=== PATIENT | female | born 1995 | race Caucasian/White ===

== ENCOUNTER → 2017-02-06 | Outpatient (CLI) | payer OTHER, SELFPAY | PROVIDERS: Visit Provider Obstetrics & Gynecology | DX: Z36.89 Encounter for other specified antenatal screening (principal); Z34.80 Encounter for supervision of other normal pregnancy, unspecified trimester | CPT/HCPCS: 36415; 80055; 80305; 84443; 86703; G0432 ==

== ENCOUNTER → 2017-04-27 15:38 | Outpatient (CLI) | payer OTHER, SELFPAY ==
[2017-05-12 16:29] LABS: Results Report (.)
[2017-06-02 16:08] LABS: Gestat. Age Based On EDD
[2017-06-02 16:09] LABS: Insulin Dep Diabetes No
[2017-06-02 16:10] LABS: DIA MoM 1.85; DSR (Second Trimester) 1 IN 780; OSBR Risk 1 IN 10000; uE3 MoM 0.51
== END ==
PROVIDERS: PCP Emergency Medicine; Visit Provider Obstetrics & Gynecology
DX: Z36.0 Encounter for antenatal screening for chromosomal anomalies (principal)
CPT/HCPCS: 36415; 82106

== ENCOUNTER → 2017-06-09 10:32 | Outpatient (CLI) | payer OTHER, SELFPAY ==
--- NOTE | 2017-06-09 10:36 | XR_ITS ---
XR chest 2V HISTORY: ITS.REASON: severe cough in ORDERING PHYSICIAN: Nicholas Michelle MD PATIENT AGE: 22 years COMPARISON: FINDINGS: The cardiomediastinal silhouette and pulmonary vascularity are within normal limits. There is some patchy density in the right middle lobe consistent with a patchy area of pneumonia. Remaining lungs are clear. There is some minimal blunting of the right CP angle. This however was present on the previous exam. IMPRESSION: Patchy pneumonia in the right middle lobe
== END ==
PROVIDERS: PCP Emergency Medicine; Visit Provider Obstetrics & Gynecology
DX: Z34.90 Encounter for supervision of normal pregnancy, unspecified, unspecified trimester (principal); J40 Bronchitis, not specified as acute or chronic
CPT/HCPCS: 71046

== ENCOUNTER → 2017-06-22 15:52 | Outpatient (CLI) | payer OTHER, SELFPAY ==
[2017-06-22 19:05] LABS: Glucose 1 Hour 139 mg/dL (74-106)
== END ==
PROVIDERS: Visit Provider Obstetrics & Gynecology
DX: Z34.90 Encounter for supervision of normal pregnancy, unspecified, unspecified trimester (principal)
CPT/HCPCS: 36415; 82951

== ENCOUNTER 2017-08-20 22:59 | Outpatient (CLI) | payer OTHER, SELFPAY ==
[2017-08-20 23:10] VITALS: BMI 23.8
[2017-08-20 23:30] LABS: Appearance,Urine CLEAR (Clear); Bilirubin,Urine Negative (Negative); Blood, Urine Negative (Negative); Color,Urine YELLOW (Yellow); Glucose,Urine (UA) Negative (Negative); Ketones,Urine Negative (Negative); Leukocyte Esterase,Urine Negative (Negative); Microscopic, Urine URINE MICROSCOPIC (MICROSCOPIC); Nitrate,Urine Negative (Negative); Protein,Urine Negative (Negative); Specific Gravity, Urine <= 1.005 (1.005-1.030); Urobilinogen,Urine 0.2 EU/dl (0.2)
[2017-08-20 23:35] VITALS: BP 131/88; PULSE 112; RESP 16; TEMP 37.1; O2SAT 98; BMI 23.8
[2017-08-20 23:35] LABS: Bacteria,Urine 1+ /lpf
[2017-08-21 00:07] LABS: Fetal Fibronectin (Rapid) Negative (Negative)
== END 2017-08-21 00:15 | disposition home or self-care (01) ==
LOC: OBOUT 23:04 → OB 23:05
PROVIDERS: PCP Obstetrics & Gynecology; Visit Provider Obstetrics & Gynecology
DX: O47.03 False labor before 37 completed weeks of gestation, third trimester (principal); Z3A.35 35 weeks gestation of pregnancy
CPT/HCPCS: 59025; 81001; 82731

== ENCOUNTER → 2017-08-24 14:46 | Outpatient (REF) | payer OTHER, SELFPAY | LOC: LAB 14:46 | PROVIDERS: Visit Provider Obstetrics & Gynecology | DX: Z34.90 Encounter for supervision of normal pregnancy, unspecified, unspecified trimester (principal) | CPT/HCPCS: 86403 ==

== ENCOUNTER 2017-09-17 05:07 | Inpatient (IN) ==
[2017-09-17 05:44] LABS: Basophils # 0.1 K/mm3 (0-0.2); Basophils % 0.3 % (0.1-2.0); Eosinophils # 0.2 K/mm3 (0.0-0.4); Eosinophils % 1.1 % (0.1-12.0); Hematocrit 35.5 % (37.0-47.0); Hemoglobin 11.9 g/dL (12.2-16.2); Lymphocytes # 3.5 K/mm3 (0.7-4.5); Lymphocytes % 22.4 K/mm3 (10-50); Mean Corpuscular HGB Conc 33.6 g/dL (31.8-35.4); Mean Corpuscular Hemoglobin 31.6 pg (27.0-31.2); Mean Corpuscular Volume 94.2 fl (81-99); Mean Platelet Volume 7.4 fl (7.4-10.4); Monocytes # 0.8 K/mm3 (0.1-1.0); Monocytes % 5.3 % (1.7-9.3); Neutrophils # 11.1 K/mm3 (1.8-7.8); Neutrophils % 70.9 % (37.0-80.0); Platelet Count 338 K/mm3 (142-424); Red Blood Count 3.76 M/mm3 (4.20-5.40); Red Cell Distribution Width 13.4 % (11.5-17.5); White Blood Count 15.7 K/mm3 (4.8-10.8)
--- NOTE | 2017-09-17 06:08 | Progress Note ---
Internal Medicine - PN: Subj *Date: 09/17/17 (This 22-year-old 4, para 3, Ab0 white female was admitted 39 2/7 weeks with irregular contractions. Her cervix is 2 cm dilated, 75% effaced, with a presenting vertex at -2 station. Plan is for augmentation with intravenous Pitocin, and delivery.) *Time: 06:07 Exam Vital signs and Labs for Last 24 Hours: Laboratory Results - last 24 hr 09/17/17 05:35: WBC 15.7 H, RBC 3.76 L, Hgb 11.9 L, Hct 35.5 L, MCV 94.2, MCH 31.6 H, MCHC 33.6, RDW 13.4, Plt Count 338, MPV 7.4, Neut % (Auto) 70.9, Lymph % (Auto) 22.4, [place] % (Auto) 5.3, Eos % (Auto) 1.1, Baso % (Auto) 0.3, Neut # ( Auto) 11.1 H, Lymph # (Auto) 3.5, [place] # (Auto) 0.8, Eos # (Auto) 0.2, Baso # ( Auto) 0.1 I & O for Last 24 hours: Intake & Output 09/14/17 09/15/17 09/16/17 09/17/17 11:59 11:59 11:59 11:59 Weight 138 lb
[2017-09-17 06:17] LABS: Eosinophils % 2 % (0-3); Lymphocytes % 20 % (10-50); Monocytes % 1 % (2-9); Neutrophils % 77 % (42-76); Total Cells Counted 100
[2017-09-17 06:18] LABS: Anisocytosis 1+; Stomatocytes 1+
--- NOTE | 2017-09-17 08:31 | Progress Note ---
Internal Medicine - PN: Subj *Date: 09/17/17 (Cervix now 3 cm dilated 75% effaced, with the presenting vertex at -2 station. Patient will receive an epidural.) *Time: 08:30 Exam Vital signs and Labs for Last 24 Hours: Temp Pulse Resp BP Pulse Ox 98.2 F 74 16 124/64 99 09/17/17 08:00 09/17/17 08:00 09/17/17 08:00 09/17/17 08:00 09/17/17 06:12 Laboratory Results - last 24 hr 09/17/17 05:35: WBC 15.7 H, RBC 3.76 L, Hgb 11.9 L, Hct 35.5 L, MCV 94.2, MCH 31.6 H, MCHC 33.6, RDW 13.4, Plt Count 338, MPV 7.4, Neut % (Auto) 70.9, Lymph % (Auto) 22.4, [place] % (Auto) 5.3, Eos % (Auto) 1.1, Baso % (Auto) 0.3, Neut # ( Auto) 11.1 H, Lymph # (Auto) 3.5, [place] # (Auto) 0.8, Eos # (Auto) 0.2, Baso # ( Auto) 0.1, Total Counted 100, Neutrophils % (Manual) 77 H, Lymphocytes % (Manual ) 20, Monocytes % (Manual) 1 L, Eosinophils % (Manual) 2, Platelet Estimate Normal, Anisocytosis 1+, Stomatocytes 1+ 09/17/17 05:35: Blood Type O Positive, Antibody Screen Negative I & O for Last 24 hours: Intake & Output 09/14/17 09/15/17 09/16/17 09/17/17 11:59 11:59 11:59 11:59 Weight 138 lb
--- NOTE | 2017-09-17 09:42 | Progress Note ---
[facility] Anesthesia Checklist - Patient Identification Patient Identification: Arm Band - Structural Data Admitted From: Inpatient Planned Operative Procedure/s: labor epidural Consent for Planned Operative Procedure(s) Verified: Yes Verified Documents: Surgical Consent, History and Physical - NPO Status Verified Time NPO: 00:00 - Additional verifications Anesthesia Reactions: No - Airway Assessment C-Spine Mobility Assessed: Yes TMJ Mobility Assessed: Yes Dentition: Good Dentition - Neurological Assessment Level of Consciousness: Awake, Alert - Anesthesia Plan Anesthesia Risk discussed: Yes Anesthesia Plan: Verified ASA Class: II Anesthesia Type: Epidural [facility] Anesthesia HX I have reviewed the patient's past medical history: Yes Medical History: Reports:: Anxiety, Hypertension Other Medical History: Reports: Other Laterality Cases: Bilateral: Tonsillectomy Other Surgeries: Yes: Other. No: Amputation: No Fractures: No *Family Hx:: Hypertension, Diabetes
--- NOTE | 2017-09-17 09:49 | Progress Note ---
Internal Medicine - PN: Subj *Date: 09/17/17 *Time: 09:47 (Cervix now 3 cm, 80%, -2 vertex. Amniotomy revealed clear fluid and an internal toco has been placed. Epidural is in situ.) Exam Vital signs and Labs for Last 24 Hours: Temp Pulse Resp BP Pulse Ox 98.2 F 74 16 124/64 99 09/17/17 08:00 09/17/17 08:00 09/17/17 08:00 09/17/17 08:00 09/17/17 06:12 Laboratory Results - last 24 hr 09/17/17 05:35: WBC 15.7 H, RBC 3.76 L, Hgb 11.9 L, Hct 35.5 L, MCV 94.2, MCH 31.6 H, MCHC 33.6, RDW 13.4, Plt Count 338, MPV 7.4, Neut % (Auto) 70.9, Lymph % (Auto) 22.4, [place] % (Auto) 5.3, Eos % (Auto) 1.1, Baso % (Auto) 0.3, Neut # ( Auto) 11.1 H, Lymph # (Auto) 3.5, [place] # (Auto) 0.8, Eos # (Auto) 0.2, Baso # ( Auto) 0.1, Total Counted 100, Neutrophils % (Manual) 77 H, Lymphocytes % (Manual ) 20, Monocytes % (Manual) 1 L, Eosinophils % (Manual) 2, Platelet Estimate Normal, Anisocytosis 1+, Stomatocytes 1+ 09/17/17 05:35: Blood Type O Positive, Antibody Screen Negative I & O for Last 24 hours: Intake & Output 09/14/17 09/15/17 09/16/17 09/17/17 11:59 11:59 11:59 11:59 Weight 138 lb
--- NOTE | 2017-09-17 11:02 | Progress Note ---
Internal Medicine - PN: Subj *Date: 09/17/17 (Cervix now 4 cm, 80%, -2 vertex. Comfortable with epidural.) *Time: 11:02 Exam Vital signs and Labs for Last 24 Hours: Temp Pulse Resp BP Pulse Ox 98.2 F 74 16 124/64 99 09/17/17 08:00 09/17/17 08:00 09/17/17 08:00 09/17/17 08:00 09/17/17 06:12 Laboratory Results - last 24 hr 09/17/17 05:35: WBC 15.7 H, RBC 3.76 L, Hgb 11.9 L, Hct 35.5 L, MCV 94.2, MCH 31.6 H, MCHC 33.6, RDW 13.4, Plt Count 338, MPV 7.4, Neut % (Auto) 70.9, Lymph % (Auto) 22.4, [place] % (Auto) 5.3, Eos % (Auto) 1.1, Baso % (Auto) 0.3, Neut # ( Auto) 11.1 H, Lymph # (Auto) 3.5, [place] # (Auto) 0.8, Eos # (Auto) 0.2, Baso # ( Auto) 0.1, Total Counted 100, Neutrophils % (Manual) 77 H, Lymphocytes % (Manual ) 20, Monocytes % (Manual) 1 L, Eosinophils % (Manual) 2, Platelet Estimate Normal, Anisocytosis 1+, Stomatocytes 1+ 09/17/17 05:35: Blood Type O Positive, Antibody Screen Negative I & O for Last 24 hours: Intake & Output 09/14/17 09/15/17 09/16/17 09/17/17 11:59 11:59 11:59 11:59 Weight 138 lb
[2017-09-17 12:45] LABS: Microscopic, Urine URINE MICROSCOPIC (MICROSCOPIC)
--- NOTE | 2017-09-17 13:18 | Progress Note ---
Internal Medicine - PN: Subj *Date: 09/17/17 (Contractions have become irregular. Cervix 4 cm. We will increase IV Pitocin.) *Time: 13:17 Exam Vital signs and Labs for Last 24 Hours: Temp Pulse Resp BP Pulse Ox 98.2 F 74 16 124/64 99 09/17/17 08:00 09/17/17 08:00 09/17/17 08:00 09/17/17 08:00 09/17/17 06:12 Laboratory Results - last 24 hr 09/17/17 05:35: WBC 15.7 H, RBC 3.76 L, Hgb 11.9 L, Hct 35.5 L, MCV 94.2, MCH 31.6 H, MCHC 33.6, RDW 13.4, Plt Count 338, MPV 7.4, Neut % (Auto) 70.9, Lymph % (Auto) 22.4, [place] % (Auto) 5.3, Eos % (Auto) 1.1, Baso % (Auto) 0.3, Neut # ( Auto) 11.1 H, Lymph # (Auto) 3.5, [place] # (Auto) 0.8, Eos # (Auto) 0.2, Baso # ( Auto) 0.1, Total Counted 100, Neutrophils % (Manual) 77 H, Lymphocytes % (Manual ) 20, Monocytes % (Manual) 1 L, Eosinophils % (Manual) 2, Platelet Estimate Normal, Anisocytosis 1+, Stomatocytes 1+ 09/17/17 05:35: Blood Type O Positive, Antibody Screen Negative I & O for Last 24 hours: Intake & Output 09/15/17 09/16/17 09/17/17 09/18/17 11:59 11:59 11:59 11:59 Weight 138 lb
[2017-09-17 13:22] LABS: Appearance,Urine CLEAR (Clear); Bilirubin,Urine Negative (Negative); Blood, Urine Negative (Negative); Color,Urine YELLOW (Yellow); Glucose,Urine (UA) Negative (Negative); Ketones,Urine Negative (Negative); Leukocyte Esterase,Urine Negative (Negative); Protein,Urine Negative (Negative); Urobilinogen,Urine 0.2 EU/dl (0.2)
--- NOTE | 2017-09-17 14:47 | Progress Note ---
Internal Medicine - PN: Subj *Date: 09/17/17 (Cervix has not changed in spite of good contractions. Head has not descended further. Plan: Observation for now.) *Time: 14:46 Exam Vital signs and Labs for Last 24 Hours: Temp Pulse Resp BP Pulse Ox 98.2 F 74 16 124/64 99 09/17/17 08:00 09/17/17 08:00 09/17/17 08:00 09/17/17 08:00 09/17/17 06:12 Laboratory Results - last 24 hr 09/17/17 05:35: WBC 15.7 H, RBC 3.76 L, Hgb 11.9 L, Hct 35.5 L, MCV 94.2, MCH 31.6 H, MCHC 33.6, RDW 13.4, Plt Count 338, MPV 7.4, Neut % (Auto) 70.9, Lymph % (Auto) 22.4, [place] % (Auto) 5.3, Eos % (Auto) 1.1, Baso % (Auto) 0.3, Neut # ( Auto) 11.1 H, Lymph # (Auto) 3.5, [place] # (Auto) 0.8, Eos # (Auto) 0.2, Baso # ( Auto) 0.1, Total Counted 100, Neutrophils % (Manual) 77 H, Lymphocytes % (Manual ) 20, Monocytes % (Manual) 1 L, Eosinophils % (Manual) 2, Platelet Estimate Normal, Anisocytosis 1+, Stomatocytes 1+ 09/17/17 05:35: Blood Type O Positive, Antibody Screen Negative 09/17/17 09:45: Urine Color Yellow, Urine Appearance Clear, Urine pH 8.0, Ur Specific [place] 1.010, Urine Protein Negative, Urine Glucose (UA) Negative, Urine Ketones Negative, Urine Blood Negative, Urine Nitrate Negative, Urine Bilirubin Negative, Urine Urobilinogen 0.2, Ur Leukocyte Esterase Negative, Urine RBC 3-5, Urine WBC None, Ur Squamous Epith Cells None, Urine Bacteria None I & O for Last 24 hours: Intake & Output 09/15/17 09/16/17 09/17/17 09/18/17 11:59 11:59 11:59 11:59 Weight 138 lb
--- NOTE | 2017-09-17 16:05 | Progress Note ---
Internal Medicine - PN: Subj *Date: 09/17/17 (Still no progress in spite of good contractions. We will continue to observe for now. Discussed possible .) *Time: 16:04 Exam Vital signs and Labs for Last 24 Hours: Temp Pulse Resp BP Pulse Ox 98.2 F 74 16 124/64 99 09/17/17 08:00 09/17/17 08:00 09/17/17 08:00 09/17/17 08:00 09/17/17 06:12 Laboratory Results - last 24 hr 09/17/17 05:35: WBC 15.7 H, RBC 3.76 L, Hgb 11.9 L, Hct 35.5 L, MCV 94.2, MCH 31.6 H, MCHC 33.6, RDW 13.4, Plt Count 338, MPV 7.4, Neut % (Auto) 70.9, Lymph % (Auto) 22.4, [place] % (Auto) 5.3, Eos % (Auto) 1.1, Baso % (Auto) 0.3, Neut # ( Auto) 11.1 H, Lymph # (Auto) 3.5, [place] # (Auto) 0.8, Eos # (Auto) 0.2, Baso # ( Auto) 0.1, Total Counted 100, Neutrophils % (Manual) 77 H, Lymphocytes % (Manual ) 20, Monocytes % (Manual) 1 L, Eosinophils % (Manual) 2, Platelet Estimate Normal, Anisocytosis 1+, Stomatocytes 1+ 09/17/17 05:35: Blood Type O Positive, Antibody Screen Negative 09/17/17 09:45: Urine Color Yellow, Urine Appearance Clear, Urine pH 8.0, Ur Specific [place] 1.010, Urine Protein Negative, Urine Glucose (UA) Negative, Urine Ketones Negative, Urine Blood Negative, Urine Nitrate Negative, Urine Bilirubin Negative, Urine Urobilinogen 0.2, Ur Leukocyte Esterase Negative, Urine RBC 3-5, Urine WBC None, Ur Squamous Epith Cells None, Urine Bacteria None I & O for Last 24 hours: Intake & Output 09/15/17 09/16/17 09/17/17 09/18/17 11:59 11:59 11:59 11:59 Weight 138 lb
--- NOTE | 2017-09-17 16:55 | Progress Note ---
Internal Medicine - PN: Subj *Date: 09/17/17 (Cervix now a rim, vertex at 0/+1 station.) *Time: 16:55 Exam Vital signs and Labs for Last 24 Hours: Temp Pulse Resp BP Pulse Ox 98.2 F 74 16 124/64 99 09/17/17 08:00 09/17/17 08:00 09/17/17 08:00 09/17/17 08:00 09/17/17 06:12 Laboratory Results - last 24 hr 09/17/17 05:35: WBC 15.7 H, RBC 3.76 L, Hgb 11.9 L, Hct 35.5 L, MCV 94.2, MCH 31.6 H, MCHC 33.6, RDW 13.4, Plt Count 338, MPV 7.4, Neut % (Auto) 70.9, Lymph % (Auto) 22.4, [place] % (Auto) 5.3, Eos % (Auto) 1.1, Baso % (Auto) 0.3, Neut # ( Auto) 11.1 H, Lymph # (Auto) 3.5, [place] # (Auto) 0.8, Eos # (Auto) 0.2, Baso # ( Auto) 0.1, Total Counted 100, Neutrophils % (Manual) 77 H, Lymphocytes % (Manual ) 20, Monocytes % (Manual) 1 L, Eosinophils % (Manual) 2, Platelet Estimate Normal, Anisocytosis 1+, Stomatocytes 1+ 09/17/17 05:35: Blood Type O Positive, Antibody Screen Negative 09/17/17 09:45: Urine Color Yellow, Urine Appearance Clear, Urine pH 8.0, Ur Specific [place] 1.010, Urine Protein Negative, Urine Glucose (UA) Negative, Urine Ketones Negative, Urine Blood Negative, Urine Nitrate Negative, Urine Bilirubin Negative, Urine Urobilinogen 0.2, Ur Leukocyte Esterase Negative, Urine RBC 3-5, Urine WBC None, Ur Squamous Epith Cells None, Urine Bacteria None I & O for Last 24 hours: Intake & Output 09/15/17 09/16/17 09/17/17 09/18/17 11:59 11:59 11:59 11:59 Weight 138 lb
--- NOTE | 2017-09-17 16:58 | Progress Note ---
Internal Medicine - PN: Subj *Date: 09/17/17 (Cervix still 4 cm, but the vertex has descended to -1 station.) *Time: 16:57 Exam Vital signs and Labs for Last 24 Hours: Temp Pulse Resp BP Pulse Ox 98.2 F 74 16 124/64 99 09/17/17 08:00 09/17/17 08:00 09/17/17 08:00 09/17/17 08:00 09/17/17 06:12 Laboratory Results - last 24 hr 09/17/17 05:35: WBC 15.7 H, RBC 3.76 L, Hgb 11.9 L, Hct 35.5 L, MCV 94.2, MCH 31.6 H, MCHC 33.6, RDW 13.4, Plt Count 338, MPV 7.4, Neut % (Auto) 70.9, Lymph % (Auto) 22.4, [place] % (Auto) 5.3, Eos % (Auto) 1.1, Baso % (Auto) 0.3, Neut # ( Auto) 11.1 H, Lymph # (Auto) 3.5, [place] # (Auto) 0.8, Eos # (Auto) 0.2, Baso # ( Auto) 0.1, Total Counted 100, Neutrophils % (Manual) 77 H, Lymphocytes % (Manual ) 20, Monocytes % (Manual) 1 L, Eosinophils % (Manual) 2, Platelet Estimate Normal, Anisocytosis 1+, Stomatocytes 1+ 09/17/17 05:35: Blood Type O Positive, Antibody Screen Negative 09/17/17 09:45: Urine Color Yellow, Urine Appearance Clear, Urine pH 8.0, Ur Specific [place] 1.010, Urine Protein Negative, Urine Glucose (UA) Negative, Urine Ketones Negative, Urine Blood Negative, Urine Nitrate Negative, Urine Bilirubin Negative, Urine Urobilinogen 0.2, Ur Leukocyte Esterase Negative, Urine RBC 3-5, Urine WBC None, Ur Squamous Epith Cells None, Urine Bacteria None I & O for Last 24 hours: Intake & Output 09/15/17 09/16/17 09/17/17 09/18/17 11:59 11:59 11:59 11:59 Weight 138 lb
--- NOTE | 2017-09-17 18:21 | Progress Note ---
Internal Medicine - PN: Subj *Date: 09/17/17 *Time: 18:20 (Cervix is now 5 cm dilated. Contractions are regular. Baby looks good on the monitor. Signing out to Dr. Nisha Bowen and the patient understands that and is accepting of that plan.) Exam Vital signs and Labs for Last 24 Hours: Temp Pulse Resp BP Pulse Ox 98.2 F 74 16 124/64 99 09/17/17 08:00 09/17/17 08:00 09/17/17 08:00 09/17/17 08:00 09/17/17 06:12 Laboratory Results - last 24 hr 09/17/17 05:35: WBC 15.7 H, RBC 3.76 L, Hgb 11.9 L, Hct 35.5 L, MCV 94.2, MCH 31.6 H, MCHC 33.6, RDW 13.4, Plt Count 338, MPV 7.4, Neut % (Auto) 70.9, Lymph % (Auto) 22.4, [place] % (Auto) 5.3, Eos % (Auto) 1.1, Baso % (Auto) 0.3, Neut # ( Auto) 11.1 H, Lymph # (Auto) 3.5, [place] # (Auto) 0.8, Eos # (Auto) 0.2, Baso # ( Auto) 0.1, Total Counted 100, Neutrophils % (Manual) 77 H, Lymphocytes % (Manual ) 20, Monocytes % (Manual) 1 L, Eosinophils % (Manual) 2, Platelet Estimate Normal, Anisocytosis 1+, Stomatocytes 1+ 09/17/17 05:35: Blood Type O Positive, Antibody Screen Negative 09/17/17 09:45: Urine Color Yellow, Urine Appearance Clear, Urine pH 8.0, Ur Specific [place] 1.010, Urine Protein Negative, Urine Glucose (UA) Negative, Urine Ketones Negative, Urine Blood Negative, Urine Nitrate Negative, Urine Bilirubin Negative, Urine Urobilinogen 0.2, Ur Leukocyte Esterase Negative, Urine RBC 3-5, Urine WBC None, Ur Squamous Epith Cells None, Urine Bacteria None I & O for Last 24 hours: Intake & Output 09/15/17 09/16/17 09/17/17 09/18/17 11:59 11:59 11:59 11:59 Weight 138 lb
--- NOTE | 2017-09-18 00:37 | Progress Note ---
Labor Note - Subjective: Date: 09/18/17 Time: 00:26 irregular contractions Comment:: IOL for hypertension in . BP has been stable throughout labor course. When I assumed care of this patient, pitocin was at 39mU and contraction pattern irregular/dysfunctional, with coupling. Cervix was 5cm but effacement had changed from 50% to 75%. Pitocin was stopped for 30 minutes and restarted at 10mU. 2 hours later she was examined by nursing staff and cervix reported 8cm but still -1 station. 1 hour after that cervix was reported as anterior lip and zero station. An hour after that exam, I examined the patient myself and cervix is 5/50%. Nursing assessment is that cervix may be edematous, but this is the first exam I have done on her today so it is unclear to me if cervix has become edematous or simply is only 50% effaced. Pelvis is adequate, with gynecoid structure and no concern for CPD. In light of aggressive pitocin augmentation and early amniotomy prior to onset of active labor pattern, along with dysfunctional pattern of contractions/coupling, it seems premature to declare a failure to progress in labor. heart tracing remains reassuring and the patient has not had any fever or signs of chorioamnionitis. She does not want to proceed with a c section at this time, and I agree that in the face of reassuring status, it is reasonable to give her more time to dilate under more optimal circumstances. Will turn pitocin off for 2 hours and allow uterus to rest and receptors to desaturate. Will begin pitocin again at that time, only increasing by 2mU q 20 minutes but without going so high. Patient repositioned and encouraged to rest for a few hours before resuming induction. Will start ampicillin in anticipation of prolonged ROM. - Objective: NST:: Reactive Contractions:: every 4-5 minutes Cervical Dilation:: 5 Effacement:: 75% Station: -1 Membranes: ruptured - Fetus: Monitoring?: Yes monitoring type:: Internal - Assessment: Patient Problems: All Active Problems Hypertension complicating in third trimester (Acute) Smoking (tobacco) complicating , third trimester (Acute) Encounter for induction of labor (Acute) Anemia during in third trimester (Acute) Pneumonia (Acute) (Acute)
--- NOTE | 2017-09-18 05:57 | Progress Note ---
Internal Medicine - PN: Subj *Date: 09/18/17 *Time: 05:55 (This is hospital day #2. The patient has now been in labor for almost 24 hours, without significant progress. At around 2300 hrs. last night she exhibited a low-grade fever and was started on IV ampicillin. Her current temperature is 99.3 p.o. and she has received Ancef and Flagyl. Her cervix is still in the 5 cm range. To this point the baby looks good on the monitor and we seen no meconium. Plan is for section. The patient understands and accepts the rationale and risks of surgery.) Exam Vital signs and Labs for Last 24 Hours: Temp Pulse Resp BP Pulse Ox 98.2 F 74 16 124/64 99 09/17/17 08:00 09/17/17 08:00 09/17/17 08:00 09/17/17 08:00 09/17/17 06:12 Laboratory Results - last 24 hr 09/17/17 05:35: Total Counted 100, Neutrophils % (Manual) 77 H, Lymphocytes % ( Manual) 20, Monocytes % (Manual) 1 L, Eosinophils % (Manual) 2, Platelet Estimate Normal, Anisocytosis 1+, Stomatocytes 1+ 09/17/17 05:35: Blood Type O Positive, Antibody Screen Negative 09/17/17 09:45: Urine Color Yellow, Urine Appearance Clear, Urine pH 8.0, Ur Specific [place] 1.010, Urine Protein Negative, Urine Glucose (UA) Negative, Urine Ketones Negative, Urine Blood Negative, Urine Nitrate Negative, Urine Bilirubin Negative, Urine Urobilinogen 0.2, Ur Leukocyte Esterase Negative, Urine RBC 3-5, Urine WBC None, Ur Squamous Epith Cells None, Urine Bacteria None I & O for Last 24 hours: Intake & Output 09/15/17 09/16/17 09/17/17 09/18/17 11:59 11:59 11:59 11:59 Weight 138 lb
[2017-09-18 06:23] LABS: Basophils % 0.2 % (0.1-2.0); Eosinophils # 0.3 K/mm3 (0.0-0.4); Eosinophils % 1.5 % (0.1-12.0); Hematocrit 33.9 % (37.0-47.0); Hemoglobin 11.4 g/dL (12.2-16.2); Lymphocytes # 1.7 K/mm3 (0.7-4.5); Lymphocytes % 9.6 K/mm3 (10-50); Mean Corpuscular HGB Conc 33.7 g/dL (31.8-35.4); Mean Platelet Volume 7.3 fl (7.4-10.4); Monocytes # 0.9 K/mm3 (0.1-1.0); Monocytes % 4.8 % (1.7-9.3); Neutrophils # 14.8 K/mm3 (1.8-7.8); Neutrophils % 83.9 % (37.0-80.0); Platelet Count 273 K/mm3 (142-424); Red Blood Count 3.56 M/mm3 (4.20-5.40); Red Cell Distribution Width 13.4 % (11.5-17.5); White Blood Count 17.6 K/mm3 (4.8-10.8)
--- NOTE | 2017-09-18 07:18 | Operative Note ---
Date of procedure: 09/18/17 Pre-op Diagnosis:: 1. Term intrauterine . 2. Failure to progress. 3. Presumed chorioamnionitis. Post-op Diagnosis:: 1. Term intrauterine , delivered--- 8/10, 5 lbs. 14 oz., 17.5 inch female , born at 0634. 2. Failure to progress. 3. Presumed chorioamnionitis. 4. Partial placenta accreta. Procedure performed:: Primary low transverse cervical section with manual removal of placenta Surgeon:: Nicholas Michelle MD Braid Pattern Setter(s):: Dr. Bowen PRODUCTION SORTER:: Other (MAKENZIE La) Anesthesia: epidural Estimated blood loss (mL): 400 Operative findings:: Term intrauterine with partial accreta Operative note:: After the patient was prepped and draped in usual fashion and epidural anesthesia was activated, a low Pfannenstiel incision was made across midline, and the was in usual fashion, bleeders being clamped and coagulated along the way. The peritoneum was entered with a knife, and extended above and below with Metzenbaum scissors. The bladder peritoneum was sharply and bluntly dissected free, and the bladder was protected with a bladder blade. The uterus was entered in a low transverse fashion with a knife, and the incision was extended bluntly, bilaterally. The baby was found to be in the LOP position of the vertex and, with appropriate fundal pressure, the head was easily delivered. There was no nuchal cord, nor was there any meconium. The baby's nasal and oropharynx were bulb suctioned, and the baby cried spontaneously on the abdomen, as was delivered. The cord was clamped and cut, 3 vessels were noted to be within the cord, and cord blood was obtained. The cord pH was 7.38. The baby was handed into the arms of the attending die equipment operator, Dr. Tim, who assigned Apgars of 8 at 1 minute and 10 at 5 minutes to this 5 lbs. 14 oz., 17.5 inch female infant, born at 0634. The baby presenting to the nursery in excellent condition, along the patient's mother, who have been present in the operating room. The placenta was found to be partially created, and required manual extraction. It was observed closely and appeared to be completely removed. The placenta was cultured aerobically and anaerobically and submitted to pathology. A ring forceps was used to assure adequate drainage to the cervix; this was then passed off the field, as a nonsterile instrument. The uterus was closed in 2 layers, the first a running locked suture of #1 Vicryl as an endometrial layer, followed by a running unlocked suture of #1 Vicryl as a myometrial layer, imbricating over the first. The bladder peritoneum was closed with a running unlocked suture of 2-0 Vicryl. Blood and clots were then swept from the gutters, and the tubes and ovaries were inspected and found to be normal. The peritoneum was grasped with 3 Shakira clamps, and closed with a running semi-locked suture of 0 Vicryl. The muscle was approximated with a running unlocked suture of 0 Vicryl. The fascia was closed with a running locked suture of #1 Vicryl. The subcutaneous fat and Yemi's fascia were closed with a running unlocked suture of 2-0 Vicryl. The skin was closed with a subcuticular suture of 3-0 Vicryl, and appropriately dressed. The urine is clear in the Trent catheter. The sponge and needle count was correct. The estimated blood loss was 400 cc. A pelvic examination at the close of the procedure expressed blood and clots from the involuting uterus, with IV Pitocin running. The patient tolerated procedure well, was taken to PACU in excellent condition. She will remain on postop antibiotics. Blood type is O+. Rubella titer is immune. She plans to bottlefeed. Condition: stable Disposition: PACU Specimens:: Placenta Complications:: None
--- NOTE | 2017-09-18 07:21 | Progress Note ---
[facility] Anesthesia Record Part I Intake, IV Amount: 750 Estimated blood loss (mL): 500 Urine output (mL): 400 Blood Products used (#): none Blood Pressure: 154/88 SaO2: 99 Pulse Rate: 77 Respiratory Rate: 13 Temperature: 97.8 F Patient is:: Awake, Stable Stable to PACU at:: 07:13
--- NOTE | 2017-09-18 07:22 | Progress Note ---
[facility] Anesthesia Record Part II Discharge Time: 07:43 Destination: Obstetric PACU nurse assessment reviewed?: Yes Patient Condition:: Good Anesthesia Complications:: None
[2017-09-18 07:33] LABS: Lymphocytes % 6 % (10-50); Monocytes % 1 % (2-9); Neutrophils % 92 % (42-76); RBC Morphology Normal; Total Cells Counted 100
--- NOTE | 2017-09-18 08:03 | Pharmacy Consult Notes ---
[facility] Pharmacy VTE Monitoring - Patient Demographics Admission date: 09/17/17 Report Date: 09/18/17 Time: 08:03 Allergies/Adverse Reactions: Patient Allergies No Known Allergies Allergy (Verified 09/17/17 06:07) Height: 1.55 m Weight: 62.596 kg Patient Problems: Current Active Problems Hypertension complicating in third trimester (Acute) Smoking (tobacco) complicating , third trimester (Acute) Encounter for induction of labor (Acute) Anemia during in third trimester (Acute) - VTE Risk Labs: VTE Related Lab Results Hgb 11.4 g/dL (12.2-16.2) L 09/18/17 06:05 Hct 33.9 % (37.0-47.0) L 09/18/17 06:05 Plt Count 273 K/mm3 (142-424) 09/18/17 06:05 - Prophylaxis VTE Prophylaxis Ordered?: Yes Types of VTE Prophylaxis: IPCS Knee High Location of Applied Device: Bilateral Lower Extremeties - VTE Diagnosis Confirmed Treatment or plan recommended: Continue Current Treatment
--- NOTE | 2017-09-18 14:03 | Progress Note ---
Internal Medicine - PN: Subj *Date: 09/18/17 *Time: 14:02 (This is day of surgery and delivery. Surgery has been explained to the patient, including the partial placenta accreta. Her wound is clean. Her abdomen is soft. Her uterine fundus is involuting well. Her lochia is normal. She is afebrile. Impression: Stable.) Exam Vital signs and Labs for Last 24 Hours: Temp Pulse Resp BP Pulse Ox 98.0 F 76 16 147/76 97 09/18/17 07:43 09/18/17 07:43 09/18/17 07:43 09/18/17 07:43 09/18/17 07:43 Laboratory Results - last 24 hr 09/18/17 06:05: WBC 17.6 H, RBC 3.56 L, Hgb 11.4 L, Hct 33.9 L, MCV 95.0, MCH 32.0 H, MCHC 33.7, RDW 13.4, Plt Count 273, MPV 7.3 L, Neut % (Auto) 83.9 H, Lymph % (Auto) 9.6 L, [place] % (Auto) 4.8, Eos % (Auto) 1.5, Baso % (Auto) 0.2, Neut # (Auto) 14.8 H, Lymph # (Auto) 1.7, [place] # (Auto) 0.9, Eos # (Auto) 0.3, Baso # (Auto) 0.0, Total Counted 100, Neutrophils % (Manual) 92 H, Lymphocytes % (Manual) 6 L, Atypical Lymphs % 1.0, Monocytes % (Manual) 1 L, Platelet Estimate Normal, RBC Morphology Normal 09/18/17 06:45: Cord ABG pH 7.38 I & O for Last 24 hours: Intake & Output 09/16/17 09/17/17 09/18/17 09/19/17 11:59 11:59 11:59 11:59 Intake Total 960 / 960 Output Total 110 / 110 Balance 850 / 850 Weight 138 lb 138 lb Microbiology Reports for the Last 24 Hours: Microbiology 09/18/17 Unknown Cervix - Final Not Reportable 09/18/17 Unknown Cervix - Final Not Reportable 09/18/17 Unknown Cervix - Final Not Reportable 09/18/17 Unknown Cervix - Final Not Reportable 09/18/17 Unknown Cervix - Final Not Reportable
[2017-09-19 07:02] LABS: Hemoglobin 7.9 g/dL (12.2-16.2)
[2017-09-19 07:03] LABS: Hematocrit 23.5 % (37.0-47.0)
--- NOTE | 2017-09-19 08:37 | Progress Note ---
Internal Medicine - PN: Subj *Date: 09/19/17 *Time: 08:36 (The patient is afebrile. Her vital signs are stable. Her wound is clean. Abdomen soft. Lochia normal. Uterine fundus involuting well. Her hemoglobin is 7.9 g, and given her diagnosis of partial placenta accreta, I feel transfusion is indicated. I have discussed this with the patient, who concurs. Therefore she will be transfused 2 units of packed cells today.) Exam Vital signs and Labs for Last 24 Hours: Temp Pulse Resp BP Pulse Ox 98.2 F 78 20 112/76 98 09/19/17 04:00 09/19/17 04:00 09/19/17 04:00 09/19/17 04:00 09/18/17 20:00 Laboratory Results - last 24 hr 09/17/17 05:35: Blood Type O Positive, Antibody Screen Negative, Crossmatch (AHG ) See Detail 09/19/17 06:25: Hgb 7.9 L*, Hct 23.5 L* I & O for Last 24 hours: Intake & Output 09/16/17 09/17/17 09/18/17 09/19/17 11:59 11:59 11:59 11:59 Intake Total 960 / 960 320 / 320 Output Total 110 / 110 Balance 850 / 850 320 / 320 Weight 138 lb 138 lb Microbiology Reports for the Last 24 Hours: Microbiology 09/18/17 Unknown Cervix Gram Stain - Final 09/18/17 Unknown Cervix Surgical Biopsy Culture - Preliminary 09/18/17 Unknown Cervix - Final Not Reportable 09/18/17 Unknown Cervix - Final Not Reportable 09/18/17 Unknown Cervix - Final Not Reportable 09/18/17 Unknown Cervix - Final Not Reportable 09/18/17 Unknown Cervix - Final Not Reportable
[2017-09-19 15:03] LABS: Hematocrit 31.3 % (37.0-47.0)
[2017-09-19 15:04] LABS: Hemoglobin 10.8 g/dL (12.2-16.2)
--- NOTE | 2017-09-20 09:06 | Progress Note ---
Internal Medicine - PN: Subj *Date: 09/20/17 *Time: 09:05 (After transfusion, her hemoglobin is 10.7 g. Impression: Stable. Probably home tomorrow.) Exam Vital signs and Labs for Last 24 Hours: Temp Pulse Resp BP Pulse Ox 98.2 F 70 18 119/81 99 09/19/17 19:52 09/19/17 19:52 09/19/17 19:52 09/19/17 19:52 09/19/17 19:52 Laboratory Results - last 24 hr 09/17/17 05:35: Blood Type O Positive, Antibody Screen Negative, Crossmatch (AHG ) See Detail 09/19/17 14:43: Hgb 10.8 L D, Hct 31.3 L I & O for Last 24 hours: Intake & Output 09/17/17 09/18/17 09/19/17 09/20/17 11:59 11:59 11:59 11:59 Intake Total 960 / 960 615 / 615 278 / 278 Output Total 110 / 110 Balance 850 / 850 615 / 615 278 / 278 Weight 138 lb 138 lb Microbiology Reports for the Last 24 Hours: Microbiology 09/18/17 Unknown Cervix Gram Stain - Final 09/18/17 Unknown Cervix Surgical Biopsy Culture - Preliminary Gram Positive Cocci
--- NOTE | 2017-09-21 06:50 | Progress Note ---
Internal Medicine - PN: Subj *Date: 09/21/17 *Time: 06:48 (This is the fifth hospital and third /postoperative day. The patient is afebrile. Vital signs are stable, but her blood pressure has been creeping up (now in the 160s over 90s). DTRs are normal. She is complaining of no headache or dizziness. She had been on labetalol toward the end of her , and this will be restarted. Her wound is clean. Her abdomen is soft. Her lochia is normal. She will be discharged today.) Exam Vital signs and Labs for Last 24 Hours: Temp Pulse Resp BP Pulse Ox 98.1 F 77 16 148/87 99 09/20/17 23:50 09/20/17 23:50 09/20/17 23:50 09/20/17 23:50 09/20/17 19:23 I & O for Last 24 hours: Intake & Output 09/18/17 09/19/17 09/20/17 09/21/17 11:59 11:59 11:59 11:59 Intake Total 960 / 960 615 / 615 278 / 278 Output Total 110 / 110 Balance 850 / 850 615 / 615 278 / 278 Weight 138 lb Microbiology Reports for the Last 24 Hours: Microbiology 09/18/17 Unknown Cervix Gram Stain - Final 09/18/17 Unknown Cervix Surgical Biopsy Culture - Preliminary Gram Positive Cocci
--- NOTE | 2017-09-21 06:58 | Discharge Summary ---
General - General Admission date:: 09/17/17 Discharge date: 09/21/17 (This 22-year-old 4, now para 3, Ab0 white female was admitted at 39-2/7 weeks of gestation with irregular contractions at 2 cm of dilatation. She had been on labetalol for mild preeclampsia and -induced hypertension, but her blood pressure was stable and that was not continued at the beginning of her labor. She was augmented with intravenous Pitocin, and labored under a labor epidural, which worked well. She made little progress and did not dilate beyond 4-5 cm. Late in the evening of the date of admission, she developed a low-grade fever, and entered antibiotics were begun. The baby looked good on the monitor throughout this process. When she had made no further progress (in spite of good contractions) by 0500 on 09/18/17, the decision was made for primary section. The patient was taken to the operating room, where a primary low transverse cervical section was carried out under her epidural anesthesia. The baby was an 8/10, 5 lbs. 14 oz., 17.5 inch female infant, who is bottlefeeding and is done well. The baby was born at 0634 on 09/18/17. At that point it became clear that the placenta was partially accreted, but it was able to be manually removed without too much difficulty. The placenta was cultured and sent for pathology. Ultimately the culture came back gram positive cocci. The patient was continued on IV antibiotics for 24 hours postop , and has remained afebrile. Her lochia has been normal. Her postop hemoglobin dipped to 7.9 g, after which she was transfused 2 units of packed cells and it has risen to 10.8 g, where she is clinically stable. Her uterine fundus is involuting. Her wound is clean. Her abdomen is soft. Her deep tendon reflexes remain normal; however, in the last 12 hours her blood pressure has crept up to the 160s over 90s. She has no complaints of headache or dizziness. She has been restarted on her labetalol 100 mg p.o. 3 times daily. Is discharged home on the fifth hospital and third postoperative/ day on iron and vitamins; on labetalol 100 mg p.o. 3 times daily (#30); and on Percocet 5/325 (#20), 1 p.o. q. 6 age as needed pain, to be supplemented with and transitioned to Tylenol and Motrin. She is a smoker but refuses cessation patches. Her blood type is O+. Her rubella titer is immune.) Objective Vital signs: Temp Pulse Resp BP Pulse Ox 98.1 F 77 16 148/87 99 09/20/17 23:50 09/20/17 23:50 09/20/17 23:50 09/20/17 23:50 09/20/17 19:23 Results Labs on day of discharge: Preliminary micro results at discharge 09/18/17 Unknown Surgical Biopsy Culture - Preliminary Cervix Gram Positive Cocci Discharge Plan - Patient Discharge Instructions Patient Instructions: Depression, Hemorrhage, Surgical Site Infection, DI for Postoperative Pain, [facility] Shaken Baby Syndrome - Follow up Plan Follow up with: Nicholas Michelle MD [Staff Physician] - 10/01/17 10:15 am Home Medications: Home Medications Medication Instructions Recorded Confirmed Type ferrous sulfate 325 mg (65 mg 325 mg PO TID tab 03/06/17 09/17/17 History iron) tablet 1 tab PO DAILY 03/12/17 09/17/17 History vitamin,calcium,vtzreyma-cxya-vvuas acid tablet Labetalol HCl [Normodyne 100mg 100 mg PO TID 09/17/17 09/17/17 History tablet] Prescriptions/Medication Reconciliation: No Action ferrous sulfate 325 mg (65 mg iron) tablet 325 mg PO TID tab vitamin,calcium,vmjlpraf-zlbh-fihsy acid tablet 1 tab PO DAILY albuterol sulfate HFA 90 mcg/actuation aerosol inhaler 2 puff INHALATION Q4- 6H PRN 30 Days #6.7 g PRN Reason: shortness of breath or wheezing Labetalol HCl [Normodyne 100mg tablet] 100 mg PO TID
== END 2017-09-21 09:25 | disposition home or self-care (01) ==
LOC: OB 05:07
PROVIDERS: ADMIT Obstetrics & Gynecology; ATTEND Obstetrics & Gynecology

== ENCOUNTER 2019-08-19 17:23 | Emergency (ER) | payer OTHER, SELFPAY ==
[2019-08-19 17:49] VITALS: BP 115/80; PULSE 97; RESP 20; TEMP 36.8; O2SAT 100; BMI 18.8
--- NOTE | 2019-08-19 18:05 | HMH.EDUTC ---
[facility] [place] Disposition Clinical Impression: Strep throat Disposition: Home, Self-Care Condition on Discharge: Good Instructions: Strep Throat, DI for Strep Throat Additional Instructions: Drink plenty of fluids. Take tylenol or ibuprofen for pain or fever. Take the medications as directed. Follow up with your regular doctor. GO TO THE ER FOR ANY WORSENING SYMPTOMS Prescriptions: Amoxicillin [Amoxicillin 500mg Tab] 500 mg PO TID 10 Days #30 tab Transmission Status: Received by [facility] Referrals: Lino Haywood MD [Primary Care Provider] - Forms: Work/School Release Time of Disposition: 18:07 Medical Decision Making - Medical Records Medical records reviewed: No: I reviewed the patient's medical records. - Tal Inquiry Pt receiving controlled substance: No Vital Signs: 08/19/19 17:49 08/19/19 18:17 Temperature 98.3 F 98.3 F Temperature Source Oral Pulse Rate 97 H Pulse Rate [Right Brachial] 97 H Respiratory Rate 20 20 Blood Pressure 115/80 Blood Pressure [Right Arm] 115/80 Blood Pressure Mean [Right Arm] 91 Blood Pressure Source [Right Arm] Automatic Cuff Blood Pressure Position [Right Arm] Sitting 02 Sat by Pulse Oximetry 100 Oxygen Delivery Method Room Air - Lab Data Lab results reviewed: Yes: I reviewed the patient's lab results. Lab Results 08/19/19 17:50: Strep Scn Rapid Clinic Positive A Orders (Tests/Meds): ED MEDICATIONS Discontinued Medications Generic Name Dose Route Start Last Admin Trade Name Norm PRN Reason Stop Dose Admin Amoxicillin 500 mg 08/19/19 18:07 08/19/19 18:15 Amoxicillin 500mg Capsule PO 08/19/19 18:08 500 mg ONCE ONE Administration Protocol [facility] [place] HPI - General Stated complaint: Vomiting, sore throat Time Seen by Provider: 08/19/19 17:55 Mode of Arrival: Ambulatory Source of Information: Patient Limitations: No Limitations Description of Symptoms (Recalled from Triage Doc. by RN): PATIENT C/O VOMITING AND SORE THROAT X 3 DAYS HEENT Symptoms (Recalled from RN notes): Yes Resp Symptoms (Recalled from RN notes): No Skin Symptoms (Recalled from RN notes): No MS Symptoms (Recalled from RN notes): No Functional Status (Recalled from RN notes): WNL - History of Present Illness Provider Complaint: She c/o sore throat and vomiting. Her symptoms began 3 days ago. - Related Data Previous Rx's Medication Instructions Recorded Amoxicillin [Amoxicillin 500mg Tab] 500 mg PO TID 10 Days #30 tab 08/19/19 Allergies Allergy/AdvReac Type Severity Reaction Status Date / Time No Known Allergies Allergy Verified 08/03/19 11:17 - Worker's Comp Is this a Worker's Comp case?: No H History - Hepatitis A Screen Drug use history?: No High risk sexual behaviors?: No History of sexually transmitted infection?: No Currently employed?: No Childcare worker?: No Do you have indoor plumbing?: Yes Do you have electricity?: Yes Attestation statement:: This patient has been screened for Hepatitis A risk factors. I have reviewed the patient's past medical history: Yes Medical History: Reports:: Anxiety, Hypertension Other Medical History: Reports: Other Comment: HYPERTENSION W/ Laterality Cases: Bilateral: Tonsillectomy Other Surgeries: Yes: , Other Amputation: No Fractures: No Comment: T&A as child. P* C/S--09/18/2017 - Social History Smoking Status: Current every day smoker Tobacco Type: cigarettes # Packs/Day (cigarettes): 1 Alcohol Intake: never Alcohol Intake Frequency:: holidays/special occasions only Substance Use Type: denies use Occupational Status: other Housing: house Household Members: family - Psychiatric History Pschychiatric History:: Reports:: Anxiety Family Hx:: Hypertension, Diabetes ROS Obtained: Yes All systems reviewed & no additional complaints - Constitutional Constitutional: Reports chills, Denies fever(s), Reports poor appetite, Reports mal
[2019-08-19 18:08] LABS: UTC Strep Screen (Rapid) Positive (Negative)
[2019-08-19 18:17] VITALS: BP 115/80; PULSE 97; RESP 20; TEMP 36.8; O2SAT 100
== END 2019-08-19 18:19 | disposition home or self-care (01) ==
PROVIDERS: Emergency Provider Nurse Practitioner Family; PCP Emergency Medicine
DX: J02.0 Streptococcal pharyngitis (principal)
CPT/HCPCS: 87880; 99201

== ENCOUNTER 2019-11-08 18:24 | Emergency (ER) | payer OTHER, SELFPAY ==
[2019-11-08 18:40] VITALS: BP 138/98; PULSE 112; RESP 16; TEMP 36.9; O2SAT 99; BMI 18.8
--- NOTE | 2019-11-08 18:55 | HMH.EDGENADL ---
ED Disposition Clinical Impression: First trimester bleeding Disposition: Home, Self-Care Condition on Discharge: Good Additional Instructions: Your hormone level (HCG) was 19. Follow up with your [employer] for repeat in 48 hours. Referrals: Lino Haywood MD [Primary Care Provider] - - Critical Care Critical Care Time: No Attestation: On 11/08/19, the high probability of a clinically significant, sudden or life threatening deterioration of the following system(s) required my full and direct attention, intervention and personal management. The time I documented below is in addition to time spent performing reported procedures but includes the following listed in this critical care notation. Medical Decision Making - Tal Inquiry Pt receiving controlled substance: No Vital Signs: 11/08/19 18:40 Temperature 98.4 F Temperature Source Oral Pulse Rate [Right Radial] 112 H Respiratory Rate 16 Blood Pressure [Right Arm] 138/98 H Blood Pressure Mean [Right Arm] 111 Blood Pressure Source [Right Arm] Automatic Cuff Blood Pressure Position [Right Arm] Sitting 02 Sat by Pulse Oximetry 99 Oxygen Delivery Method Room Air - Lab Data Lab Results 11/08/19 18:52: HCG, Quant 19 H 11/08/19 18:52: Blood Type O Positive 11/08/19 19:00: Urine Color Yellow, Urine Appearance Clear, Urine pH 7.0, Ur Specific [place] <= 1.005, Urine Protein Negative, Urine Glucose (UA) Negative, Urine Ketones Negative, Urine Blood 1+, Urine Nitrate Negative, Urine Bilirubin Negative, Urine Urobilinogen 0.2, Ur Leukocyte Esterase Negative, Urine RBC 3-5, Urine WBC 3-5, Ur Squamous Epith Cells 5-10 11/08/19 19:00: Urine HCG, Qual Negative Medical Decision Narrative: Patient is a 24 year old female who is approximately 2-3 weeks who presents with vaginal bleeding. VS stable. Well appearing. Abdomen is benign. Notes small amount of bleeding. Differential includes first trimester bleeding / implantation, ectopic pregancy, threatened . UA unremarkable. HCG ordered as well as ABO/Rh to evaluate for need for rhogam. HCG was 19. US not warranted at this time. Will discharge with follow up with OB in 48 hours. General Adult HPI - General Stated complaint: Postive Preg test, spotting Time Seen by Provider: 11/08/19 18:24 - History of Present Illness HPI narrative: The patient is a 24 year old female who presents with vaginal bleeding. Patient states she is about 2 weeks . She took a positive test this weekend. She is now having a small amount of spotting. Denies any abdominal pain. No dysuria. No fevers, nausea, vomiting. This is her 7th . She has had 3 miscarriages, the last one one month ago. She has an established [employer]. - Related Data Home Medications Medication Instructions Recorded Confirmed No Known Home Medications 10/14/19 10/14/19 Allergies Allergy/AdvReac Type Severity Reaction Status Date / Time No Known Allergies Allergy Verified 10/14/19 09:50 [facility] History - Hepatitis A Screen Attestation statement:: This patient has been screened for Hepatitis A risk factors. Medical History: Reports:: Anxiety, Hypertension Other Medical History: Reports: Other Comment: HYPERTENSION W/ Laterality Cases: Bilateral: Tonsillectomy Other Surgeries: Yes: , Other Amputation: No Fractures: No Comment: T&A as child. P* C/S--09/18/2017 - Social History Smoking Status: Current every day smoker Tobacco Type: cigarettes # Packs/Day (cigarettes): 1 Alcohol Intake: never Alcohol Intake Frequency:: holidays/special occasions only Substance Use Type: denies use Occupational Status: other Housing: house Household Members: family - Psychiatric History Pschychiatric History:: Reports:: Anxiety Family Hx:: Hypertension, Diabetes ROS Obtained: Yes All systems reviewed & no additional complaints Physical Exam - General General appearance: alert, in no ap
[2019-11-08 19:04] LABS: Microscopic, Urine URINE MICROSCOPIC (MICROSCOPIC)
[2019-11-08 19:06] LABS: Appearance,Urine CLEAR (Clear); Bilirubin,Urine Negative (Negative); Blood, Urine 1+ (Negative); Color,Urine YELLOW (Yellow); Glucose,Urine (UA) Negative (Negative); Ketones,Urine Negative (Negative); Leukocyte Esterase,Urine Negative (Negative); Nitrate,Urine Negative (Negative); Protein,Urine Negative (Negative); Specific Gravity, Urine <= 1.005 (1.005-1.030); Urobilinogen,Urine 0.2 EU/dl (0.2)
[2019-11-08 19:07] LABS: Urine Pregnancy, HCG Qual. Negative (Negative)
[2019-11-08 19:39] LABS: HCG,Quantitative 19 mIU/ml (0-5.42)
[2019-11-08 19:55] VITALS: BP 128/74; PULSE 71; RESP 18; TEMP 36.8; O2SAT 98
== END 2019-11-08 19:59 | disposition home or self-care (01) ==
PROVIDERS: Emergency Provider Emergency Medicine; PCP Emergency Medicine
DX: O20.9 Hemorrhage in early pregnancy, unspecified (principal); I10 Essential (primary) hypertension; F41.9 Anxiety disorder, unspecified; F17.210 Nicotine dependence, cigarettes, uncomplicated
CPT/HCPCS: 81001; 81025; 84702; 86900; 86901; 99282

== ENCOUNTER → 2019-11-11 12:04 | Outpatient (CLI) | payer OTHER, SELFPAY ==
[2019-11-11 15:17] LABS: HCG,Quantitative 3 mIU/ml (0-5.42)
== END ==
PROVIDERS: Visit Provider Nurse Practitioner Obstetrics & Gynecology
DX: Z34.90 Encounter for supervision of normal pregnancy, unspecified, unspecified trimester (principal)
CPT/HCPCS: 36415; 84702

== ENCOUNTER 2020-05-11 19:38 | Emergency (ER) | payer OTHER, SELFPAY ==
[2020-05-11 20:09] VITALS: BP 113/70; PULSE 88; RESP 17; TEMP 36.8; O2SAT 100; BMI 15.0
--- NOTE | 2020-05-11 20:32 | HMH.EDUTC ---
[facility] [place] Disposition Clinical Impression: Exposure to COVID-19 virus Disposition: Home, Self-Care Condition on Discharge: Good Instructions: Preventing the Spread of Coronavirus Discharge Instructions Additional Instructions: Drink plenty of fluids. Take tylenol for pain or fever. Return if you begin to have difficulty breathing. Follow up with your regular doctor. GO TO THE ER FOR ANY WORSENING SYMPTOMS Referrals: Jocelyn Rueda APRN [Primary Care Provider] - Time of Disposition: 20:32 Medical Decision Making - Medical Records Medical records reviewed: No: I reviewed the patient's medical records. - Tal Inquiry Pt receiving controlled substance: No Vital Signs: 05/11/20 20:09 Temperature 98.2 F Temperature Source Oral Pulse Rate [Left] 88 Respiratory Rate 17 Blood Pressure [Right Arm] 113/70 Blood Pressure Mean [Right Arm] 84 02 Sat by Pulse Oximetry 100 Oxygen Delivery Method Room Air Orders (Tests/Meds): ORDERS Category Date Time Status Covid-19 Nasal PCR ([facility]) Routine Lab 05/11/20 20:00 Received [facility] HPI - General Stated complaint: COVID TEST Time Seen by Provider: 05/11/20 20:32 - History of Present Illness Provider Complaint: He is here to be tested for covid-19. He was exposed by a family member 3 days ago. He denies any symptoms so far. - Related Data Home Medications Medication Instructions Recorded Confirmed ferrous sulfate 27 mg iron tablet 27 mg PO DAILY 11/14/19 05/11/20 Levonorgestrel/Ethin.estradiol 1 tab PO DAILY 05/11/20 05/11/20 [Orsythia-28 Tablet] Allergies Allergy/AdvReac Type Severity Reaction Status Date / Time No Known Allergies Allergy Verified 11/14/19 09:25 [facility] History - Hepatitis A Screen Attestation statement:: This patient has been screened for Hepatitis A risk factors. I have reviewed the patient's past medical history: Yes Medical History: Reports:: Anxiety, Hypertension Other Medical History: Reports: Other Comment: HYPERTENSION W/ Laterality Cases: Bilateral: Tonsillectomy Other Surgeries: Yes: , Other Amputation: No Fractures: No Comment: T&A as child. P* C/S--09/18/2017 - Social History Smoking Status: Current every day smoker Tobacco Type: cigarettes # Packs/Day (cigarettes): 1 Alcohol Intake: never Alcohol Intake Frequency:: holidays/special occasions only Substance Use Type: denies use Occupational Status: other Housing: house Household Members: family - Psychiatric History Pschychiatric History:: Reports:: Anxiety Family Hx:: Hypertension, Diabetes ROS Obtained: Yes All systems reviewed & no additional complaints - Constitutional Constitutional: Reports system reviewed and no additional complaints, except as docu - Eyes Eyes: Reports system reviewed and no additional complaints, except as docu - ENT Ears, Nose, Mouth, and Throat: Reports system reviewed and no additional complaints, except as docu - Cardiovascular Cardiovascular: Reports system reviewed and no additional complaints, except as docu - Respiratory Respiratory: Reports system reviewed and no additional complaints, except as docu - Gastrointestinal Gastrointestingal: Reports: system reviewed and no additional complaints, except as docu Physical Exam - General General appearance: alert, in no apparent distress - Head Head exam: atraumatic, normocephalic, normal inspection - Eye Eye exam: Present: normal appearance, PERRL, EOMI - ENT ENT exam: Present: normal exam, normal oropharynx, mucous membranes moist, TM's normal bilaterally, normal external ear exam - Neck Neck exam: Present: normal inspection, full ROM, trachea midline. Absent: meningismus, lymphadenopathy - Chest Chest inspection: Present: normal inspection, symmetric chest wall rise. Absent: tenderness - Respiratory Respiratory exam: Present: normal lung sounds bilaterally. Absent: respiratory distress - Cardiova
[2020-05-11 20:55] VITALS: BP 116/74; PULSE 87; RESP 16; TEMP 36.8; O2SAT 100
== END 2020-05-11 21:00 | disposition home or self-care (01) ==
PROVIDERS: Emergency Provider Nurse Practitioner Family; PCP Nurse Practitioner
DX: Z20.822 Contact with and (suspected) exposure to COVID-19 (principal); I10 Essential (primary) hypertension; F41.9 Anxiety disorder, unspecified; F17.210 Nicotine dependence, cigarettes, uncomplicated
CPT/HCPCS: 99202; G0463; U0003

== ENCOUNTER → 2020-06-22 12:38 | Outpatient (CLI) | payer OTHER, SELFPAY ==
--- NOTE | 2020-06-22 12:43 | US_ITS ---
PROCEDURE: US GALLBLADDER CLINICAL INDICATION: ABD PAIN COMPARISON: No exams were available for comparison FINDINGS: Pancreas: Unremarkable/Not well seen Liver: Unremarkable. There is appropriate direction of blood flow within a non dilated portal vein. Right kidney: Unremarkable appearing. No hydronephrosis. Gallbladder: Numerous gallstones are present. No gallbladder wall thickening or pericholecystic fluid. Common bile duct is normal at 3 mm. The gallstones measure up to 1 cm IMPRESSION: Numerous gallstones. No gallbladder wall thickening, pericholecystic fluid, or biliary dilatation. Dictated by: Kishore Greene MD 06/22/2020 14:04 Kishore Greene MD in [place] 06/22/2020 14:04
== END ==
PROVIDERS: PCP Nurse Practitioner; Visit Provider Nurse Practitioner
DX: R10.9 Unspecified abdominal pain (principal)
CPT/HCPCS: 76705

== ENCOUNTER → 2020-07-03 13:04 | Outpatient (CLI) | payer OTHER, SELFPAY ==
[2020-07-03 14:44] LABS: HCG,Quantitative 156 mIU/ml (0-5.42)
== END ==
PROVIDERS: Visit Provider Nurse Practitioner Obstetrics & Gynecology
DX: Z34.90 Encounter for supervision of normal pregnancy, unspecified, unspecified trimester (principal)
CPT/HCPCS: 36415; 84702

== ENCOUNTER → 2020-07-06 08:55 | Outpatient (CLI) | payer OTHER, SELFPAY ==
[2020-07-06 09:06] LABS: Urine Pregnancy, HCG Qual. Positive (Negative)
[2020-07-06 14:31] LABS: HCG,Quantitative 658 mIU/ml (0-5.42)
== END ==
PROVIDERS: Surgery; Visit Provider Nurse Practitioner Obstetrics & Gynecology
DX: Z34.90 Encounter for supervision of normal pregnancy, unspecified, unspecified trimester (principal); K80.20 Calculus of gallbladder without cholecystitis without obstruction
CPT/HCPCS: 36415; 81025; 84702

== ENCOUNTER → 2020-07-20 14:14 | Outpatient (CLI) | payer OTHER, SELFPAY ==
--- NOTE | 2020-07-20 14:14 | US_ITS ---
PROCEDURE: US OB <= 14 WEEKS FETUS CLINICAL INDICATION: US OB for DATES-Before 14 wks COMPARISON: US US OB TRANSVAGINAL from 04/22/2019 FINDINGS: An intrauterine gestational sac is present with a pole with a crown-rump length of 0.38cm correlating to gestational age of 6weeks 1day. heart tones are present with an FHR of 119bpm. Yolk sac is noted. There is a left ovarian cyst which measures 3 cm. This appears to represent a simple cyst. No cul-de-sac fluid apparent. IMPRESSION: Live IUP at 6 weeks 1 day. Estimated due date by Ultrasound is 03/14/2021 3 cm simple appearing left ovarian cyst Dictated by: Kishore Greene MD 07/20/2020 15:53 Kishore Greene MD in [facility] 07/20/2020 15:53
== END ==
PROVIDERS: PCP Nurse Practitioner; Visit Provider Nurse Practitioner Obstetrics & Gynecology
DX: O26.841 Uterine size-date discrepancy, first trimester (principal)
CPT/HCPCS: 76801

== ENCOUNTER → 2020-08-22 12:22 | Outpatient (CLI) | payer OTHER, SELFPAY ==
[2020-08-22 12:52] LABS: Basophils % 0.4 % (0.1-2.0); Eosinophils # 0.1 K/mm3 (0.0-0.4); Eosinophils % 0.8 % (0.1-12.0); Hematocrit 37.3 % (37.0-47.0); Lymphocytes # 2.2 K/mm3 (0.7-4.5); Lymphocytes % 24.2 % (10-50); Mean Corpuscular HGB Conc 34.7 g/dL (31.8-35.4); Mean Corpuscular Hemoglobin 31.2 pg (27.0-31.2); Mean Corpuscular Volume 89.7 fl (81-99); Mean Platelet Volume 7.8 fl (7.4-10.4); Monocytes # 0.2 K/mm3 (0.1-1.0); Monocytes % 2.6 % (1.7-9.3); Neutrophils # 6.4 K/mm3 (1.8-7.8); Platelet Count 256 K/mm3 (142-424); Red Blood Count 4.16 M/mm3 (4.20-5.40); Red Cell Distribution Width 13.4 % (11.5-17.5); White Blood Count 8.9 K/mm3 (4.8-10.8)
[2020-08-23 05:30] LABS: HIV Screen 4th Generation wRfx Non Reactive (Non Reactive)
[2020-08-23 10:25] LABS: Hepatitis B Surface Antigen Negative (Negative); Hepatitis C Antibody <0.1 s/co ratio (0.0-0.9); Rubella Antibodies, IgG <0.90 index (Immune >0.99)
[2020-08-23 13:31] LABS: Rapid Plasma Reagin Ab Titer Non Reactive (NonRea<1:1)
== END ==
PROVIDERS: Visit Provider Nurse Practitioner Obstetrics & Gynecology
DX: Z34.91 Encounter for supervision of normal pregnancy, unspecified, first trimester (principal)
CPT/HCPCS: 36415; 85025; 86592; 86703; 86762; 86850; 87340; 87380; G0432

== ENCOUNTER → 2020-09-24 14:55 | Outpatient (CLI) | payer OTHER, SELFPAY | PROVIDERS: Visit Provider Nurse Practitioner Obstetrics & Gynecology | DX: O28.3 Abnormal ultrasonic finding on antenatal screening of mother (principal); Z36.0 Encounter for antenatal screening for chromosomal anomalies; Z31.430 Encounter of female for testing for genetic disease carrier status for procreative management | CPT/HCPCS: 36415 ==

== ENCOUNTER 2020-10-12 18:46 | Emergency (ER) | payer OTHER, SELFPAY ==
[2020-10-12 18:48] VITALS: BP 135/85; PULSE 107; RESP 16; TEMP 37; O2SAT 98; BMI 21.7
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
[2020-10-12 20:42] VITALS: BP 112/75; PULSE 80; RESP 16; TEMP 36.8; O2SAT 98
== END 2020-10-12 20:44 | disposition home or self-care (01) ==
PROVIDERS: Emergency Provider Emergency Medicine; PCP Nurse Practitioner
DX: S00.83XA Contusion of other part of head, initial encounter (principal); Z3A.18 18 weeks gestation of pregnancy; V43.52XA Car driver injured in collision with other type car in traffic accident, initial encounter; Y92.488 Other paved roadways as the place of occurrence of the external cause
CPT/HCPCS: 99281

== ENCOUNTER → 2020-11-08 13:01 | Outpatient (CLI) | payer OTHER, SELFPAY ==
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
== END ==
PROVIDERS: PCP Nurse Practitioner; Visit Provider Nurse Practitioner
DX: R51.9 Headache, unspecified (principal)
CPT/HCPCS: 70450

== ENCOUNTER 2020-11-15 08:00 | Outpatient (RCR) | payer OTHER, SELFPAY | END 2020-12-12 11:51 | disposition home or self-care (01) | LOC: PT.CARL 08:00 | PROVIDERS: PCP Nurse Practitioner; Visit Provider Nurse Practitioner | DX: M54.2 Cervicalgia (principal) | CPT/HCPCS: 20560; 97010; 97110; 97140; 97163 ==

== ENCOUNTER → 2020-12-24 08:07 | Outpatient (CLI) | payer OTHER, SELFPAY ==
[2020-12-24 08:39] LABS: Glucose,Fasting 85 mg/dl (74-100)
[2020-12-24 10:45] LABS: Glucose 1 Hour 113 mg/dL (74-100)
== END ==
PROVIDERS: Visit Provider Nurse Practitioner Obstetrics & Gynecology
DX: Z34.90 Encounter for supervision of normal pregnancy, unspecified, unspecified trimester (principal)
CPT/HCPCS: 36415; 82951

== ENCOUNTER → 2021-02-06 17:01 | Outpatient (CLI) | payer OTHER, SELFPAY | PROVIDERS: Visit Provider Nurse Practitioner Obstetrics & Gynecology | DX: Z34.90 Encounter for supervision of normal pregnancy, unspecified, unspecified trimester (principal) | CPT/HCPCS: 86403 ==

== ENCOUNTER 2021-02-11 09:52 | Outpatient (CLI) | payer OTHER, SELFPAY ==
--- NOTE | 2021-02-11 09:52 | US_ITS ---
PROCEDURE: US OB BIOPHYSICAL PROFILE CLINICAL INDICATION: SGA TECHNIQUE: FINDINGS: The following parameters are obtained: There is a single live fetus in cephalic presentation. The cervix is closed measuring 4-5 cm. This is transabdominal. The placenta is posterior and fundal and 3. Average ultrasound age is Average 33weeks 4days Estimated due date by ultrasound is 03/28/2021. Estimated weight is 2,175g. This is 6 percentile. BPD: 32weeks OFD: 32weeks HC: 33 weeks 0 days AC: 33 weeks 2 days FL: 33 weeks 3 days heart rate: 185bpm bpm. HC/AC: 1.02 Cephalic index: 0.83 FL/BPD: 0.75 FL/AC: 0.22 Amniotic fluid index: 6.33cm Qualitative AFV: 2 breathing movements: 2 Gross body movements: 2 Tone: 2 Biophysical profile score: 8 IMPRESSION: Live IUP in cephalic presentation with an average ultrasound age of 33 weeks and 4 days and an estimated weight 2175 g which is 6 percentile indicating intrauterine growth restriction. ELSA is at the lower limits of normal at 6 cm. Posterior and fundal grade 3 placenta Dictated by: Kishore Greene MD 02/11/2021 15:09 Kishore Greene MD in [facility] 02/11/2021 15:09
[2021-02-11 11:07] VITALS: BMI 24.6
[2021-02-11 11:24] VITALS: BP 130/86; PULSE 86; RESP 16; TEMP 36.8; O2SAT 99; BMI 24.5
[2021-02-11 11:39] LABS: Microscopic, Urine URINE MICROSCOPIC (MICROSCOPIC)
[2021-02-11 11:42] LABS: Appearance,Urine CLEAR (Clear); Bilirubin,Urine Negative (Negative); Blood, Urine Negative (Negative); Color,Urine YELLOW (Yellow); Glucose,Urine (UA) Negative (Negative); Ketones,Urine Negative (Negative); Leukocyte Esterase,Urine 1+ (Negative); Nitrate,Urine Negative (Negative); PH,Urine 7.5 (5.0-8.5); Protein,Urine Negative (Negative); Specific Gravity, Urine <= 1.005 (1.005-1.030); Urobilinogen,Urine 0.2 EU/dl (0.2)
[2021-02-11 11:54] LABS: Bacteria,Urine Trace /lpf; Barbiturates Screen,Urine Negative ng/ml (<200); Benzodiazepines Screen,Urine Negative ng/ml (<200); Mucus,Urine Trace /lpf
[2021-02-11 11:55] LABS: Amphetamine/Metha Screen,Urine Negative ng/ml (<1000)
[2021-02-11 11:56] LABS: Cocaine Screen,Urine Negative ng/ml (<300); Methadone Screen,Urine Negative ng/ml (<300)
[2021-02-11 11:57] LABS: Cannabinoid Screen,Urine Negative ng/ml (<50); Opiate Screen,Urine Negative ng/ml (<300)
[2021-02-11 11:58] LABS: Phencyclidine Screen,Urine Negative ng/ml (<25)
== END 2021-02-11 12:10 | disposition home or self-care (01) ==
LOC: RAD 09:52 → OBOUT 10:33 → OB 10:34
PROVIDERS: PCP Nurse Practitioner; Visit Provider Nurse Practitioner Obstetrics & Gynecology
DX: O36.5990 Maternal care for other known or suspected poor fetal growth, unspecified trimester, not applicable or unspecified (principal); O36.8390 Maternal care for abnormalities of the fetal heart rate or rhythm, unspecified trimester, not applicable or unspecified; Z3A.35 35 weeks gestation of pregnancy
CPT/HCPCS: 59025; 76816; 76819; 80305; 81001; 87086; 96365; G0463

== ENCOUNTER 2021-03-09 14:31 | Outpatient (CLI) | payer OTHER, SELFPAY ==
[2021-03-09 14:44] VITALS: BMI 24.5
[2021-03-09 14:52] LABS: Microscopic, Urine URINE MICROSCOPIC (MICROSCOPIC)
[2021-03-09 15:01] LABS: Appearance,Urine CLEAR (Clear); Bilirubin,Urine Negative (Negative); Blood, Urine Negative (Negative); Color,Urine YELLOW (Yellow); Glucose,Urine (UA) Negative (Negative); Ketones,Urine Negative (Negative); Leukocyte Esterase,Urine Negative (Negative); Nitrate,Urine Negative (Negative); PH,Urine 7.5 (5.0-8.5); Protein,Urine Negative (Negative); Specific Gravity, Urine 1.015 (1.005-1.030); Urobilinogen,Urine 0.2 EU/dl (0.2)
[2021-03-09 15:06] LABS: Barbiturates Screen,Urine Negative ng/ml (<200)
[2021-03-09 15:07] LABS: Amphetamine/Metha Screen,Urine Negative ng/ml (<1000); Benzodiazepines Screen,Urine Negative ng/ml (<200)
[2021-03-09 15:08] LABS: Cannabinoid Screen,Urine Negative ng/ml (<50); Cocaine Screen,Urine Negative ng/ml (<300)
[2021-03-09 15:09] VITALS: BP 143/85; PULSE 117; RESP 20; TEMP 37.1; O2SAT 96; BMI 24.5
[2021-03-09 15:09] LABS: Methadone Screen,Urine Negative ng/ml (<300)
[2021-03-09 15:10] LABS: Opiate Screen,Urine Negative ng/ml (<300); Phencyclidine Screen,Urine Negative ng/ml (<25)
[2021-03-09 15:12] LABS: RBC,Urine Occasional #/hpf (0-3); WBC,Urine Occasional #/hpf (0-3)
[2021-03-09 15:13] LABS: Squamous Epithelial Cell,Urine Occasional #/hpf (0-5)
[2021-03-09 15:18] LABS: Fetal Membrane Rupture (Rapid) Negative (Negative)
[2021-03-09 15:36] LABS: Coronavirus 19, PCR Not Detected (NotDetected); Influenza A, PCR Not Detected (NotDetected); Influenza B, PCR Not Detected (NotDetected)
[2021-03-09 15:42] LABS: Basophils # 0.1 K/mm3 (0-0.2); Basophils % 0.6 % (0.1-2.0); Eosinophils # 0.1 K/mm3 (0.0-0.4); Eosinophils % 0.8 % (0.1-12.0); Hematocrit 37.8 % (37.0-47.0); Hemoglobin 12.6 g/dL (12.2-16.2); Lymphocytes # 2.2 K/mm3 (0.7-4.5); Lymphocytes % 13.3 % (10-50); Mean Corpuscular HGB Conc 33.4 g/dL (31.8-35.4); Mean Corpuscular Hemoglobin 32.9 pg (27.0-31.2); Mean Corpuscular Volume 98.5 fl (81-99); Monocytes # 0.7 K/mm3 (0.1-1.0); Monocytes % 4.2 % (1.7-9.3); Neutrophils # 13.6 K/mm3 (1.8-7.8); Neutrophils % 81.1 % (37.0-80.0); Platelet Count 294 K/mm3 (142-424); Red Blood Count 3.84 M/mm3 (4.20-5.40); Red Cell Distribution Width 13.6 % (11.5-17.5); White Blood Count 16.8 K/mm3 (4.8-10.8)
[2021-03-09 15:45] LABS: MANUAL DIFFERENTIAL MANUAL DIFFERENTIAL (MANUAL DIFF)
[2021-03-09 16:02] LABS: Chloride 107 mmol/L (98-107); Potassium 3.5 mmoL/L (3.5-5.1); Sodium 136 mmol/L (136-145)
[2021-03-09 16:04] LABS: Alanine Aminotransferase 9 U/L (12-78); Aspartate Amino Transferase 19 U/L (14-36); Blood Urea Nitrogen 3 mg/dl (7-17); Creatinine Clearance Estimated 198 mL/min (50-200); Estimated Glomerular Filt Rate 193 ml/min (>60); GFR (African American) 233 ML/MIN (>60)
[2021-03-09 16:05] LABS: Albumin Level 3.9 g/dl (3.5-5.0); Albumin/Globulin Ratio 1.3 (1.1-1.8); Alkaline Phosphatase 144 U/L (38-126); Anion Gap 11.5 mEq/L (5-15); Bilirubin,Total 0.4 mg/dl (0.2-1.3); Calcium 9.2 mg/dl (8.4-10.2); Carbon Dioxide 21 mmol/L (22.0-30.0); Glucose 75 mg/dl (74-100); Total Protein,Serum 6.9 g/dl (6.3-8.2)
[2021-03-09 16:56] LABS: Anisocytosis 1+; Hypochromasia 1+; Lymphocytes % 14 % (10-50); Microcytosis 1+; Monocytes % 7 % (2-9); Neutrophils % 79 % (42-76); Platelet Estimate Normal; Total Cells Counted 100
== END 2021-03-09 15:42 | disposition home or self-care (01) ==
LOC: OBOUT 14:33 → OB 14:33
PROVIDERS: PCP Nurse Practitioner; Visit Provider Obstetrics & Gynecology
DX: Z34.90 Encounter for supervision of normal pregnancy, unspecified, unspecified trimester (principal)
CPT/HCPCS: 36415; 59025; 80053; 80305; 81001; 84112; 85007; 85025; C9803; G0463; U0003; U0005

== ENCOUNTER 2021-03-11 04:56 | Inpatient (IN) | payer OTHER, SELFPAY ==
[2021-03-11] VITALS (8 sets, daily range): BP systolic 96–116; BP diastolic 51–76; PULSE 71–106; RESP 12–20; TEMP 36.6–36.9; O2SAT 99–100; BMI 25.1
[2021-03-11 05:58] LABS: Microscopic, Urine URINE MICROSCOPIC (MICROSCOPIC)
[2021-03-11 05:58] LABS: Coronavirus 19, PCR Not Detected (NotDetected); Influenza A, PCR Not Detected (NotDetected); Influenza B, PCR Not Detected (NotDetected)
[2021-03-11 06:07] LABS: Appearance,Urine CLEAR (Clear); Bilirubin,Urine Negative (Negative); Blood, Urine Negative (Negative); Color,Urine YELLOW (Yellow); Glucose,Urine (UA) Negative (Negative); Ketones,Urine Negative (Negative); Leukocyte Esterase,Urine TRACE (Negative); Nitrate,Urine Negative (Negative); PH,Urine 7.5 (5.0-8.5); Protein,Urine Negative (Negative); Specific Gravity, Urine 1.015 (1.005-1.030); Urobilinogen,Urine 0.2 EU/dl (0.2)
--- NOTE | 2021-03-11 07:12 | HMH.ANESCL ---
[facility] Anesthesia Checklist - Patient Identification Patient Identification: Arm Band - Structural Data Admitted From: Inpatient Planned Operative Procedure/s: C/S Consent for Planned Operative Procedure(s) Verified: Yes - NPO Status Verified Time NPO: 00:00 - Additional verifications Anesthesia Reactions: No - Airway Assessment C-Spine Mobility Assessed: Yes TMJ Mobility Assessed: Yes Dentition: Good Dentition - Neurological Assessment Level of Consciousness: Awake Hx Seizures: No Numbness or tingling in extremities: No - Anesthesia Plan Anesthesia Risk discussed: Yes Anesthesia Plan: Verified ASA Class: II Anesthesia Type: Spinal [facility] History I have reviewed the patient's past medical history: Yes Medical History: Reports:: Anxiety, Hypertension (Hx of preeclampsia) *Have you ever received a pneumonia vaccine?: No *Have you received a flu vaccine this season?: No Other Medical History: Reports: Other Anesthesia experience/problems:: None Laterality Cases: Bilateral: Tonsillectomy Other Surgeries: Yes: , Other Amputation: No Fractures: No - *Social History Smoking Status: Current every day smoker Tobacco Type: cigarettes # Packs/Day (cigarettes): 1 Alcohol Intake: current Alcohol Intake Frequency:: holidays/special occasions only Substance Use Type: denies use *Occupational Status:: unemployed Housing: house Household Members: family *Travel in the last 8 weeks: None - Psychiatric History Pschychiatric History:: Reports:: Anxiety Family Hx:: Hypertension, Diabetes Para: 4
[2021-03-11 07:13] LABS: Barbiturates Screen,Urine Negative ng/ml (<200); Benzodiazepines Screen,Urine Negative ng/ml (<200)
[2021-03-11 07:15] LABS: Cannabinoid Screen,Urine Negative ng/ml (<50); Cocaine Screen,Urine Negative ng/ml (<300)
[2021-03-11 07:16] LABS: Methadone Screen,Urine Negative ng/ml (<300)
[2021-03-11 07:17] LABS: Opiate Screen,Urine Negative ng/ml (<300); Phencyclidine Screen,Urine Negative ng/ml (<25)
[2021-03-11 07:34] LABS: Amphetamine/Metha Screen,Urine Negative ng/ml (<1000)
--- NOTE | 2021-03-11 08:22 | HMH.OPNOTE ---
Date of procedure: 03/11/21 Pre-op Diagnosis:: Term , previous section Post-op Diagnosis:: Term , previous section, possible small placenta accreta Procedure performed:: Repeat lower segment transverse section Surgeon:: Carroll Gaspar MD [employer] Cutter(s):: Jadyn Wells SERVICE UNIT OPERATOR:: Yovana Davila Anesthesia: spinal Estimated blood loss (mL): 600 Clinical Note:: She is a 26-year-old 8 para 4 who was 39 weeks gestational age. She has had previous sections and as result of that was offered repeat lower segment transverse section at term. Operative findings:: She delivered a liveborn female child at 7:49 AM on the morning of March 11, 2021. The baby had Apgars of 8 at 1 minute and 9 at 5 minutes. There was a loose nuchal cord. Ovaries and tubes appeared normal. When we removed the placenta it came out in 2 pieces and seemed to be adherent to the posterior uterine wall. It required me to put a couple of stitches in the muscle of the uterus posteriorly for hemostasis. Operative note:: She was taken to the operating room where spinal anesthesia was found be adequate. She was prepped and draped in normal sterile fashion in the supine position with a leftward tilt. A Trent catheter was in the bladder. A Pfannenstiel skin incision was made with knife then carried through to the underlying layer of fascia with cautery. The fascia was opened in the midline with cautery and extended laterally using Burdick scissors. Mis clamps were applied to the superior aspect of the fascial incision which was tented up and the underlying rectus muscles dissected off using cautery. The Mis clamps were then applied to the inferior aspect of the fascial incision which in a similar fashion was tented up and the underlying rectus muscles dissected off using cautery. The rectus muscles were then in the midline, the peritoneum identified, and entered sharply with Metzenbaum scissors. This incision was then extended superiorly and inferiorly with cautery. We had good visualization of the bladder inferiorly. The bladder peritoneum was then opened in the midline and extended laterally using Metzenbaum scissors. A bladder flap was created digitally. Transverse incision was made through the uterine muscle to the amnion. This incision was then extended laterally using fingers traction. The amnion was entered sharply with knife. There was clear amniotic fluid. The infant's head was then delivered atraumatically. A loose nuchal cord was then reduced. This was followed by the anterior shoulder and the rest of the 's body atraumatically. The oropharynx and nasopharynx were bulb suctioned. The baby was vigorous so we allowed the cord to continue to pulsate for approximately 1 minute. The was then handed off to Dr. Campoverde who assigned Apgars of 8. At 1 minute and 9 at 5 minutes. We then obtained cord blood. Using gentle traction on the cord and countertraction on the fundus I was able to easily deliver the placenta. It came out in 2 pieces. There was some bleeding on the posterior it had a normal three-vessel cord. The uterus was then cleared of clots and debris . Wall of the uterus and some active bleeding. I elected to place a few sutures here. I was careful not to go through and through the muscle of the uterus. The uterine incision was then closed using running 0 Vicryl suture in a locked fashion. A second layer of the same suture was used to imbricate the first layer. The bladder peritoneum was then closed using running 2-0 Vicryl suture in a locked fashion. The gutters and cul-de-sac were then cleared of clots and debris . Once again hemostasis was assured. The uterus was then returned to the abdominal cavity. The peritoneum was grasped with Shakira clamps and closed using running 2-0 Vicryl suture. The rectus muscles were then reapproximated using running 0 Vicryl suture. The fascia
--- NOTE | 2021-03-11 08:29 | P.PN_ITS ---
[facility] Anesthesia Record Part I Intake, IV Amount: 1,000 Estimated blood loss (mL): 600 Urine output (mL): 400 Blood Pressure: 107/58 SaO2: 99 Pulse Rate: 74 Respiratory Rate: 12 Temperature: 97.9 F Patient is:: Awake Stable to PACU at:: 08:26
--- NOTE | 2021-03-11 08:29 | HMH.OBAPHP ---
OB - H&P: HPI Antepartum - History of Present Illness Chief complaint: Term , previous section, smoker History of present illness: She is a 26-year-old 8 para 4 who is 39 weeks gestational age. She is admitted for repeat lower segment transverse section. The risks and benefits of surgery were discussed the patient prior to surgery. - History of Present Criteria for establishing EDC:: LMP confirmed by 1st trimester US care: good care Ultrasounds: normal 1st trimester US, normal mid trimester US Obstetrical complications: none Medical complications: none - Labs Blood type: O (+) positive Rubella: nonimmune RPR/VDRL: nonreactive GBS status: negative HBsAG: negative [facility] History I have reviewed the patient's past medical history: Yes Medical History: Reports:: Anxiety, Hypertension (Hx of preeclampsia) Denies:: Seizures *Have you ever received a pneumonia vaccine?: No *Have you received a flu vaccine this season?: No Other Medical History: Reports: Other Anesthesia experience/problems:: None Laterality Cases: Bilateral: Tonsillectomy Other Surgeries: Yes: , Other Amputation: No Fractures: No - *Social History Smoking Status: Current every day smoker Tobacco Type: cigarettes # Packs/Day (cigarettes): 1 Alcohol Intake: current Alcohol Intake Frequency:: holidays/special occasions only Substance Use Type: denies use *Occupational Status:: unemployed Housing: house Household Members: family *Travel in the last 8 weeks: None - Psychiatric History Pschychiatric History:: Reports:: Anxiety Family Hx:: Hypertension, Diabetes Para: 4 Review of Systems - Review of Systems Review of systems:: pertinent systems reviewed and negative unless documented below Meds Home Medications Medication Instructions Recorded Confirmed Type prenat.vits,meliton,pvj-xwff-fxedl 1 tab PO DAILY 08/27/20 03/11/21 History Ferrous Sulfate 325 mg PO DAILY 02/11/21 03/11/21 History Allergies Allergy/AdvReac Type Severity Reaction Status Date / Time sulfamethoxazole Allergy Unknown Verified 03/07/21 09:04 [From Bactrim] trimethoprim [From Bactrim] Allergy Unknown Verified 03/07/21 09:04 OB - H&P: Exam - Physical Exam Vital signs: Temp Pulse Resp BP Pulse Ox 98.5 F 106 H 20 116/76 99 03/11/21 06:21 03/11/21 06:21 03/11/21 06:21 03/11/21 06:21 03/11/21 06:21 - Constitutional no acute distress - Routine HEENT Exam Head: Present: normocephalic Eye: Present: EOMI, PERRL ENT: Present: mucous membranes moist - Routine Neck Exam Present: supple, full ROM - Routine Respiratory Exam Absent: accessory muscle use (good air entry bilaterally), respiratory distress, wheezes, crackles - Routine Cardiovascular Exam Present: RRR. Absent: murmur - Routine Abdominal Exam Present: soft, normoactive bowel sounds. Absent: tenderness, distended, guarding - Routine Rectal Exam Patient deferred: visual exam, digital exam - Routine Exam Patient deferred: external exam, groin exam, perineal exam - Routine Extremities Exam Present: full ROM. Absent: cyanosis, edema - Routine Skin Exam Present: intact. Absent: cyanosis - Routine Neurological Exam Present: alert, oriented X3 - Routine Psychiatric Exam Present: normal affect OB - Results - Labs Labs: Urine 03/11/21 Range/Units 05:05 Urine Color Yellow (Yellow) Urine Appearance Clear (Clear) Urine pH 7.5 (5.0-8.5) Ur Specific [place] 1.015 (1.005-1.030) Urine Protein Negative (Negative) Urine Glucose (UA) Negative (Negative) OB - A/P Antepartum (1) Previous section complicating Status: Acute (2) Delivery by section of full-term infant Status: Acute (3) Rubella nonimmune status, delivered, current hospitalization Status: Acute - Additional Plan Planning to breastfeed?: No Plan: other
--- NOTE | 2021-03-11 09:08 | SUR.PHASEI ---
0855- detailed report called to kerri medrano on OB floor at this time. 0857- pt left in stable condition with kerri medrano at this time.
[2021-03-11 09:14] LABS: Microscopic,Cath URINE MICROSCOPIC (MICROSCOPIC)
[2021-03-11 09:30] LABS: Appearance,Urine/Cath CLEAR (Clear); Bilirubin,Cath Negative (Negative); Blood, Urine/Cath Negative (Negative); Color,Urine/Cath STRAW (Yellow); Glucose,Urine/Cath (UA) Negative (Negative); Ketones,Urine/Cath TRACE (Negative); Leukocyte Esterase,Cath Negative (Negative); Nitrate,Cath Negative (Negative); Protein,Urine/Cath Negative (Negative); Specific Gravity, Urine/Cath <= 1.005 (1.005-1.030); Urobilinogen,Cath 0.2 EU/dl (0.2)
[2021-03-11 09:59] LABS: WBC,Urine/Cath Occasional #/hpf (0-3)
--- NOTE | 2021-03-11 13:06 | HMH.PHAVTE ---
[facility] Pharmacy VTE Monitoring - Patient Demographics Admission date: 03/11/21 Report Date: 03/11/21 Time: 13:06 Allergies/Adverse Reactions: Patient Allergies sulfamethoxazole [From Bactrim] Allergy (Unknown, Verified 03/07/21 09:04) trimethoprim [From Bactrim] Allergy (Unknown, Verified 03/07/21 09:04) Height: 1.55 m Weight: 60.328 kg Patient Problems: Current Active Problems Previous section complicating (Acute) Delivery by section of full-term infant (Acute) Rubella nonimmune status, delivered, current hospitalization (Acute) - VTE Risk Clinical Trial Participant: No - Prophylaxis VTE Prophylaxis Ordered?: Yes Types of VTE Prophylaxis: IPCS Knee High (POST OP)
[2021-03-12] VITALS (7 sets, daily range): BP systolic 108–124; BP diastolic 63–78; PULSE 67–82; RESP 17–18; TEMP 36.5–36.7; O2SAT 98–100
[2021-03-12 07:59] LABS: Hematocrit 32.3 % (37.0-47.0); Hemoglobin 10.4 g/dL (12.2-16.2)
--- NOTE | 2021-03-12 10:43 | HMH.ACPN2 ---
Internal Medicine - PN: Subj *Date: 03/12/21 *Time: 10:43 Interval history: She is doing well this morning. Her pain is much improved with the tap block. She is bottlefeeding. Her lochia is normal. Exam Vital signs and Labs for Last 24 Hours: Temp Pulse Resp BP Pulse Ox 97.7 F 70 17 108/73 L 98 03/12/21 04:21 03/12/21 09:26 03/12/21 04:21 03/12/21 04:21 03/12/21 04:21 Laboratory Results - last 24 hr 03/12/21 07:36: Hgb 10.4 L, Hct 32.3 L I & O for Last 24 hours: Intake & Output 03/09/21 03/10/21 03/11/21 03/12/21 11:59 11:59 11:59 11:59 Intake Total 1000 / 1000 Output Total 400 / 400 1700 / 1700 Balance 600 / 600 -1700 / -1700 Weight 133 lb - Constitutional no acute distress - *Routine HEENT Exam Head: Present: normocephalic Eye: Present: EOMI, PERRL ENT: Present: mucous membranes moist Assessment and Plan (1) Previous section complicating Status: Acute Category: Surgical Code(s): O34.219 - Maternal care for unspecified type scar from previous delivery (2) Delivery by section of full-term infant Status: Acute Category: Medical Code(s): O82 - Encounter for delivery without indication (3) Rubella nonimmune status, delivered, current hospitalization Status: Acute Category: Medical Code(s): O99.892 - Other specified diseases and conditions complicating childbirth; Z28.3 - Underimmunization status - Assessment and plan all Dx Assessment and Plan for all problems:: She continues to do well. Her pain is well controlled. We will plan to send her home tomorrow.
--- NOTE | 2021-03-12 11:49 | HMH.ANESII ---
[facility] Anesthesia Record Part II Discharge Time: 08:56 Destination: Obstetric PACU nurse assessment reviewed?: Yes Patient Condition:: Good Anesthesia Complications:: None Swallowing reflex intact?: Yes Cyanosis?: No Blood Pressure: 110/63 Pulse Rate: 71 Temperature: 97.9 F Mental Status: Alert & Oriented Pain level:: 0 Nausea and/or vomitting:: None Intake, IV Amount: 0
[2021-03-13 06:10] VITALS: PULSE 74; PULSE 77
--- NOTE | 2021-03-13 09:16 | HMH.OBDCSM ---
General - General Admission date:: 03/11/21 Discharge date: 03/13/21 HPI - History of Present Illness History of present illness: She is a 26-year-old 8 now para 5 who was 39 weeks gestational age. She has had a previous section and as result of that was admitted for repeat lower segment transverse section at term. Hospital Course Hospital Course: She delivered by section a liveborn female child at 7:49 AM on the morning of 03/11/2021. The baby had Apgars of 8 at 1 minute and 9 at 5 minutes. She has done well postoperatively and has remained afebrile throughout her hospitalization. She is eating and drinking and ambulating. She is bottlefeeding. Her lochia is normal. She has O+ blood, she is rubella nonimmune and will receive MMR today. She was group B streptococcus negative. Her senior etl developer is Dr. Campoverde. She is discharged home to follow-up with me in approximately 2 weeks time. She will continue with her vitamins and iron. She was given a prescription for Percocet 5/325 number 20 tablets. She was given the usual instructions with respect to limiting her activity, driving and sexual activity. She was given instructions with respect to wound care. Her condition on discharge is stable and improved. Rhogam Administration: Given Objective Vital signs: Temp Pulse Resp BP Pulse Ox 98.1 F 74 18 124/78 100 03/12/21 20:42 03/13/21 06:10 03/12/21 20:42 03/12/21 20:42 03/12/21 20:42 no acute distress - *Routine HEENT Exam Head: Present: normocephalic Eye: Present: EOMI, PERRL ENT: Present: mucous membranes moist DS: Diagnosis - Discharge Diagnosis (1) Previous section complicating Status: Acute (2) Delivery by section of full-term Status: Acute (3) Rubella nonimmune status, delivered, current hospitalization Status: Acute Discharge Plan - Patient Discharge Instructions ACTIVITY: No heavy lifting DIET: continue same diet Additional Instructions: no heavy lifting or strenuous activity nothing in vagina for 6 weeks no driving while taking pain medication follow-up with dr. lugo on 03/25/21 AT 2:00 Patient Instructions: Depression, Labor and Delivery, Vaginal , Hemorrhage, DI for , DI for Pre-eclampsia, H Post Discharge Instructions, Preventing the Spread of Coronavirus Discharge Instructions - Follow up Plan Disposition: Home, Self-Care Condition at discharge:: Stable Home Medications: Home Medications Medication Instructions Recorded Confirmed Type prenat.vits,meliton,jen-huhs-owldt 1 tab PO DAILY 08/27/20 03/11/21 History Ferrous Sulfate 325 mg PO DAILY 02/11/21 03/11/21 History Oxycodone HCl/Acetaminophen 1 tab PO Q4-6H PRN #20 tablet 03/13/21 Rx [Percocet 5/325mg tablet] Prescriptions/Medication Reconciliation: New Oxycodone HCl/Acetaminophen [Percocet 5/325mg tablet] 1 tab PO Q4-6H PRN #20 tablet PRN Reason: Severe Pain Continued prenat.vits,meliton,fmp-uxby-keumr 1 tab PO DAILY Ferrous Sulfate 325 mg PO DAILY - Problem Reconciliation Problems Reviewed?: Yes
[2021-03-13 10:30] VITALS: PULSE 68; PULSE 70
== END 2021-03-13 12:30 | disposition home or self-care (01) | DRG 788 ==
PROVIDERS: Admitting Provider Nurse Practitioner Obstetrics & Gynecology; PCP Nurse Practitioner; Visit Provider Nurse Practitioner Obstetrics & Gynecology
PROC: 10D00Z1 Extraction of Products of Conception, Low, Open Approach (ICD-10-PCS; CPT 59514; principal; 2021-03-11 07:30)
DX: O34.211 Maternal care for low transverse scar from previous cesarean delivery (principal); Z37.0 Single live birth; N85.8 Other specified noninflammatory disorders of uterus; Z3A.39 39 weeks gestation of pregnancy; Z23 Encounter for immunization; O26.893 Other specified pregnancy related conditions, third trimester; O43.213 Placenta accreta, third trimester
CPT/HCPCS: 59514; 36415; 59025; 80053; 80305; 81001; 84112; 85007; 85014; 85018; 85025; 86850; 90707; 94640; 94761; C9290; C9803; G0283; G0463; J2405; U0003; U0005

== ENCOUNTER → 2021-04-26 10:20 | Outpatient (CLI) | payer OTHER, SELFPAY ==
[2021-04-26 11:44] LABS: Triiodothryronine (T3) Uptake 39 % (23.5-40.5)
[2021-04-26 11:45] LABS: Free Thyroxine Index 3.5 ug/dL (5.93-13.13); T4 (Thyroxine) 8.9 ug/dl (5.53-11.0)
[2021-04-26 11:58] LABS: Thyroid Stimulating Hormone 0.68 uIU/mL (0.465-4.68)
== END ==
PROVIDERS: Visit Provider Nurse Practitioner Obstetrics & Gynecology
DX: E04.9 Nontoxic goiter, unspecified (principal)
CPT/HCPCS: 36415; 84436; 84443; 84479

== ENCOUNTER 2021-08-22 15:30 | Outpatient (RCR) | payer OTHER, SELFPAY | END 2021-08-22 15:35 | disposition home or self-care (01) | LOC: PT 15:30 | PROVIDERS: PCP Nurse Practitioner; Visit Provider Nurse Practitioner | DX: M54.2 Cervicalgia (principal) | CPT/HCPCS: 97163 ==

== ENCOUNTER 2022-04-01 16:00 | Outpatient (RCR) | payer OTHER, SELFPAY ==
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
== END 2022-04-03 14:45 | disposition home or self-care (01) ==
LOC: PT 16:00
PROVIDERS: PCP Nurse Practitioner; Visit Provider Internal Medicine Adolescent Medicine
DX: M54.50 Low back pain, unspecified (principal)
CPT/HCPCS: 97110; 97140; 97163

== ENCOUNTER 2022-10-10 19:42 | Emergency (ER) | payer OTHER, SELFPAY ==
[2022-10-10 19:42] VITALS: BP 114/73; PULSE 110; RESP 17; TEMP 37.3; O2SAT 98; BMI 18.0
--- NOTE | 2022-10-10 19:56 | EXP.UTC ---
Discharge Plan Disposition Patient Disposition: Home, Self-Care Condition: Good Prescriptions Prescriptions: No Action medroxyprogesterone [Depo-Provera] 150 mg/mL suspension 150 mg IM [id number] Qty: 1 2RF Referrals Follow up/Referrals: Debi Campoverde DO [Primary Care Provider] - See instructions Activity Restrictions/Add. Instructions Additional Instructions/Restrictions: Drink plenty of fluids. Take tylenol for pain or fever. Follow up with your regular doctor. 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 GO TO THE ER FOR ANY WORSENING SYMPTOMS Clinical Impressions Clinical Impression: Acute viral syndrome Stand Alone Forms Stand Alone Forms: Work/School Release Instructions Patient Instructions: DI for Viral Syndrome, Coronavirus Disease 2019, Preventing the Spread of Coronavirus Discharge Instructions Discharge ED Provider: Carlos Alberto Ignacio [facility] General Stated complaint: chills,cough Time Seen by Provider: 10/10/22 19:56 History of Present Illness Provider Complaint: She states that she has had malaise, body aches, chills, fever, sinus congestion and a cough for the past 2 days. Related Data Previous Rx's Medication Instructions Recorded medroxyprogesterone 150 mg/mL 150 mg IM [id number] #1 mL 06/20/21 intramuscular suspension (Depo-Provera) Allergies Allergy/AdvReac Type Severity Reaction Status Date / Time sulfamethoxazole Allergy Unknown Verified 06/20/21 11:21 [From Bactrim] trimethoprim [From Bactrim] Allergy Unknown Verified 06/20/21 11:21 [facility] Disclaimer: The information contained in this section may have been updated after the patient was seen, as this information can be updated by other users. Medical History (Updated 10/10/22 @ 20:14 by Carlos Alberto Ignacio APRN) Anemia during in third trimester Anxiety Cervical radicular pain Encounter for induction of labor Hypertension complicating in third trimester Pneumonia Smoking (tobacco) complicating , third trimester Social History Smoking Status: Current every day smoker tobacco type: cigarettes packs per day: 1 alcohol intake: current substance use type: denies use current occupational status: unemployed Travel in the last 8 weeks: None household members: family housing: house ROS Obtained: Yes All systems reviewed & no additional complaints except as documented Constitutional Constitutional: Reports chills and Reports fever(s) Eyes Eyes: Denies eye discharge ENT Ears, Nose, Mouth, and Throat: Reports as per HPI Cardiovascular Cardiovascular: Denies chest pain Respiratory Respiratory: Denies chest congestion and Reports cough Gastrointestinal Gastrointestingal: Reports nausea; Denies abdominal pain, constipation, cramping, diarrhea or vomiting Musculoskeletal Musculoskeletal: Denies arthralgias Integumentary/Breasts Skin/Breast: Denies rash Neurologic Neurologic: Denies paresthesias Physical Exam General General appearance: alert and in no apparent distress Head Head exam: atraumatic, normocephalic and normal inspection Eye Eye exam: Present normal appearance, PERRL and EOMI ENT ENT exam: Present normal exam, normal oropharynx, mucous membranes moist, TM's normal bilaterally and normal external ear exam Neck Neck exam: Present normal inspection, full ROM and trachea midline; Absent meningismus or lymphadenopathy Chest Chest inspection: Present normal inspection and symmetric chest wall rise; Absent tenderness Respiratory Respiratory exam: Present normal lung sounds bilaterally; Absent respiratory distress Cardiovascular Cardiovascular exam: Present regular rate and normal rhythm; Absent JVD Abdominal Exam Abdominal exam: Present soft and normal bowel sounds; Absent distention, tenderness or guarding Extremities Exam Extremities exam: Present normal inspection, full ROM and normal capillary refill; Absent calf tenderness Back Exam Back exam: Present no
[2022-10-10 20:09] LABS: UTC Influenza A Antigen Negative (Negative); UTC Influenza B Antigen Negative (Negative)
[2022-10-10 20:17] VITALS: BP 114/73; PULSE 110; RESP 17; TEMP 37.3; O2SAT 98
[2022-10-10 20:19] LABS: Adenovirus,PCR Not Detected (NotDetected); Bordetella Pertussis Not Detected (NotDetected); Chlamydophila Pneumoniae, PCR Not Detected (NotDetected); Coronavirus 229E Not Detected (NotDetected); Coronavirus NL63 Not Detected (NotDetected); Coronavirus OC43 Not Detected (NotDetected); Coronovirus HKU1,PCR Not Detected (NotDetected); Human Metapneumovirus Not Detected (NotDetected); Influenza A, PCR Not Detected (NotDetected); Influenza AH1, 2009 Not Detected (NotDetected); Influenza AH1, PCR Not Detected (NotDetected); Influenza AH3,PCR Not Detected (NotDetected); Influenza B, PCR Not Detected (NotDetected); Mycoplasma Pneumoniae, PCR Not Detected (NotDetected); Parainfluenza 1, PCR Not Detected (NotDetected); Parainfluenza 2, PCR Not Detected (NotDetected); Parainfluenza 3, PCR Not Detected (NotDetected); Parainfluenza 4, PCR Not Detected (NotDetected); Respiratory Syncytial Virus Not Detected (NotDetected); Rhinovirus/Enterovirus Not Detected (NotDetected)
[2022-10-10 23:47] LABS: Coronavirus 19, PCR Detected (NotDetected)
== END 2022-10-10 20:19 | disposition home or self-care (01) ==
PROVIDERS: Emergency Provider Nurse Practitioner Family; PCP Pediatrics
DX: U07.1 COVID-19 (principal); R50.9 Fever, unspecified; R53.81 Other malaise; F17.210 Nicotine dependence, cigarettes, uncomplicated; F41.9 Anxiety disorder, unspecified
CPT/HCPCS: 87581; 87632; 87798; 87804; 99212; 99214; G0463

== ENCOUNTER 2023-03-18 20:40 | Emergency (ER) | payer OTHER, SELFPAY ==
[2023-03-18 20:40] VITALS: BP 129/86; PULSE 88; RESP 18; TEMP 36.8; O2SAT 98; BMI 22.8
[2023-03-18] MEDS: ACETAMINOPHEN 500MG TAB 1000 MG PO (21:23)
[2023-03-18 21:25] LABS: Coronavirus 19, PCR Not Detected (NotDetected); Influenza A, PCR Not Detected (NotDetected); Influenza B, PCR Not Detected (NotDetected)
--- NOTE | 2023-03-18 21:48 | ED_ITS ---
Discharge Plan Disposition Patient Disposition: Home, Self-Care Prescriptions Prescriptions: New ondansetron 4 mg tablet,disintegrating 4 mg PO Q6H PRN (Reason: nausea and vomiting) Qty: 10 0RF Referrals Follow up/Referrals: Jaya Karimi MD [Primary Care Provider] - See instructions Activity Restrictions/Add. Instructions Additional Instructions/Restrictions: Call your family doctor to establish care for this visit to the emergency department and schedule follow-up within 48 hours to ensure improvement. If you have any worsening of your condition or any other concerning signs or symptoms, return to the emergency department or your primary care doctor for further evaluation. Clinical Impressions Clinical Impression: Acute viral syndrome Stand Alone Forms Stand Alone Forms: Work/School Release Discharge ED Provider: Prakash Aguilar General Adult HPI General Chief complaint: Upper Respiratory Infection Stated complaint: covid exposure, fever, h/a, sore throat Time Seen by Provider: 03/18/23 20:41 Mode of Arrival: Ambulatory Source of Information: Patient Limitations: No Limitations Description of Symptoms (Recalled from ER Triage Doc. 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 Patient had COVID exposure recently at work and wants to make sure she is not exposing other people. No abdominal complaints Related Data Previous Rx's Medication Instructions Recorded ondansetron 4 mg disintegrating 4 mg PO Q6H PRN nausea and 03/18/23 tablet vomiting #10 tabs Allergies Allergy/AdvReac Type Severity Reaction Status Date / Time sulfamethoxazole Allergy Unknown Verified 06/20/21 11:21 [From Bactrim] trimethoprim [From Bactrim] Allergy Unknown Verified 06/20/21 11:21 [facility] Disclaimer: The information contained in this section may have been updated after the patient was seen, as this information can be updated by other users. Medical History (Updated 03/18/23 @ 22:26 by Prakash Aguilar MD) Anemia during in third trimester Anxiety Cervical radicular pain Encounter for induction of labor Hypertension complicating in third trimester Pneumonia Smoking (tobacco) complicating , third trimester Social History Smoking Status: Current every day smoker tobacco type: cigarettes packs per day: 1 alcohol intake: current substance use type: denies use current occupational status: unemployed Travel in the last 8 weeks: None household members: family housing: house ROS Obtained: Yes All systems reviewed & no additional complaints except as documented Physical Exam General General appearance: alert and in no apparent distress Head Head exam: atraumatic and normocephalic Eye Eye exam: Present normal appearance, PERRL and EOMI ENT ENT exam: Present mucous membranes moist Neck Neck exam: Present normal inspection, full ROM and trachea midline Respiratory Respiratory exam: Absent respiratory distress, wheezes, stridor, accessory muscle use or prolonged expiratory phase Cardiovascular Cardiovascular exam: Present normal rhythm Abdominal Exam Abdominal exam: Present soft; Absent distention, tenderness, guarding, rebound or rigidity Extremities Exam Extremities exam: Absent edema Neurological Exam Neurological exam: Present alert, oriented X3, CN II-XII intact and normal gait; Absent motor sensory deficit Skin Skin exam: Present warm and dry; Absent diaphoresis or erythema Medical Decision Making Medical Records Medical records reviewed: Yes I reviewed the patient's medical records. Tal Inquiry Pt receiving controlled substance: No Tal was queried for this patient: No Vital Signs: 03/18/23 20:40 03/18/23 22:58 Temperature 98.2 F 98.6 F Temperature Source Oral Oral Pulse Rate 82 Pulse Rate [Right Brachial] 88 Respiratory Rate 18 19 Blood Pressure 122/74 Blood Pressure [Right Arm] 129/86 Blood Pressure Mean [Right Arm] 100 Blood Pressure Source Automatic Cuff Blood Pressure Position Sitting 02 Sat by Pulse Oximetry 98 Oxygen Delivery Method Room Air Room Air Lab Data Lab Results 03/18/23 21:08: SARS-CoV-2 (PCR) Not detected, Influenza A Untype (PCR) Not detected, Influenza Type B (PCR) Not detected Orders (Tests/Meds): ED MEDICATIONS Discontinued Medications Generic Name Dose Route Start Last Admin Trade Name Freq PRN Reason Stop Dose Admin Acetaminophen 1,000 mg 03/18/23 21:08 03/18/23 21:23 Acetaminophen 500mg Tab PO 03/18/23 21:09 1,000 mg ONCE ONE Administration ORDERS Category Date Time Status Rapid PCR Covid and Flu A/B Stat Lab 03/18/23 21:08 Completed Medical Decision Narrative: 28-year-old female currently 33 weeks with no relevant medical history presenting with sore throat. Patient had COVID exposure recently at work and wants to make sure she is not exposing other people. No abdominal complaints. History was obtained via conversation with patient. On arrival, patient hemodynamically stable, alert, oriented x4, appropriate, GCS 15, moving all extremities spontaneously, pupils equal and reactive to light. Full physical exam performed and significant for pharyngeal erythema without tonsillitis or exudate. Cardiopulmonary exam within normal limits and patient nontachycardic. Differential includes viral syndrome, among others. Patient was given Tylenol for symptomatic management and correction of underlying abnormalities. Given patient presentation, workup, history, this most likely represents viral syndrome. Call your family doctor to establish care for this visit to the emergency department and schedule follow-up within 48 hours to ensure improvement. If you have any worsening of your condition or any other concerning signs or symptoms, return to the emergency department or your primary care doctor for further evaluation. Critical Care Critical Care Time Critical Care Time: No
[2023-03-18 22:58] VITALS: BP 122/74; PULSE 82; RESP 19; TEMP 37; O2SAT 98
== END 2023-03-18 22:59 | disposition home or self-care (01) ==
PROVIDERS: Emergency Provider Emergency Medicine; PCP Internal Medicine Adolescent Medicine
DX: O98.513 Other viral diseases complicating pregnancy, third trimester (principal); O16.3 Unspecified maternal hypertension, third trimester; O99.333 Smoking (tobacco) complicating pregnancy, third trimester; O99.013 Anemia complicating pregnancy, third trimester; R50.9 Fever, unspecified; J02.9 Acute pharyngitis, unspecified; R51.9 Headache, unspecified; B34.9 Viral infection, unspecified; F17.210 Nicotine dependence, cigarettes, uncomplicated; Z3A.33 33 weeks gestation of pregnancy
CPT/HCPCS: 87636; 99283

== ENCOUNTER 2023-10-12 19:50 | Emergency (ER) | payer OTHER, SELFPAY ==
[2023-10-12 19:51] VITALS: BP 122/86; PULSE 98; RESP 16; TEMP 36.9; O2SAT 99; BMI 20.2
--- NOTE | 2023-10-12 21:07 | HMH.EDGENADL ---
Discharge Plan Disposition Patient Disposition: Home, Self-Care Condition: Good Prescriptions Prescriptions: New naproxen 500 mg tablet 500 mg PO BID Qty: 20 0RF lidocaine [Lidoderm] 5 % adhesive patch,medicated 1 patch topical DAILY Qty: 15 0RF Rx Instructions: leave on most painful area for up to 12 hrs methocarbamol 750 mg tablet 750 mg PO Q8H PRN (Reason: pain) Qty: 20 0RF No Action ondansetron 4 mg tablet,disintegrating 4 mg PO Q6H PRN (Reason: nausea and vomiting) Qty: 10 0RF Referrals Follow up/Referrals: Jaya Karimi MD [Primary Care Provider] - See instructions Activity Restrictions/Add. Instructions Additional Instructions/Restrictions: You were evaluated in the emergency department today. 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 You may also take Tylenol every 4-6 hours as needed. Follow-up closely with your primary care provider. Return to the emergency department for new or worsening symptoms. Clinical Impressions Clinical Impression: Strain of right trapezius muscle Stand Alone Forms Stand Alone Forms: Work/School Release Instructions Patient Instructions: DI for Acute Pain -- Adult Print Language Print Language: Luxembourger Discharge ED Provider: Odalis Duenas General Adult HPI General Chief complaint: PAIN Stated complaint: neck, back pain Time Seen by Provider: 10/12/23 19:56 Mode of Arrival: Ambulatory Source of Information: Patient Limitations: No Limitations Description of Symptoms (Recalled from ER Triage Doc. by RN): Pt presents to ED for R shoulder pain X 1 week. Pt states she lifted a trailer and it has hurt since then. Pt is A&O*4 at this time. History of Present Illness HPI narrative: This patient is a 28-year-old female who denies significant past medical history presenting to the emergency department for evaluation with concern for right upper trap pain after lifting something heavy about a week ago. She states she feels knots in the muscle and feels like it swollen. Pain is worse with movement. No other concerns noted, such as numbness, tingling, or other concerns. She was well prior to this Related Data Previous Rx's ?Medication ?Instructions ?Recorded ondansetron 4 mg disintegrating 4 mg PO Q6H PRN nausea and 03/18/23 tablet vomiting #10 tabs lidocaine 5 % topical patch 1 patch topical DAILY #15 ea 10/12/23 (Lidoderm) methocarbamol 750 mg tablet 750 mg PO Q8H PRN pain #20 tabs 10/12/23 naproxen 500 mg tablet 500 mg PO BID #20 tabs 10/12/23 Allergies Allergy/AdvReac Type Severity Reaction Status Date / Time sulfamethoxazole Allergy Unknown Verified 06/20/21 11:21 [From Bactrim] trimethoprim [From Bactrim] Allergy Unknown Verified 06/20/21 11:21 [facility] Disclaimer: The information contained in this section may have been updated after the patient was seen, as this information can be updated by other users. Medical History Cervical radicular pain Anxiety Hypertension complicating in third trimester Smoking (tobacco) complicating , third trimester Encounter for induction of labor Anemia during in third trimester Pneumonia Social History Smoking Status: Current every day smoker tobacco type: cigarettes packs per day: 1 alcohol intake: current alcohol intake frequency: holidays/special occasions only substance use type: denies use current occupational status: unemployed Travel in the last 8 weeks: None household members: family housing: house ROS Obtained: Yes All systems reviewed & no additional complaints except as documented Physical Exam General General appearance: alert and in no apparent distress Head Head exam: atraumatic and normocephalic Eye Eye exam: Present normal appearance, PERRL and EOMI ENT ENT exam: Pre
[2023-10-12 21:09] VITALS: BP 106/64; PULSE 85; RESP 18; TEMP 36.8; O2SAT 96
== END 2023-10-12 21:10 | disposition home or self-care (01) ==
PROVIDERS: Emergency Provider Emergency Medicine; PCP Internal Medicine Adolescent Medicine
DX: S46.811A Strain of other muscles, fascia and tendons at shoulder and upper arm level, right arm, initial encounter (principal); M25.511 Pain in right shoulder; M54.6 Pain in thoracic spine; X50.0XXA Overexertion from strenuous movement or load, initial encounter
CPT/HCPCS: 96372; 99283; J1885

== ENCOUNTER 2024-02-11 18:34 | Emergency (ER) | payer OTHER, SELFPAY ==
[2024-02-11 19:34] LABS: UTC Influenza A Antigen Negative (Negative); UTC Influenza B Antigen Negative (Negative)
[2024-02-11 19:35] VITALS: BP 121/81; PULSE 90; RESP 18; TEMP 37.2; O2SAT 98; BMI 18.9
--- NOTE | 2024-02-11 19:56 | ED_ITS ---
Discharge Plan Disposition Patient Disposition: Home, Self-Care Condition: Good Referrals Follow up/Referrals: Jaya Karimi MD [Primary Care Provider] - See instructions Activity Restrictions/Add. Instructions Additional Instructions/Restrictions: *Monitor Temp, Over the counter Motrin or Tylenol as directed/as needed Tylenol every 4 hours and Motrin every 6 hours (as long as your family doctor has told you that you can take it) for fever or pain. and straight to ER if unable to lower temp less than 101.0 after medication given *Warm salt water gargles may help to soothe the throat *Throat Lozenges? *Warm fluids like tea with honey may help to soothe the throat? *Sleep elevated *Humidifier/Vaporizer Follow up IMMEDIATELY for new or worsening symptoms or no Noticeable improvement over the next 48-72 hours. 911 for difficulty breathing or swallowing You were tested for today for COVID19 and Influenza your test result should be back in the next 24 hours, Your results will be available on the [facility] [employer] [facility] Clinical Impressions Clinical Impression: Viral syndrome Instructions Patient Instructions: DI for Viral Syndrome Print Language Print Language: [place]ian Discharge ED Provider[place] Yarely [place] [facility] [place] General Stated complaint: Fever,congestion,cough Mode of Arrival: Ambulatory Source of Information: Patient Limitations: No Limitations Time Seen by Provider: 02/11/24 19:56 Description of Symptoms (Recalled from Triage Doc. by RN): PATIENT C/O FEVER, CONGESTION, COUGH AND BODY ACHES THAT STARTED TODAY HEENT Symptoms (Recalled from RN notes): Yes Resp Symptoms (Recalled from RN notes): Yes Skin Symptoms (Recalled from RN notes): No MS Symptoms (Recalled from RN notes): No Functional Status (Recalled from RN notes): WNL History of Present Illness Provider Complaint: Patient states that she started feeling bad earlier today with body aches, chills, nasal congestion and cough States that this evening she wasnt feeling any better so she came in to get checked Related Data Allergies Allergy/AdvReac Type Severity Reaction Status Date / Time sulfamethoxazole (From Allergy Unknown Verified 06/20/21 11:21 Bactrim) trimethoprim (From Bactrim) Allergy Unknown Verified 06/20/21 11:21 Worker's Comp Is this a Worker's Comp case?: No [facility] Disclaimer: The information contained in this section may have been updated after the patient was seen, as this information can be updated by other users. Medical History Cervical radicular pain Anxiety Hypertension complicating in third trimester Smoking (tobacco) complicating , third trimester Encounter for induction of labor Anemia during in third trimester Pneumonia Social History Smoking Status: Current every day smoker tobacco type: cigarettes packs per day: 1 alcohol intake: current alcohol intake frequency: holidays/special occasions only substance use type: denies use current occupational status: unemployed Travel in the last 8 weeks: None household members: family housing: house Have you lived/traveled outside [place] in past 30 days?: No Contact w/someone who lives/traveled outside US past 30 days?: No Exposure to someone with infectious disease in past 14 days?: No Do you have a fever (greater than 100.4 F or 38 C)?: Yes Have you tested positive for COVID-19: No Exposed to someone with COVID-19 in past 14 days?: No Do you have a sore throat?: No Do you have a cough?: Yes Do you have any weakness?: No Do you have any diarrhea?: No Are you experiencing any unusual bleeding?: No Do you have any muscle aches/pain?: No Do you have any abdominal pain?: No Are you experiencing loss of taste or smell?: No ROS Obtained: Yes All systems reviewed & no additional complaints except as documented and Yes Systems reviewed as appropriate & no additional complaints except as documented Constitutional Constitutional: Reports system reviewed and no additional complaints, except as documented, Reports as per HPI, Reports body ache, Reports chills, Reports fever(s) and Reports headache(s) ENT Ears, Nose, Mouth, and Throat: Reports system reviewed and no additional complaints, except as documented, Reports as per HPI, Reports headache(s), Reports nasal congestion and Reports nasal discharge Cardiovascular Cardiovascular: Reports system reviewed and no additional complaints, except as documented and Reports as per HPI Respiratory Respiratory: Reports system reviewed and no additional complaints, except as documented, Reports as per HPI and Reports cough Gastrointestinal Gastrointestingal: Reports system reviewed and no additional complaints, except as documented and as per HPI Neurologic Neurologic: Reports headache(s) Physical Exam General General appearance: alert and in no apparent distress ENT ENT exam: Present normal exam, normal oropharynx, mucous membranes moist and TM's normal bilaterally Respiratory Respiratory exam: Present normal lung sounds bilaterally; Absent respiratory distress or wheezes Cardiovascular Cardiovascular exam: Present regular rate, normal rhythm and normal heart sounds Abdominal Exam Abdominal exam: Present soft and normal bowel sounds; Absent distention or tenderness Neurological Exam Neurological exam: Present alert, oriented X3 and normal gait Medical Decision Making Medical Records Screening: Per USPSTF and CDC recommendations, given the prevalence of disease in our region, it is our hospital?s policy to screen for HIV and viral Hepatitis for all patients aged 18 and over and those with ongoing risk factors. Tal Inquiry Pt receiving controlled substance: No Tal was queried for this patient: No Vital Signs: 02/11/24 19:35 Temperature 99.0 F Temperature Source Oral Pulse Rate [Left Brachial] 90 Respiratory Rate 18 Blood Pressure [Left Arm] 121/81 Blood Pressure Mean [Left Arm] 94 Blood Pressure Source [Left Arm] Automatic Cuff Blood Pressure Position [Left Arm] Sitting 02 Sat by Pulse Oximetry 98 Oxygen Delivery Method Room Air Lab Data Lab results reviewed: Yes I reviewed the patient's lab results. Lab Results 02/11/24 19:24: Influenza Type A Ag Negative, Influenza Type B Ag Negative Orders (Tests/Meds): ORDERS Category Date Time Status Rapid PCR Covid and Flu A/B Stat Lab 02/11/24 19:55 Ordered
[2024-02-11 20:03] VITALS: BP 121/81; PULSE 90; RESP 18; TEMP 37.2; O2SAT 98
[2024-02-11 20:13] LABS: Coronavirus 19, PCR Not Detected (NotDetected); Influenza A, PCR Not Detected (NotDetected); Influenza B, PCR Not Detected (NotDetected)
== END 2024-02-11 20:11 | disposition home or self-care (01) ==
PROVIDERS: Emergency Provider Nurse Practitioner; PCP Internal Medicine Adolescent Medicine
DX: B34.9 Viral infection, unspecified (principal); R50.9 Fever, unspecified; R05.9 Cough, unspecified; R09.81 Nasal congestion; M79.10 Myalgia, unspecified site; R51.9 Headache, unspecified
CPT/HCPCS: 87636; 87804; 99212; G0381

== ENCOUNTER 2024-03-30 19:13 | Emergency (ER) | payer OTHER, SELFPAY ==
[2024-03-30 19:19] VITALS: BP 120/87; PULSE 80; RESP 18; TEMP 36.9; O2SAT 99; BMI 18.5
--- NOTE | 2024-03-30 19:52 | [facility].EDGENADL ---
Discharge Plan Disposition Patient Disposition: Home, Self-Care Prescriptions Prescriptions: New cephalexin 500 mg capsule 1,000 mg PO BID 7 Days Qty: 28 0RF Referrals Follow up/Referrals: Jaya Karimi MD [Primary Care Provider] - See instructions Activity Restrictions/Add. Instructions Additional Instructions/Restrictions: Keflex twice daily for 7 days. Call your family doctor to establish care for this visit to the emergency department and schedule follow-up within 48 hours to ensure improvement. If you have any worsening of your condition or any other concerning signs or symptoms, return to the emergency department or your primary care doctor for further evaluation. Clinical Impressions Clinical Impression: Impetigo Instructions Patient Instructions: DI for Skin Abscess Print Language Print Language: Setswana Discharge ED Provider: Prakash Aguilar General Adult HPI General Chief complaint: Skin/Abscess/Foreign Body Stated complaint: ear ache Time Seen by Provider: 03/30/24 19:32 Mode of Arrival: Ambulatory Source of Information: Patient Limitations: No Limitations Description of Symptoms (Recalled from ER Triage Doc. by RN): Pt Presents for evaluation of inflammed ear piercing to her left ear. History of Present Illness HPI narrative: Please note that above description of symptoms, in this electronic medical record under categorization of recalled from ER triage doctor by RN are reflective of an initial nursing assessment, however, is not reflective of my full history and physical exam that was personally taken and clarified. Consequentially, this preceding description of symptoms, which may include the patient's categorized chief complaint in the EMR, do not reflect my personal clinical impression, and the ultimate description of history of present illness and patient stated complaints should be deferred to this section of the note. Unless stated otherwise or congruent with this section of the note, additional signs, symptoms, or incongruence should be interpreted as inaccurate with my clinical impression. Related Data Previous Rx's ?Medication ?Instructions ?Recorded cephalexin 500 mg capsule 1,000 mg (2 x 500 mg) PO BID 7 03/30/24 days #28 caps Allergies Allergy/AdvReac Type Severity Reaction Status Date / Time sulfamethoxazole (From Allergy Unknown Verified 06/20/21 11:21 Bactrim) trimethoprim (From Bactrim) Allergy Unknown Verified 06/20/21 11:21 [facility] Disclaimer: The information contained in this section may have been updated after the patient was seen, as this information can be updated by other users. Medical History Cervical radicular pain Anxiety Hypertension complicating in third trimester Smoking (tobacco) complicating , third trimester Encounter for induction of labor Anemia during in third trimester Pneumonia Social History Smoking Status: Current every day smoker tobacco type: cigarettes packs per day: 1 alcohol intake: current alcohol intake frequency: holidays/special occasions only substance use type: denies use current occupational status: unemployed Travel in the last 8 weeks: None household members: family housing: house Have you lived/traveled outside [place] in past 30 days?: No Contact w/someone who lives/traveled outside [place] past 30 days?: No Exposure to someone with infectious disease in past 14 days?: No Do you have a fever (greater than 100.4 F or 38 C)?: No Have you tested positive for COVID-19: No Exposed to someone with COVID-19 in past 14 days?: No Do you have a sore throat?: No Do you have a cough?: No Do you have any weakness?: No Do you have any diarrhea?: No Are you experiencing any unusual bleeding?: No Do you have any muscle aches/pain?: No Do you have any abdominal pain?: No Are you experiencing loss of taste or smell?: No Other Medical History Have you received the Flu Vaccine for this season: No Have you received the Pneumonia Vaccine: No ROS Obtained: Yes All systems reviewed & no additional complaints except as documented Physical Exam General General appearance: alert Head Head exam: atraumatic and normocephalic Eye Eye exam: Present normal appearance, PERRL and EOMI ENT ENT exam: Absent normal external ear exam (Patient has honey crusting, tenderness, erythema earlobe without drainage. No fluctuance. Does have lymphadenopathy of the cervical chain inferior to this) Neck Neck exam: Present normal inspection, full ROM and trachea midline Respiratory Respiratory exam: Absent respiratory distress, wheezes, stridor, accessory muscle use or prolonged expiratory phase Cardiovascular Cardiovascular exam: Present other (Pulses equal symmetric in upper and lower extremities) Abdominal Exam Abdominal exam: Present soft; Absent distention, tenderness or pulsatile mass Extremities Exam Extremities exam: Absent edema Neurological Exam Neurological exam: Present alert, oriented X3 and CN II-XII intact; Absent motor sensory deficit Skin Skin exam: Present warm and dry; Absent diaphoresis or erythema Medical Decision Making Medical Records Medical records reviewed: Yes I reviewed the patient's medical records. Screening: Per USPSTF and CDC recommendations, given the prevalence of disease in our region, it is our hospital?s policy to screen for HIV and viral Hepatitis for all patients aged 18 and over and those with ongoing risk factors. Tal Inquiry Pt receiving controlled substance: No Tal was queried for this patient: No Vital Signs: 03/30/24 19:19 Temperature 98.5 F Temperature Source Oral Pulse Rate [Right] 80 Respiratory Rate 18 Blood Pressure [Right Arm] 120/87 Blood Pressure Mean [Right Arm] 98 Blood Pressure Source [Right Arm] Automatic Cuff Blood Pressure Position [Right Arm] Sitting 02 Sat by Pulse Oximetry 99 Oxygen Delivery Method Room Air Orders (Tests/Meds): ED MEDICATIONS Generic Name Dose Route Start Last Admin Trade Name Freq PRN Reason Stop Dose Admin Cephalexin HCl 1,000 mg 03/30/24 19:51 Cephalexin 500mg Capsule PO 03/30/24 19:52 ONCE ONE Medical Decision Narrative: Otherwise healthy 29-year-old female presenting with concern for infection of ear piercing hole. States that this has been going on for the last couple of days, aching, throbbing, red, crusting. Came in for further evaluation because she has not noticed anything that makes it better or worse other than removing the crusting. No systemic symptoms. History was obtained via conversation with patient. On arrival, patient hemodynamically stable, alert, oriented x4, appropriate, GCS 15, moving all extremities spontaneously, pupils equal and reactive to light. Full physical exam performed and significant for she does have honey crusting overlying the left earlobe piercing. No fluctuance, but it is erythematous and tender. Lymphadenopathy is cervical chain on the left as well. Differential includes cellulitis, less likely be abscess or chondritis, among other. Because patient without systemic signs or symptoms, clinically well, hematologic workup considered, but not deemed necessary. Patient was given initial gram of Keflex here and rest was sent to pharmacy. Because patient at baseline without signs or symptoms of clinical decompensation, deemed appropriate for discharge. Results were relayed to patient who voiced understanding and were agreeable to outpatient management and follow up. I discussed my clinical impression with patient and answered all questions. At this time, the evidence for any other entities in the differential is insufficient to warrant any further testing or ED observation. This was explained as well. Advisory was given that persistent or worsening symptoms require further evaluation. I confirmed the understanding of this discussion. General Manager [employer] disclaimer Much of this encounter note is an electronic heel cementer machine spoken language to printed text. Electronic heel cementer machine of the spoken language may permit errors. Although I have reviewed the note, some errors may still exist. Critical Care Critical Care Time Critical Care Time: No
[2024-03-30] MEDS: cephALEXin 500MG CAPSULE 1000 MG PO (19:57)
[2024-03-30 20:05] VITALS: BP 120/87; PULSE 80; RESP 18; TEMP 36.9; O2SAT 99
== END 2024-03-30 20:06 | disposition home or self-care (01) ==
PROVIDERS: Emergency Provider Emergency Medicine; PCP Internal Medicine Adolescent Medicine
DX: L01.00 Impetigo, unspecified (principal); H92.02 Otalgia, left ear; H93.8X2 Other specified disorders of left ear; F17.210 Nicotine dependence, cigarettes, uncomplicated
CPT/HCPCS: 99283

== ENCOUNTER 2024-05-28 09:54 | Outpatient (CLI) | payer OTHER, SELFPAY ==
[2024-05-28 10:28] LABS: Basophils # 0.1 K/mm3 (0-0.2); Basophils % 0.6 % (0.1-2.0); Eosinophils # 0.1 K/mm3 (0.0-0.4); Eosinophils % 0.8 % (0.1-12.0); Hematocrit 47.8 % (37.0-47.0); Hemoglobin 16.3 g/dL (12.2-16.2); Lymphocytes # 3.5 K/mm3 (0.7-4.5); Lymphocytes % 38.6 % (10-50); Mean Corpuscular HGB Conc 34.1 g/dL (31.8-35.4); Mean Corpuscular Hemoglobin 31.1 pg (27.0-31.2); Mean Corpuscular Volume 91.2 fl (81-99); Monocytes # 0.4 K/mm3 (0.1-1.0); Monocytes % 4.1 % (1.7-9.3); Neutrophils % 55.7 % (37.0-80.0); Nucleated Red Blood Cells # 0 10^3/uL; Nucleated Red Blood Cells % 0 %; Platelet Count 300 K/mm3 (142-424); Red Blood Count 5.24 M/mm3 (4.20-5.40); Red Cell Distribution Width 12.6 % (11.5-17.5); Red Cell Distribution Width-SD 42.6 fL
[2024-05-28 11:00] LABS: Albumin Level 5.2 g/dl (3.5-5.0); Chloride 107 mmol/L (98-107); Potassium 4.1 mmoL/L (3.5-5.1); Sodium 142 mmol/L (136-145)
[2024-05-28 11:03] LABS: Alanine Aminotransferase 18 U/L (12-78); Albumin/Globulin Ratio 1.9 (1.1-1.8); Alkaline Phosphatase 69 U/L (38-126); Anion Gap 17.1 mEq/L (5-15); Aspartate Amino Transferase 23 U/L (14-36); Bilirubin,Total 0.5 mg/dl (0.2-1.3); Blood Urea Nitrogen 9 mg/dl (7-17); Calcium 9.3 mg/dl (8.4-10.2); Carbon Dioxide 22 mmol/L (22.0-30.0); Chol/HDL Ratio 3.2 (1-3.5); Cholesterol 131 mg/dl (140-200); Estimated Glomerular Filt Rate 118 ml/min (>60); GFR (African American) 143 ML/MIN (>60); Globulin 2.8 g/dL (1.3-3.2); Glucose 87 mg/dl (74-100); HDL Cholesterol 41 mg/dl (40-60); Triglycerides 70 mg/dl (30-150); VLDL Cholesterol 14 mg/dL (0-40)
[2024-05-28 11:14] LABS: Direct LDL Cholesterol 72.55 mg/dL (100-129)
[2024-05-28 11:35] LABS: Thyroid Stimulating Hormone 1.35 uIU/mL (0.465-4.68)
== END 2024-05-28 23:59 | disposition home or self-care (01) ==
LOC: LAB 09:56
PROVIDERS: PCP Internal Medicine Adolescent Medicine; Visit Provider Nurse Practitioner Family
DX: Z00.00 Encounter for general adult medical examination without abnormal findings (principal); R53.83 Other fatigue
CPT/HCPCS: 36415; 80053; 80061; 84443; 85025

== ENCOUNTER 2024-07-27 20:22 | Emergency (ER) | payer OTHER, SELFPAY ==
[2024-07-27 20:37] VITALS: BP 130/80; PULSE 101; RESP 14; TEMP 36.8; O2SAT 100; BMI 19.1
--- NOTE | 2024-07-27 20:43 | ED_ITS ---
Discharge Plan Disposition Patient Disposition: Home, Self-Care Condition: Good Prescriptions Prescriptions: New ondansetron 4 mg tablet,disintegrating 4 mg PO Q8H PRN (Reason: nausea and vomiting) 4 Days Qty: 12 0RF No Action cephalexin 500 mg capsule 1,000 mg PO BID 7 Days Qty: 28 0RF Referrals Follow up/Referrals: Christine Bryan DO [Staff Physician, [employer]] - See instructions Carroll Gaspar MD [Staff Physician, [employer]] - See instructions Rajwinder Martínez DO [Staff Physician, [employer]] - See instructions Jaya Karimi MD [Primary Care Provider, Internal Medicine] - See instructions Activity Restrictions/Add. Instructions Additional Instructions/Restrictions: You were evaluated in the emergency department today. At this time, your lab workup and exam is reassuring. Your hCG was 2314. At this time, were not able to see anything on transabdominal ultrasound, so we recommend close follow-up with OB for further evaluation and management. Please also follow-up closely with your primary care provider. We feel your symptoms are likely the result of a viral syndrome. insurance agents supervisor your prescription for Zofran to take as needed for nausea. Take Tylenol every 4-6 hours as needed for pain/fever. Return to the emergency department for new or worsening symptoms. Clinical Impressions Clinical Impression: Abdominal pain affecting , Exposure to virus, Cough Stand Alone Forms Stand Alone Forms: Work/School Release Instructions Patient Instructions: Cough, DI for Viral Upper Respiratory Infection -- Adult, DI for Viral Syndrome Print Language Print Language: Eritrean Discharge ED Provider: Odalis Duenas General Adult HPI <Marlyn Jinag (ED), DRILLING FIELD SPECIALIST - Last Filed: 07/27/24 21:45> General Chief complaint: Cough Stated complaint: nausea,congested,headache,cough Time Seen by Provider: 07/27/24 20:30 Mode of Arrival: Family Vehicle Source of Information: Patient Description of Symptoms (Recalled from ER Triage Doc. by RN): Cough, congestion, PLASCENCIA, nausea, chills and abd pain Pt presents to the ED with mutiple complaints. 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 Pt c/o cough, congestion, PLASCENCIA, nausea, abd pain and chills X 2 days. Pt rpeorts that she is with LMP on June 27, 2024. History of Present Illness HPI narrative: This is a 29-year-old female who presents to the ED today for complaint of cough, congestion, headache, nausea, chills and abdominal pain. Patient presents to the ED with complaints that she recently was exposed to rotavirus and believes she may have a virus. 2 days ago she had 2 episodes of diarrhea that has not had any since. Patient just found out 3 days ago she was . Her last menstrual period was 06/27/2024. She has not been to a doctor yet to confirm . Related Data Previous Rx's ?Medication ?Instructions ?Recorded cephalexin 500 mg capsule 1,000 mg (2 x 500 mg) PO BID 7 03/30/24 days #28 caps ondansetron 4 mg disintegrating 4 mg PO Q8H PRN nausea and 07/27/24 tablet vomiting 4 days #12 tabs Allergies Allergy/AdvReac Type Severity Reaction Status Date / Time sulfamethoxazole (From Allergy Unknown Verified 06/20/21 11:21 Bactrim) trimethoprim (From Bactrim) Allergy Unknown Verified 06/20/21 11:21 PFS <Marlyn Jiang (ED), DRILLING FIELD SPECIALIST - Last Filed: 07/27/24 21:45> [facility] Disclaimer: The information contained in this section may have been updated after the patient was seen, as this information can be updated by other users. Medical History Cervical radicular pain Anxiety Hypertension complicating in third trimester Smoking (tobacco) complicating , third trimester Encounter for induction of labor Anemia during in third trimester Pneumonia Social History Smoking Status: Current every day smoker tobacco type: cigarettes packs per day: 1 alcohol intake: current alcohol intake frequency: holidays/special occasions only substance use type: denies use current occupational status: unemployed Travel in the last 8 weeks?: None household members: family housing: house Have you lived/traveled outside [place] in past 30 days?: No Contact w/someone who lives/traveled outside US past 30 days?: No Exposure to someone with infectious disease in past 14 days?: No Do you have a fever (greater than 100.4 F or 38 C)?: No Have you tested positive for COVID-19?: No Exposed to someone with COVID-19 in past 14 days?: No Do you have a sore throat?: No Do you have a cough?: No Do you have any weakness?: No Do you have any diarrhea?: No Are you experiencing any unusual bleeding?: No Do you have any muscle aches/pain?: No Do you have any abdominal pain?: No Are you experiencing loss of taste or smell?: No Other Medical History Have you received the Flu Vaccine for this season: No Have you received the Pneumonia Vaccine: No <Marlyn Jiang (ED), DRILLING FIELD SPECIALIST - Last Filed: 07/27/24 21:45> ROS Obtained: Yes Systems reviewed as appropriate & no additional complaints except as documented Constitutional Constitutional: Reports as per HPI Physical Exam <Marlyncaren Jiang (ED), DRILLING FIELD SPECIALIST - Last Filed: 07/27/24 21:45> General General appearance: alert and in no apparent distress Head Head exam: atraumatic and normocephalic Eye Eye exam: Present PERRL and EOMI ENT ENT exam: Present normal oropharynx and mucous membranes moist Neck Neck exam: Present full ROM and trachea midline Respiratory Respiratory exam: Present normal lung sounds bilaterally Cardiovascular Cardiovascular exam: Present regular rate, normal rhythm, normal heart sounds, +S1 and +S2 Abdominal Exam Abdominal exam: Present soft and normal bowel sounds Extremities Exam Extremities exam: Present full ROM and normal capillary refill Neurological Exam Neurological exam: Present alert, oriented X3 and normal gait Skin Skin exam: Present warm, dry and intact Medical Decision Making <[facility]arlyn [facility] ([facility]), DRILLING FIELD SPECIALIST - Last Filed: 07/27/24 21:45> Medical Records Screening: Per USPSTF and CDC recommendations, given the prevalence of disease in our region, it is our hospital?s policy to screen for HIV and viral Hepatitis for all patients aged 18 and over and those with ongoing risk factors. Tal Inquiry Pt receiving controlled substance: No Tal was queried for this patient: No Vital Signs: 07/27/24 20:37 07/27/24 22:27 07/27/24 22:30 Temperature 98.2 F Temperature Source Oral Pulse Rate 74 76 Pulse Rate [Left] 101 H Respiratory Rate 14 Blood Pressure 108/66 L 104/64 L Blood Pressure [Right Arm] 130/80 Blood Pressure Mean [Right Arm] 96 Blood Pressure Source [Right Arm] Automatic Cuff Blood Pressure Position [Right Arm] Sitting 02 Sat by Pulse Oximetry 100 100 100 Oxygen Delivery Method Room Air 07/27/24 22:47 Temperature 98.3 F Temperature Source Pulse Rate 72 Pulse Rate [Left] Respiratory Rate 16 Blood Pressure 104/64 L Blood Pressure [Right Arm] Blood Pressure Mean [Right Arm] Blood Pressure Source [Right Arm] Blood Pressure Position [Right Arm] 02 Sat by Pulse Oximetry Oxygen Delivery Method Room Air Lab Data Lab Results 07/27/24 20:50: Urine Color Yellow, Urine Appearance Clear, Urine pH 7.0, Ur Specific [place] 1.015, Urine Protein Negative, Urine Glucose (UA) Negative, Urine Ketones Negative, Urine Blood Negative, Urine Nitrate Negative, Urine Bilirubin Negative, Urine Urobilinogen 2.0, Ur Leukocyte Esterase Negative, Urine RBC Occasional, Urine WBC 3-5, Ur Squamous Epith Cells 10-20, Urine Bacteria 3+ 07/27/24 21:05: WBC 11.1 H, RBC 4.93, Hgb 15.7, Hct 44.9, MCV 91.1, MCH 31.8 H, MCHC 35.0, RDW 12.4, Plt Count 305, MPV 8.8, Neut % (Auto) 56.9, Lymph % (Auto) 36.3, Town[place] % (Auto) 4.5, Eos % (Auto) 1.6, Baso % (Auto) 0.4, Neut # (Auto) 6.3, Lymph # (Auto) 4.0, Towner # (Auto) 0.5, Eos # (Auto) 0.2, Baso # (Auto) 0.0, PT 10.9, INR 0.98, Sodium 138, Potassium 4.0, Chloride 107, Carbon Dioxide 24, Anion Gap 11.0, BUN 11, Creatinine 0.70, Estimated Creat Clear 86, Estimated GFR 99, Est GFR ( Amer) 120, Glucose 93, Calcium 11.1 H, Magnesium 2.0, Total Bilirubin 0.6, AST 22, ALT 13, Alkaline Phosphatase 53, Total Protein 8.0, A lbumin 5.3 H, Globulin 2.7, Albumin/Globulin Ratio 2.0 H, Lipase 197, HCG, Quant 2314 H, HCV Ab HERBIE w/Rflx PCR Qn Negative 07/27/24 21:05 07/27/24 21:05 Orders (Tests/Meds): ED MEDICATIONS Discontinued Medications Generic Name Dose Route Start Last Admin Trade Name Jamesq PRN Reason Stop Dose Admin Diphenhydramine HCl 25 mg 07/27/24 20:41 07/27/24 20:53 Diphenhydramine 50mg/Ml Vial IV 07/27/24 20:42 25 mg ONCE ONE Administration Sodium Chloride 1,000 mls @ 999 mls/hr 07/27/24 20:41 07/27/24 20:54 Sod Chlor 0.9% 1000ml Bag IV 07/27/24 21:41 999 mls/hr .Q1H1M ONE Administration Ondansetron HCl 4 mg 07/27/24 20:41 07/27/24 20:53 Ondansetron 4mg/2ml Vial IV 07/27/24 20:42 4 mg ONCE ONE Administration ORDERS Category Date Time Status POCUS Point of Care (ER Only) Stat Exams 07/27/24 21:53 Completed CBC [Complete Blood Count Auto Diff] Stat Lab 07/27/24 21:05 Completed Comprehensive Metabolic Panel Stat Lab 07/27/24 21:05 Completed HCG,Quantitative Stat Lab 07/27/24 21:05 Completed HIV Combo Stat Lab 07/27/24 21:05 Received Hepatitis C Ab Qual. W/ RFX Stat Lab 07/27/24 21:05 Completed Lipase Stat Lab 07/27/24 21:05 Completed Magnesium Stat Lab 07/27/24 21:05 Completed PT INR [Prothrombin Time INR] Stat Lab 07/27/24 21:05 Completed Urinalysis and Microscopic Stat Lab 07/27/24 20:50 Completed Urine Culture Stat Micro 07/27/24 20:50 Received Medical Decision Narrative: patient is a 29-year-old female presenting to the emergency department for evaluation of nausea, cough, congestion, headache, nausea and chills. She has had 2 episodes of diarrhea. She has been exposed to rotavirus. She is also approximately 4 to 5 weeks . She has not been to a doctor yet to confirm .. Patient is hemodynamically stable and nontoxic-appearing upon arrival, afebrile. Differential diagnosis includes rotavirus, viral illness, symptoms, among others. Workup will be conducted with hematologic labs. Initial inventions include crystalloid bolus and nausea meds. Discussed with Dr. Duenas that she does have diffuse abdominal pain this may be from viral illness or related. We are going to wait on the hCG quant and then possibly do a POCUS if the quant is high enough to see anything. Dr. Duenas will take patient over. Patient is currently stable getting IV fluids. <Odalis Duenas, DO - Last Filed: 07/27/24 23:55> Vital Signs: 07/27/24 20:37 07/27/24 22:27 07/27/24 22:30 Temperature 98.2 F Temperature Source Oral Pulse Rate 74 76 Pulse Rate [Left] 101 H Respiratory Rate 14 Blood Pressure 108/66 L 104/64 L Blood Pressure [Right Arm] 130/80 Blood Pressure Mean [Right Arm] 96 Blood Pressure Source [Right Arm] Automatic Cuff Blood Pressure Position [Right Arm] Sitting 02 Sat by Pulse Oximetry 100 100 100 Oxygen Delivery Method Room Air 07/27/24 22:47 Temperature 98.3 F Temperature Source Pulse Rate 72 Pulse Rate [Left] Respiratory Rate 16 Blood Pressure 104/64 L Blood Pressure [Right Arm] Blood Pressure Mean [Right Arm] Blood Pressure Source [Right Arm] Blood Pressure Position [Right Arm] 02 Sat by Pulse Oximetry Oxygen Delivery Method Room Air Lab Data Lab Results 07/27/24 20:50: Urine Color Yellow, Urine Appearance Clear, Urine pH 7.0, Ur Specific [place] 1.015, Urine Protein Negative, Urine Glucose (UA) Negative, Urine Ketones Negative, Urine Blood Negative, Urine Nitrate Negative, Urine Bilirubin Negative, Urine Urobilinogen 2.0, Ur Leukocyte Esterase Negative, Urine RBC Occasional, Urine WBC 3-5, Ur Squamous Epith Cells 10-20, Urine Bacteria 3+ 07/27/24 21:05: WBC 11.1 H, RBC 4.93, Hgb 15.7, Hct 44.9, MCV 91.1, MCH 31.8 H, MCHC 35.0, RDW 12.4, Plt Count 305, MPV 8.8, Neut % (Auto) 56.9, Lymph % (Auto) 36.3, [place] % (Auto) 4.5, Eos % (Auto) 1.6, Baso % (Auto) 0.4, Neut # (Auto) 6.3, Lymph # (Auto) 4.0, [place] # (Auto) 0.5, Eos # (Auto) 0.2, Baso # (Auto) 0.0, PT 10.9, INR 0.98, Sodium 138, Potassium 4.0, Chloride 107, Carbon Dioxide 24, Anion Gap 11.0, BUN 11, Creatinine 0.70, Estimated Creat Clear 86, Estimated GFR 99, Est GFR ( Amer) 120, Glucose 93, Calcium 11.1 H, Magnesium 2.0, Total Bilirubin 0.6, AST 22, ALT 13, Alkaline Phosphatase 53, Total Protein 8.0, A lbumin 5.3 H, Globulin 2.7, Albumin/Globulin Ratio 2.0 H, Lipase 197, HCG, Quant 2314 H, HCV Ab HERBIE w/Rflx PCR Qn Negative Orders (Tests/Meds): ED MEDICATIONS Discontinued Medications Generic Name Dose Route Start Last Admin Trade Name Freq PRN Reason Stop Dose Admin Diphenhydramine HCl 25 mg 07/27/24 20:41 07/27/24 20:53 Diphenhydramine 50mg/Ml Vial IV 07/27/24 20:42 25 mg ONCE ONE Administration Sodium Chloride 1,000 mls @ 999 mls/hr 07/27/24 20:41 07/27/24 20:54 Sod Chlor 0.9% 1000ml Bag IV 07/27/24 21:41 999 mls/hr .Q1H1M ONE Administration Ondansetron HCl 4 mg 07/27/24 20:41 07/27/24 20:53 Ondansetron 4mg/2ml Vial IV 07/27/24 20:42 4 mg ONCE ONE Administration ORDERS Category Date Time Status POCUS Point of Care (ER Only) Stat Exams 07/27/24 21:53 Completed CBC [Complete Blood Count Auto Diff] Stat Lab 07/27/24 21:05 Completed Comprehensive Metabolic Panel Stat Lab 07/27/24 21:05 Completed HCG,Quantitative Stat Lab 07/27/24 21:05 Completed HIV Combo Stat Lab 07/27/24 21:05 Received Hepatitis C Ab Qual. W/ RFX Stat Lab 07/27/24 21:05 Completed Lipase Stat Lab 07/27/24 21:05 Completed Magnesium Stat Lab 07/27/24 21:05 Completed PT INR [Prothrombin Time INR] Stat Lab 07/27/24 21:05 Completed Urinalysis and Microscopic Stat Lab 07/27/24 20:50 Completed Urine Culture Stat Micro 07/27/24 20:50 Received Medical Decision Narrative: patient is a 29-year-old female presenting to the emergency department for evaluation of nausea, cough, congestion, headache, nausea and chills. She has had 2 episodes of diarrhea. She has been exposed to rotavirus. She is also approximately 4 to 5 weeks . She has not been to a doctor yet to confirm .. Patient is hemodynamically stable and nontoxic-appearing upon arrival, afebrile. Differential diagnosis includes rotavirus, viral illness, symptoms, among others. Workup will be conducted with hematologic labs. Initial inventions include crystalloid bolus and nausea meds. Discussed with Dr. Duenas that she does have diffuse abdominal pain this may be from viral illness or related. We are going to wait on the hCG quant and then possibly do a POCUS if the quant is high enough to see anything. Dr. Duenas will take patient over. Patient is currently stable getting IV fluids. DO Henrique: I was consulted by the ADWOA, and we discussed the complexity of the problems being addressed. I approved the treatment and management plan for this patient's care in the emergency department, thus performing a substantive portion of the medical decision making. I assumed care the patient at 10 PM at time of departure the previous provider. Labs obtained are reassuring with only very mild leukocytosis, not overtly concerning for an acute significant infection. Chemistry is reassuring with normal kidney function, liver enzymes. Urinalysis is not concerning for infection. hCG is 2300. I attempted to perform bedside OB ultrasound and did not identify a definitive IUP, however the patient has no significant abdominal pain on my assessment and no significant tenderness. We have not definitively excluded ectopic at this time, which I did advise to the patient, but I do not feel that she likely has acute life-threatening surgical intra-abdominal pathology requiring admission or further evaluation emergently at this time. I feel she is appropriate for close follow-up with OB on an outpatient basis. I prescribed Zofran given her multiple recent viral exposures and symptoms, which I presume are related to viral syndrome. She was given very strict return precautions. dOalis Duenas DO Procedures <Odalis Duenas DO - Last Filed: 07/27/24 23:55> Limited Ultrasound Findings:: Limited OB ultrasound Indication: Positive test, abdominal pain Identified structures: [-Uterus -Left adnexa -Right adnexa -Pouch of Juan] Findings: Uterus: No definitive IUP Right adnexa: Normal Left adnexa: Normal Cul de sac: Free fluid absent Impression: -IUP: Unable to visualize -Ectopic : No definitive ectopic visualized -Free fluid: Absent Images were saved to permanent archive The study was technically adequate CPT Transabdominal: 47928-10 This study was performed by me, and I personally interpreted all images/videos. Based on my clinical judgement, these images were adequate and did not necessitate further imaging. Critical Care <Marlyn Jiang (GIL), DRILLING FIELD SPECIALIST - Last Filed: 07/27/24 21:45> Critical Care Time Critical Care Time: No
[2024-07-27] MEDS: diphenhydrAMINE 50MG/ML VIAL 25 MG IV (20:53)
[2024-07-27] MEDS: ONDANSETRON 4MG/2ML VIAL 4 MG IV (20:53)
[2024-07-27] MEDS: 0.9 % SODIUM CHLORIDE 1000ML 1,000 ML 999 ML IV (20:54)
[2024-07-27 21:08] LABS: Microscopic, Urine URINE MICROSCOPIC (MICROSCOPIC)
[2024-07-27 21:09] LABS: Appearance,Urine CLEAR (Clear); Bilirubin,Urine Negative (Negative); Blood, Urine Negative (Negative); Color,Urine YELLOW (Yellow); Glucose,Urine (UA) Negative (Negative); Ketones,Urine Negative (Negative); Leukocyte Esterase,Urine Negative (Negative); Nitrate,Urine Negative (Negative); Protein,Urine Negative (Negative); Specific Gravity, Urine 1.015 (1.005-1.030)
[2024-07-27 21:21] LABS: Basophils % 0.4 % (0.1-2.0); Eosinophils # 0.2 Kmm3 (0.0-0.4); Eosinophils % 1.6 % (0.1-12.0); Hematocrit 44.9 % (37.0-47.0); Hemoglobin 15.7 g/dL (12.2-16.2); Immature Granulocytes # 0.03 10^3uL; Immature Granulocytes % 0.3 %; Lymphocytes % 36.3 % (10-50); Mean Corpuscular Hemoglobin 31.8 pg (27.0-31.2); Mean Corpuscular Volume 91.1 fl (81-99); Mean Platelet Volume 8.8 fl (7.4-10.4); Monocytes # 0.5 K/mm3 (0.1-1.0); Monocytes % 4.5 % (1.7-9.3); Neutrophils # 6.3 K/mm3 (1.8-7.8); Neutrophils % 56.9 % (37.0-80.0); Nucleated Red Blood Cells # 0 10^3/uL; Nucleated Red Blood Cells % 0 %; Platelet Count 305 K/mm3 (142-424); Red Blood Count 4.93 M/mm3 (4.20-5.40); Red Cell Distribution Width 12.4 % (11.5-17.5); Red Cell Distribution Width-SD 41.5 fL; White Blood Count 11.1 K/mm3 (4.8-10.8)
[2024-07-27 21:25] LABS: Alanine Aminotransferase 13 U/L (12-78); Albumin Level 5.3 g/dl (3.5-5.0); Alkaline Phosphatase 53 U/L (38-126); Aspartate Amino Transferase 22 U/L (14-36); Bilirubin,Total 0.6 mg/dl (0.2-1.3); Blood Urea Nitrogen 11 mg/dl (7-17); Calcium 11.1 mg/dl (8.4-10.2); Carbon Dioxide 24 mmol/L (22.0-30.0); Chloride 107 mmol/L (98-107); Creatinine Clearance Estimated 86 mL/min (50-200); Estimated Glomerular Filt Rate 99 ml/min (>60); GFR (African American) 120 ML/MIN (>60); Globulin 2.7 g/dL (1.3-3.2); Glucose 93 mg/dl (74-100); Lipase 197 U/L (23-300); Sodium 138 mmol/L (136-145)
[2024-07-27 21:26] LABS: Bacteria,Urine 3+ /lpf; RBC,Urine Occasional #/hpf (0-3)
[2024-07-27 21:28] LABS: INR 0.98 (0.9-1.1); Prothrombin Time 10.9 seconds (10.1-12.5)
[2024-07-27 21:42] LABS: HCG,Quantitative 2314 mIU/ml (0-5.42)
[2024-07-27 22:14] LABS: Hepatitis C Ab Qual. W/ RFX NEGATIVE (Negative)
[2024-07-27 22:27] VITALS: BP 108/66; PULSE 74; O2SAT 100
[2024-07-27 22:30] VITALS: BP 104/64; PULSE 76; O2SAT 100
[2024-07-27 22:47] VITALS: BP 104/64; PULSE 72; RESP 16; TEMP 36.8; O2SAT 99
[2024-07-28 04:59] LABS: HIV Combo NEGATIVE (Negative)
--- NOTE | 2024-07-30 09:21 | PC.NURSE ---
Urine culture results reviewed by Dr. Gagnon. No new orders received.
== END 2024-07-27 22:50 | disposition home or self-care (01) ==
PROVIDERS: Nurse Practitioner; Emergency Provider Emergency Medicine; PCP Internal Medicine Adolescent Medicine
DX: O26.891 Other specified pregnancy related conditions, first trimester (principal); R10.84 Generalized abdominal pain; R19.7 Diarrhea, unspecified; Z3A.01 Less than 8 weeks gestation of pregnancy
CPT/HCPCS: 80053; 80074; 81001; 83690; 83735; 84702; 85025; 85610; 87086; 87389; 96361; 96374; 96375; 99285; J1200; J2405; J7030

== ENCOUNTER 2024-08-31 21:17 | Emergency (ER) | payer OTHER, SELFPAY ==
[2024-08-31 21:19] VITALS: BP 127/79; PULSE 98; RESP 14; TEMP 37.1; O2SAT 99; BMI 19.5
[2024-08-31 21:41] LABS: Bilirubin,Urine Negative (Negative); Color,Urine YELLOW (Yellow); Glucose,Urine (UA) Negative (Negative); Ketones,Urine Negative (Negative); Leukocyte Esterase,Urine Negative (Negative); Microscopic, Urine URINE MICROSCOPIC (MICROSCOPIC); PH,Urine 7.0 (5.0-8.5); Protein,Urine Negative (Negative); Specific Gravity, Urine 1.010 (1.005-1.030); Urobilinogen,Urine 0.2 EU/dl (0.2)
--- NOTE | 2024-08-31 21:51 | ED_ITS ---
Discharge Plan Disposition Patient Disposition: Home, Self-Care Condition: Good Prescriptions Prescriptions: No Action cephalexin 500 mg capsule 1,000 mg PO BID 7 Days Qty: 28 0RF ondansetron 4 mg tablet,disintegrating 4 mg PO Q8H PRN (Reason: nausea and vomiting) 4 Days Qty: 12 0RF Referrals Follow up/Referrals: Christine Bryan DO [Staff Physician, DESIGN TECHNOLOGY PROFESSOR] - See instructions Rajwinder Martínez DO [Staff Physician, DESIGN TECHNOLOGY PROFESSOR] - See instructions Jaya Karimi MD [Primary Care Provider, Internal Medicine] - See instructions Activity Restrictions/Add. Instructions Additional Instructions/Restrictions: You were evaluated in the emergency department today. It is common to have vaginal bleeding in the first trimester of . It can be completely normal, but heavy bleeding, painful bleeding, or passage of large clots can be signs of more serious problems, such as miscarriage or ectopic . Ectopic was ruled out on ultrasound. I recommend pelvic rest, which means no insertion of tampons, avoid sexual intercourse, avoid douching, and avoid vaginal insertion of any objects for 1 week or until you have been cleared by your OB. I recommend rest, so we have provided you with a work excuse. Avoid heavy lifting or strenuous activity until cleared by your OB. Please call your OB to help arrange very close follow-up for this. Return to the emergency department if you experience new or concerning symptoms, such as significant worsening of bleeding beyond that of a normal period, severe abdominal pain, lightheadedness, or passing out. Clinical Impressions Clinical Impression: Vaginal bleeding during Stand Alone Forms Stand Alone Forms: Work/School Release Instructions Patient Instructions: DI for Vaginal Bleeding During Print Language Print Language: Albanian Discharge ED Provider: Odalis Duenas General Adult HPI General Chief complaint: Vaginal Bleeding Stated complaint: light bleeding and pain on right side Time Seen by Provider: 08/31/24 21:27 Mode of Arrival: Ambulatory Source of Information: Patient Description of Symptoms (Recalled from ER Triage Doc. by RN): pt presents with c/o light vaginal bleeding that began today. Pt reports to being approx 9 weeks with LMP 06/27/24. Pt G11-P6. Pt reports only light bleeing noted on toilet paper when wiping with associated pain to RLQ that has stopped since coming here. Pt denies any other symptoms. History of Present Illness HPI narrative: This patient is a 29-year-old at estimated 9 weeks gestational age by last menstrual period 06/27/2024 presenting to the emergency department for evaluation with concern for light vaginal spotting that started just an hour prior to arrival. Patient states that she did exert himself a lot cleaning her house yesterday, but denies any recent intercourse, trauma, or other concerns. She also states she was having some mild discomfort in her right lower quadrant, but it resolved. She denies any fevers, chills, change in bowel movements, urinary symptoms, or other concerns. She has not yet had confirmatory ultrasound Related Data Previous Rx's ?Medication ?Instructions ?Recorded cephalexin 500 mg capsule 1,000 mg (2 x 500 mg) PO BID 7 03/30/24 days #28 caps ondansetron 4 mg disintegrating 4 mg PO Q8H PRN nausea and 07/27/24 tablet vomiting 4 days #12 tabs Allergies Allergy/AdvReac Type Severity Reaction Status Date / Time sulfamethoxazole (From Allergy Unknown Verified 06/20/21 11:21 Bactrim) trimethoprim (From Bactrim) Allergy Unknown Verified 06/20/21 11:21 PFSH PFSH Disclaimer: The information contained in this section may have been updated after the patient was seen, as this information can be updated by other users. Medical History Cervical radicular pain Anxiety Hypertension complicating in third trimester Smoking (tobacco) complicating , third trimester Encounter for induction of labor Anemia during in third trimester Pneumonia Social History Smoking Status: Current every day smoker tobacco type: cigarettes packs per day: 1 alcohol intake: current alcohol intake frequency: holidays/special occasions only substance use type: denies use current occupational status: unemployed Travel in the last 8 weeks?: None household members: family housing: house Have you lived/traveled outside US in past 30 days?: No Contact w/someone who lives/traveled outside US past 30 days?: No Exposure to someone with infectious disease in past 14 days?: No Do you have a fever (greater than 100.4 F or 38 C)?: No Have you tested positive for COVID-19?: No Exposed to someone with COVID-19 in past 14 days?: No Do you have a sore throat?: No Do you have a cough?: No Do you have any weakness?: No Do you have any diarrhea?: No Are you experiencing any unusual bleeding?: No Do you have any muscle aches/pain?: No Do you have any abdominal pain?: No Are you experiencing loss of taste or smell?: No Other Medical History Have you received the Flu Vaccine for this season: No Have you received the Pneumonia Vaccine: No ROS Obtained: Yes All systems reviewed & no additional complaints except as documented Physical Exam General General appearance: alert and in no apparent distress Head Head exam: atraumatic and normocephalic Eye Eye exam: Present normal appearance, PERRL and EOMI ENT ENT exam: Present normal exam, normal oropharynx, mucous membranes moist and normal external ear exam Neck Neck exam: Present normal inspection, full ROM and trachea midline; Absent tenderness Chest Chest inspection: Present normal inspection and symmetric chest wall rise; Absent tenderness Respiratory Respiratory exam: Present normal lung sounds bilaterally; Absent respiratory distress, wheezes, stridor or accessory muscle use Cardiovascular Cardiovascular exam: Present regular rate and normal rhythm Abdominal Exam Abdominal exam: Present soft; Absent distention, tenderness or guarding Extremities Exam Extremities exam: Present normal inspection, full ROM and normal capillary refill; Absent tenderness or edema Back Exam Back exam: Present normal inspection and full ROM; Absent tenderness Neurological Exam Neurological exam: Present alert, oriented X3, CN II-XII intact and normal gait; Absent motor sensory deficit Psychiatric Psychiatric exam: Present normal affect and normal mood Skin Skin exam: Present warm and dry Medical Decision Making Medical Records Medical records reviewed: Yes I reviewed the patient's medical records. Screening: Per USPSTF and CDC recommendations, given the prevalence of disease in our region, it is our hospital?s policy to screen for HIV and viral Hepatitis for all patients aged 18 and over and those with ongoing risk factors. Tal Inquiry Pt receiving controlled substance: No Vital Signs: 08/31/24 21:19 08/31/24 22:47 Temperature 98.8 F 97.9 F Temperature Source Oral Oral Pulse Rate 74 Pulse Rate [Radial] 98 H Respiratory Rate 14 16 Blood Pressure 128/74 Blood Pressure [Right Arm] 127/79 Blood Pressure Mean [Right Arm] 95 Blood Pressure Position Sitting Blood Pressure Position [Right Arm] Sitting 02 Sat by Pulse Oximetry 99 Oxygen Delivery Method Room Air Room Air Lab Data Lab results reviewed: Yes I reviewed the patient's lab results. Lab Results 08/31/24 21:21: Urine Color Yellow, Urine Appearance Clear, Urine pH 7.0, Ur Specific [place] 1.010, Urine Protein Negative, Urine Glucose (UA) Negative, Urine Ketones Negative, Urine Blood Negative, Urine Nitrate Negative, Urine Bilirubin Negative, Urine Urobilinogen 0.2, Ur Leukocyte Esterase Negative, Urine RBC Occasional, Urine WBC Occasional, Ur Squamous Epith Cells 5-10, Urine Bacteria 1+ 08/31/24 21:52: WBC 10.3, RBC 4.02 L, Hgb 12.7, Hct 36.0 L, MCV 89.6, MCH 31.6 H , MCHC 35.3, RDW 12.0, Plt Count 286, MPV 8.7, Neut % (Auto) 62.2, Lymph % (Auto) 32.0, [place] % (Auto) 4.0, Eos % (Auto) 1.2, Baso % (Auto) 0.3, Neut # (Auto) 6.4, Lymph # (Auto) 3.3, [place] # (Auto) 0.4, Eos # (Auto) 0.1, Baso # (Auto) 0.0, Sodium 138, Potassium 3.7, Chloride 105, Carbon Dioxide 23, Anion Gap 13.7, BUN 6 L, Creatinine 0.50 L, Estimated Creat Clear 119, Estimated GFR 146, Est GFR ( Amer) 177, Glucose 103 H, Calcium 10.1, Total Bilirubin 0.2, AST 23, ALT 24, Alkaline Phosphatase 50, Total Protein 7.1, Albumin 4.6, Globulin 2.5, Albumin/Globulin Ratio 1.8 08/31/24 21:52 08/31/24 21:52 Orders (Tests/Meds): ED MEDICATIONS Discontinued Medications Generic Name Dose Route Start Last Admin Trade Name Freq PRN Reason Stop Dose Admin Lactated Ringer's 1,000 mls @ 999 mls/hr 08/31/24 21:49 08/31/24 22:09 Lactated Ringer's 1000 Ml Bag IV 08/31/24 22:49 999 mls/hr .Q1H1M ONE Administration ORDERS Category Date Time Status POCUS Point of Care (ER Only) Stat Exams 08/31/24 21:29 Ordered Complete Blood Count Auto Diff Stat Lab 08/31/24 21:52 Completed Comprehensive Metabolic Panel Stat Lab 08/31/24 21:52 Results HCG,Quantitative Stat Lab 08/31/24 21:52 Results UA [Urinalysis and Microscopic] Stat Lab 08/31/24 21:21 Completed Medical Decision Narrative: In summary, this patient is a 29-year-old female presenting to the Emergency Department for evaluation of vaginal bleeding in the setting of . Differential diagnoses considered include but are not limited to threatened , missed , subchorionic hemorrhage, ectopic . Ruling out the most morbid conditions drove assessment. I reviewed patient's past medical records and noted evaluation here 07/27/2024 for abdominal pain in the setting of , at which point bedside ultrasound was unable to visualize . On exam, the patient is sitting upright in no acute distress with reassuring vitals on cardiac telemetry. Abdominal exam is benign. Workup included CBC, CMP with quantitative hCG, urinalysis, and bedside [id number] ultrasound. Ultrasound demonstrated a viable IUP with heart tones in the 160s and good movement. No free fluid present in the abdomen.. CBC is reassuring with no significant leukocytosis or anemia. Chemistry is also reassuring with normal kidney function, normal liver enzymes. Urinalysis is slightly continue with squamous cells but is not concerning for infection with negative nitrates, leukocyte esterase. There is trace bacteria in the setting of contamination with squamous cells. I do not feel that treating this is asymptomatic bacteriuria is indicated at this time given that the rest of the urinalysis is reassuring. I feel it is likely contamination. I feel she is appropriate for discharge home with close OB follow-up and instructions for pelvic rest. Strict return precautions given Procedures Limited Ultrasound Findings:: Limited OB ultrasound Indication: Positive test, vaginal bleeding, pelvic pain Identified structures: [-Uterus -Left adnexa -Right adnexa -Pouch of Juan] Findings: Uterus: Definitive IUP FHR: 169 Right adnexa: Normal Left adnexa: Normal [place] de sac: Free fluid Impression: -IUP: Present - heart rate: 169 -Ectopic : Absent -Free fluid: Absent Images were saved to permanent archive The study was technically adequate CPT Transabdominal: 08534-48 This study was performed by me, and I personally interpreted all images/videos. Based on my clinical judgement, these images were adequate and did not necessitate further imaging. Critical Care Critical Care Time Critical Care Time: No
[2024-08-31 21:57] LABS: Hematocrit 36.0 % (37.0-47.0); Hemoglobin 12.7 g/dL (12.2-16.2); Immature Granulocytes % 0.3 %; Mean Corpuscular HGB Conc 35.3 g/dL (31.8-35.4); Mean Corpuscular Hemoglobin 31.6 pg (27.0-31.2); Mean Corpuscular Volume 89.6 fl (81-99); Nucleated Red Blood Cells % 0 %; Platelet Count 286 K/mm3 (142-424); Red Blood Count 4.02 M/mm3 (4.20-5.40); Red Cell Distribution Width-SD 38.6 fL; White Blood Count 10.3 K/mm3 (4.8-10.8)
[2024-08-31 22:06] LABS: Alanine Aminotransferase 24 U/L (12-78); Albumin Level 4.6 g/dl (3.5-5.0); Albumin/Globulin Ratio 1.8 (1.1-1.8); Alkaline Phosphatase 50 U/L (38-126); Anion Gap 13.7 mEq/L (5-15); Aspartate Amino Transferase 23 U/L (14-36); Bilirubin,Total 0.2 mg/dl (0.2-1.3); Blood Urea Nitrogen 6 mg/dl (7-17); Calcium 10.1 mg/dl (8.4-10.2); Carbon Dioxide 23 mmol/L (22.0-30.0); Chloride 105 mmol/L (98-107); Creatinine Clearance Estimated 119 mL/min (50-200); Creatinine,Serum 0.50 mg/dl (0.52-1.04); Estimated Glomerular Filt Rate 146 ml/min (>60); GFR (African American) 177 ML/MIN (>60); Globulin 2.5 g/dL (1.3-3.2); Glucose 103 mg/dl (74-100); Potassium 3.7 mmoL/L (3.5-5.1); Sodium 138 mmol/L (136-145); Total Protein,Serum 7.1 g/dl (6.3-8.2)
[2024-08-31] MEDS: LACTATED RINGERS 1000ML 1,000 ML 999 ML IV (22:09)
--- NOTE | 2024-08-31 22:10 | PC.NURSE ---
pt ambulates with slow steady to restroom upon request.
[2024-08-31 22:21] LABS: Bacteria,Urine 1+ /lpf; RBC,Urine Occasional #/hpf (0-3); WBC,Urine Occasional #/hpf (0-3)
[2024-08-31 22:47] VITALS: BP 128/74; PULSE 74; RESP 16; TEMP 36.6; O2SAT 100
== END 2024-08-31 22:48 | disposition home or self-care (01) ==
PROVIDERS: Emergency Provider Emergency Medicine; PCP Internal Medicine Adolescent Medicine
DX: O20.9 Hemorrhage in early pregnancy, unspecified (principal); O99.331 Smoking (tobacco) complicating pregnancy, first trimester; Z3A.09 9 weeks gestation of pregnancy; F17.210 Nicotine dependence, cigarettes, uncomplicated
CPT/HCPCS: 80053; 81001; 84702; 85025; 96360; 99284; J7120

== ENCOUNTER 2024-10-10 18:06 | Outpatient (CLI) | payer OTHER, SELFPAY ==
--- OUTSIDE RECORDS SUMMARY | 2024-09-13 08:00 | XMS_ITS | Encounter Summary ---
Author Organization [facility] Address [address] [facility] [address] [place] [address] Care Team Providers Care Production Line Manager Name Role Phone Unavailable Primary Care Provider Unavailabl e Reason for Visit * Reason Comments Ultrasound * Imaging (Routine) - Closed Specialty Diagnoses / Procedures Referred By Contac t Referred To Contact Obstetrics and Gynecology Diagnoses Uncertain viability of Procedures US OB < 14 weeks single gestation Rajwinder Correia MD [address] [place] [address], [address] [place] [address] Phone: tel: fax: [facility] [address] [place], [place] [id number] Phone: tel: fax: Referral ID Status Reason Start Date Expiration Date Visits Re quested Visits Authorized [id number] Closed 08/25/2024 09/24/2025 1 1 Encounter Details Date Type Department Care Team (Latest Contact Info) Description 09/13/2024 8:00 AM EDT Ancillary Procedure [facility] [place] [address] Maryjane Schreiber MD [address] [place] [address], [address] [place] [address] Uncertain viability of [O36.80X0] (Primary Dx) Social History Tobacco Use Types Packs/Day Years Used Date Smoking Tobacco: Every Day Cigarettes Smokeless Tobacco: Never Alcohol Use Standard Drinks/Week Comments Not Currently 0 (1 standard drink = 0.6 oz pur e alcohol) Hunger Vital Sign Answer Date Recorded Within the past 12 months, y ou worried that your food would run out before you got the money to buy more. Never true 09/14/19 25 Within the past 12 months, t he food you bought just didn't last and you didn't have money to get more. Never true 09/13/2024 PRAPARE - Transportation Answer Date Re corded In the past 12 months, has l ack of transportation kept you from medical appointments or from getting medications? No 07/17 In the past 12 months, has l ack of transportation kept you from meetings, work, or from getting things needed for daily living? No 07/28/2024 Estimated Date of Delivery Comme nts Yes 04/03/2025 Based on last me nstrual period of 06/27/2024 (Approximate) Sex and Gender Information Value Date Recorded Sex Assigned at Not on file Legal Sex Female 10:51 AM EDT Gender Identity Not on file Sexual Orientation Not on file documented as of this encounter Plan of Treatment Upcoming Encounters Date Type Department Care Team (Late st Contact Info) Description 10/12/2024 12:30 PM EDT Routine [facility] - [facility] [address] [address] Chanel Albarran MD, PhD [address] [place] [address] [phone] 11/15/2024 10:30 AM EDT Ancillary Procedure [facility] [address] [place] [address] documented as of this encounter Procedures Procedure Name Priority Date/Time Associated Diagnosis Comments US OB < 14 WKS EARLY, SINGLE GEST Routine 09/13/2024 7:53 AM EDT Uncertain viability of documented in this encounter Results * US OB < 14 weeks single gestation (09/13/2024 7:53 AM EDT) Anatomical Region Laterality Modality Body Ultrasound 09/13/2024 7:53 AM EDT Narrative 09/13/2024 12:58 PM EDT Obstetrics Report Signed Final 09/13/2024 12:58 PM Patient Info ID: [id number] : 1995 (29 y)(F) Name: ORLY FLORIAN Date: 09/13/2024 7:53 AM Performed By Attending: Maryjane Schreiber MD Referred By: Rajwinder Correia MD Performed By: Clarice Alexandre RDMS Ref Address: [address] [place] [address] Exam Location:[facility] Service(s) Provided Code OB Complete < [id number] Indications 11 weeks gestation of with uncertain viability OB History : 10 Term: 6 SAB: 3 Livin Evaluation Number Of Fetuses: 1 Preg. Location: Intrauterine Yolk Sac: Visualized Pole: Visualized Heart Rate(bpm): 159 Cardiac Activity: Present Placenta Location: Seen Amniotic Fluid ELSA FV: Subjectively adequate 3.57 Gestational Age LMP: 11w 1d Date: 06/27/24 VIOLET: 04/03/25 Best: 11w 1d Det. By: LMP (06/27/24) VIOLET: 04/03/25 Biometry -------- CRL: 47 mm G.Age: 11w 4d VIOLET: 03/31/2025 Standard Anatomy Cranium: Seen Upper Extremities: Seen Heart: Seen Lower Extremities: Seen Abdomen: Seen Cervix Uterus Adnexa Right Ovary Not visualized Left Ovary Not visualized Adnexa No masses or fluid seen. Comments -------- Single IUP with cardiac activity seen on today's scan Pt has MD appt today Impression 1. Link intrauterine at 11w 1d with VIOLET of 04/03/2025 . 2. Normal cardiac activity with FHR 159 3. [place] rump length measuring 47mm . Recommendations Anatomy US recommended 18-22wks Additional recommendations: ANEUPLOIDY SCREENING is the standard of care for all obstetric patients. Consider Quad Screening, NIPT, and Anatomic Ultrasound for your patients as indicated. GENETIC CARRIER SCREENING for CF and SMA is recommended by both ACOG and ACMG. For more information please see ACOG co691. Alternatively, you could consider Expanded Carrier Screening. VACCINATION against tetanus, diphtheria, and pertussis (Tdap) is recommend after 20 weeks in every by both ACOG and the CDC. Yearly seasonal flu vaccine is recommended during flu season (November through June). COVID vaccine is recommended for all women, regardless of gestational age. DVT PROPHYLAXIS - careful attention to peripartum (eg SCDs) DVT prophylaxis. Thank you for allowing us to participate in the care of Ms. FLORIAN. If any further questions should arise please do not hesitate to contact us. Maryjane Schreiber MD Electronically Signed Final Report 09/13/2024 12:58 PM Procedure Note System, Provider Not In - 09/13/2024 Obstetrics Report Signed Final 512:58 PM Patient Info ID: [id number] : 1995 (29y)(F) Name: ORLY FLORIAN Date: 09/13/2024 7:53AM Performed By Attending: Maryjaen Schreiber MD Referred By: Jeff MORALES Performed By: Clarice Alexandre RDMS Ref Address: [address] [place] [address] Exam Location:[facility] Service(s) Provided Code OB Complete < [id number] Indications 11 weeks gestation of with uncertain viability OB History : 10 Term: 6 SAB: 3 Livin Evaluation Number Of Fetuses: 1 Preg. Location: Intrauterine Yolk Sac: Visualized Pole: Visualized Heart Rate(bpm): 159 Cardiac Activity: Present Placenta Location: Seen Amniotic Fluid ELSA FV: Subjectively adequate 3.57 Gestational Age LMP: 11w 1d Date: 06/27/24 VIOLET:04/03/25 Best: 11w 1d Det. By: LMP (06/27/24) VIOLET:04/03/25 Biometry -------- CRL: 47 mm G.Age: 11w 4d VIOLET:03/31/2025 Standard Anatomy Cranium: Seen Upper Extremities:Seen Heart: Seen Lower Extremities:Seen Abdomen: Seen Cervix Uterus Adnexa Right Ovary Not visualized Left Ovary Not visualized Adnexa No masses or fluid seen. Comments -------- Single IUP with cardiac activity seen on today's scan Pt has MD appt today Impression 1. Link intrauterine at 11w 1d with VIOLET of 04/03/2025 . 2. Normal cardiac activity with FHR 159 3. [place] rump length measuring 47mm . Recommendations Anatomy US recommended 18-22wks Additional recommendations: ANEUPLOIDY SCREENING is the standard of care for all obstetric patients.Consider Quad Screening, NIPT, and Anatomic Ultrasound for your patients asindicated. GENETIC CARRIER SCREENING for CF and SMA is recommended by both ACOG andACMG. For more information please see ACOG co691. Alternatively, you could considerExpanded Carrier Screening. VACCINATION against tetanus, diphtheria, and pertussis (Tdap) isrecommend after 20 weeks in every by both ACOG and the CDC. Yearly seasonal flu vaccine isrecommended during flu season (November through June). COVID vaccine is recommended for all women, regardless ofgestational age. DVT PROPHYLAXIS - careful attention to peripartum (eg SCDs) DVTprophylaxis. Thank you for allowing us to participate in the care of Ms. FLORIAN. Ifany further questions should arise please do not hesitate to contact us. 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
--- OUTSIDE RECORDS SUMMARY | 2024-09-13 08:30 | XMS_ITS | Encounter Summary ---
Author Organization [facility] Address [address] [facility] [address] [place] [address] Care Team Providers Care Mold Filler Plastic Dolls Name Role Phone Unavailable Primary Care Provider Unavailabl e Reason for Referral * Imaging (Routine) - Pending Review Specialty Diagnoses / Procedures Referred By Contac t Referred To Contact Obstetrics and Gynecology Diagnoses Past history of placenta accreta Procedures US OB 14+ weeks anatomy scan US OB detail anatomy Maggie Pena MD [address] [place] [address] [address] [place] [address] Phone: tel: fax: [facility] [address] [place] [address] Phone: tel: fax: Referral ID Status Reason Start Date Expiration Date V isits Requested Visits Authorized [id number] Pending Review 09/13/2024 10/13/2025 1 1 * Genetic Testing (Routine) - Closed Specialty Diagnoses / Procedures Referred By Contac t Referred To Contact Lab Diagnoses Past history of placenta accreta Genetic screening for disorder <Genetic disease carrier status, nonprocreative screening> Procedures QNATAL(R) ADVANCED Natalie Mays MD [address] [place] [address] Phone: tel: fax: [facility] - COVID Testing Site [address] [place] [address] Phone: tel: fax: Referral ID Status Reason Start Date Expiration Date Visits Re quested Visits Authorized [id number] Closed 09/13/2024 10/13/2025 1 1 Reason for Visit * Reason Comments Routine Visit Encounter Details Date Type Department Care Team (Late st Contact Info) Description 09/13/2024 8:30 AM EDT Initial [facility] [address] [facility] [address] [place] [address] Maggie Pena MD [address] [facility] [address] [place] [address] GA: 11w1d Social History Tobacco Use Types Packs/Day Years [...] on file documented as of this encounter Last Filed Vital Signs Vital Sign Reading Time Taken Comments Blood Pressure 121/77 09/13/2024 8:16 AM EDT Pulse - - Temperature - - Respiratory Rate - - Oxygen Saturation - - Inhaled Oxygen Concentration - - Weight 46.7 kg (103 lb) 09/13/2024 8:16 AM EDT Height - - Body Mass Index 20.12 07/28/2024 9:19 AM EDT documented in this encounter Progress Notes * Maggie Pena MD - 09/13/2024 8:30 AM EDT [facility] INITIAL OB VISIT NOTE Patient: Orly Florian Age: 29 y.o. Sex: female : 1995 Visit Date: 09/13/2024 Visit Type: OB Initial visit History of Present Illness: Orly Florian is a 29 y.o. at 11w1d (VIOLET 04/03/2025, by L=9) who presents for a initial visit She denies vaginal bleeding, leakage of fluid. Has not felt movements. She reports no uterine contractions. Reports nausea without vomiting. Has not needed to take medications. Pt seen at [facility] ED on 08/31/24 for light vaginal bleeding and RLQ pain. US performed wshowed viable IUP with heart tones Her is complicated by: History of gestational hypertension History of PreEclampsia (2018) Tobacco use in CS x3 Past with placenta accreta History of anemia in Anxiety GBS positive in previous History of recurrent loss Abnormal pap smear The following portions of the chart were reviewed this encounter and updated as appropriate: PMH: none PSH: Csx3, tonsillectomy, adenoidectomy OBHx: G1: 2012 Operative VD (forceps + episiotomy), female, 6lb 12oz G2: 2014 Operative VD (forceps + episiotomy), male 6lb 10oz, c/b nuchal cord G3: 2015 , female, 7lb 8oz G4: 2017 C/S, female 5lb 14oz, c/b PreE, failure to progress, GHTN, chorioamnionitis, PPH G5: 2018 IAB 10wk G6: 2019 SAB 8wk G7: 2019 SAB 4wk G8: 2020 SAB 4wk G9: 2021 C/S, female, 6lb 8oz, c/b placenta accreta G10: 4 C/S, female 7lb, c/b uterine inversion GynHx: pap 2020 NILM SH: denies etoh/illicits , smokes 1ppd x 12yrs FH: denies genetic abnormalities, bleeding/clotting disorders Aunt with cervical cancer ALL: Bactrim (itching) Meds: PNV OB History Para Term AB Living 10 6 6 3 6 SAB IAB Ectopic Multiple Live Births 2 1 6 # Outcome Date GA Lbr Kelvin/2nd Weight Sex Type Anes PTL Lv 10 Current 9 Term 04/29/23 39w4d 3318 g F CS-LTranv Spinal VERO Complications: Uterine inversion 8 Term 03/11/21 39w0d 2948 g F CS-LTranv Spinal N VERO Complications: Placenta accreta 7 SAB 09/2019 4w0d U 6 SAB 04/2019 8w0d U 5 IAB 10/2018 10w0d U 4 Term 09/18/17 39w0d 2665 g F CS-LTranv EPI N VERO Comments: Patient had blood transfusion after delivery Complications: Failure to Progress in First Stage, Placenta accreta, Failure to progress in labor, -induced hypertension 3 Term 10/25/15 39w0d 3402 g F Vag-Spont EPI N VERO 2 Term 04/11/14 39w0d 3005 g M Vag-Forceps EPI N VERO Complications: Forceps delivery - delivered 1 Term 10/05/12 40w0d 3062 g F Vag-Forceps EPI N VERO Complications: Forceps delivery - delivered Review of Systems: Pertinent items are noted in HPI. Physical Exam: Weight: 103 lb (46.7 kg) Expected Total Weight Gain: 25 lb (11.5 kg)-35 lb (16 kg) Pregravid BMI: 18.94 BP: 121/77 Physical Exam Constitutional: Appearance: Normal appearance. Genitourinary: Vulva normal. No vaginal discharge. Cardiovascular: Rate and Rhythm: Normal rate and regular rhythm. Pulmonary: Effort: Pulmonary effort is normal. Breath sounds: Normal breath sounds. Musculoskeletal: General: Normal range of motion. Neurological: General: No focal deficit present. Mental Status: She is alert and oriented to person, place, and time. Skin: General: Skin is warm and dry. Psychiatric: Mood and Affect: Mood normal. Behavior: Behavior normal. Vitals reviewed. Plan/Overview: : [place] Delivery Plans Planned delivery method: Post-Delivery Plans Feeding intentions: Breast Milk and Formula Assessment, Management and Plan: Problem List Items Addressed This Visit Past history of gestational hypertension - Primary Overview - 2018 GHTN, mild PreE on labetolol - Baseline P/C, CMP with CBC ordered at IOB visit 08/30 >08/31/24: Hgb 12.7 plt 286 AST/ALT: Cr 0.5 P/C pending - Initiate low dose aspirin at 12 weeks until delivery > rx sent 11 weeks gestation of Overview labs: Blood type: O+ (04/29/23) Ab screen: pending (09/13/24) Hgb: 12.7 (08/31/24) > pending (09/13/24) Plt: 286 (08/31/24) >pending (09/13/24) HIV: pending (09/13/24) Syph ab: pending (09/13/24) HBSag: pending (09/13/24) HCV: pending (09/13/24) GC: pending (09/13/24) CT: pending (09/13/24) Pap/HPV: 1hr: @ 24-28 wks 3hr: TBD GBS: @ 36 wks Pap: pending (09/13/24) Ucx: pending (09/13/24) Genetics: Qnatal pending (09/13/24) Ultrasound 08/31/24: IUP, +FHT 09/13/24: Dating US pending Anatomy scan: ordered 09/13/24 Immunizations: Rubella: Varicella: Immunization x2 in chart Tdap: @ 28 wks Flu: RSV: COVID: Previous section in , antepartum Overview - previous CD x 3 > 2018: 2/2 failure to progress > pt did not dilate past 4-5cm > 2021 > 2023 -In last CD 04/2023- Op Report from [facility] Dense adhesions were encountered between the subcutaneous tissue, fascia, underlying rectus muscles, and peritoneum. Uterine incision was low transverse. No extensions documented. Single layer closure Placenta was posterior and after delivery divot was noted in posterior uterine wall, hemostatic, not over-sewn. On closing: In order to restore some anatomy, a portion of the peritoneum, rectus, and fascia was brought back together using 1 Vicryl suture. Normal anatomy was restored. The fascia was closed with#1 PDS in a running fashion. Past history of placenta accreta Overview In 2018 at time of 1st CD (done for arrest of dilation) - Placenta was noted to be partially accreted but was able to be manually extracted (was cultured and came back positive gram+ cocci. Pt was on 24hr IV abx PP) - Placenta: lainer 450g 3VC, acute funisitis of one vessel 2021: operative report states placenta was removed in 2 pieces and required stitches in the posterior uterine wall for hemostasis. - MFM consult placed - Patient would like Hysterectomy, discussed at IOB visit Relevant Orders QNATAL(R) ADVANCED US OB detail anatomy care for patient with recurrent loss Overview 4x G5: 2019 IAB 10wk G6: 2020 SAB 8wk G7: 2020 SAB 4wk G8: 2020 SAB 4wk Tobacco use disorder complicating , childbirth, and the puerperium Overview daily tobacco use encourage cessation. Information on [place] Quitline If persistent use >1/2 PPD consider repeat growth 3rd trimester due to risk of growth restriction surveillance at 36 weeks due to risk stillbirth Positive cervical high risk HPV DNA test Overview -Pap 06/10/2023- NILM with +HR HPV, negative for 16/18 (In Care Everywhere, [facility]) -Repeat collected IOB 09/13/24 > pending Past history of hemorrhage Overview 2018: Hgb 7.9 on PPD1 and she was transfused with 2UpRBCs Other Visit Diagnoses Encounter for supervision of other normal , unspecified trimester Relevant Orders ABO/Rh Antibody screen Varicella zoster antibody, IgG Rubella antibody, IgG Screening for anemia Relevant Orders CBC Encounter for sexually transmitted infection screening Relevant Orders CHLAMYDIA TRACHOMATIS/NESSERIA GONORRHOEAE RNA, TMA Hepatitis B Surface Antigen, QL Syphilis Antibody - Cascading Reflex HIV-1 and HIV-2 Antibodies (Fourth Generation) Hemoglobinopathy screening test Relevant Orders Hemoglobinopathy evaluation Hepatitis C screening Relevant Orders HEPATITIS C AB W/REFL TO HCV RNA, QN, PCR Screening for asymptomatic bacteriuria Relevant Orders POCT MULTISTIX 10SG Urine culture Elevated blood-pressure reading without diagnosis of hypertension Relevant Orders Protein / creatinine ratio, urine Comprehensive metabolic panel Screening for malignant neoplasm of cervix Relevant Orders IMAGE-GUIDED PAP W/ AGE BASED SCR, W/ CT/NG ([id number]) screening for malformation Genetic screening for disorder <Genetic disease carrier status, nonprocreative screening> Relevant Orders QNATAL(R) ADVANCED Qnatal today, pending results. Anatomy US ordered. Reviewed practice, remaining care course, delivery hospital. Reviewed plan, patient requesting RCS with Hysterectomy Begin Araceli BID @ 12wk. PNV rx sent. GBS to be collected with 36 week labs MFM consult for placenta accreta placed. Follow up in 4 weeks for return OB visit. Maggie Pena MD [facility] 09/13/2024 Cosigned by Natalie Mays MD at 09/13/2024 10:20 AM EDT Associated attestation - Natalie Mays MD - 09/13/2024 10:20 AM EDT Attending Supervision Attestation: I personally saw and examined the patient on the date of resident/fellow evaluation listed on the note above. I have discussed the patient with the resident/fellow and agree with the resident/fellow's findings and treatment plan as written. (GC modifier) Natalie Mays MD 09/13/2024 29 y/o at 11w 1d here for her initial visit. PN labs ordered including carrier screening and NIPT per patient request (states she has not had carrier screening before). Discussed starting ASA at 12 weeks due to her history of GHTN and preeclampsia. She also gives a history of 3 deliveries with accreta. States it may have been a partial accreta. Op note from 04/2023 descri bes a cm divot in her myometrium posteriorly. This was hemostatic and not oversewn. She does not desire further pregnancies and is broaching the idea of hysterectomy. We discussed that with accreta that is definitive treatment, but with no accreta risk of hysterectomy is less when not . Will consult [facility] for assistance in monitoring for accreta and developing delivery plan. I agree with Dr. Pena's assessment and plan. Natalie Mays MD [facility] 09/13/2024 documented in this encounter Plan of Treatment Upcoming Encounters Date Type Department Care Team (Late st Contact Info) Description 10/12/2024 12:30 PM EDT Routine [facility] - [facility] [address] [id number] Chanel Albarran MD, PhD [address] [place] [phone] 11/15/2024 10:30 AM EDT Ancillary Procedure [facility] [address] [place], [place] [id number] Scheduled Orders Name Type Priority Associated Diagnoses Orde r Schedule Comprehensive metabolic panel Lab Routine Elevated blood-pressure reading without diagnosis of hypertension Ordered: 09/13/2024 US OB 14+ weeks anatomy scan Imaging Routine Past history of placenta accreta Expected: 09/13/2024, Expires: 09/13/2025 documented as of this encounter Procedures Procedure Name Priority Date/Time Associated Diagnosis Comments IMAGE-GUIDED PAP W/ AGE BASED SCR, W/ CT/NG ([id number]) Routine 09/13/2024 5:09 PM EDT Screening for malignant neoplasm of cervix CHLAMYDIA TRACHOMATIS/NESSERIA GONORRHOEAE RNA, TMA Routine 09/13/2024 4:59 PM EDT Encounter for sexually transmitted infection screening PROTEIN / CREATININE RATIO, URINE Routine 09/13/2024 4:55 PM EDT Elevated blood-pressure reading without diagnosis of hypertension URINE CULTURE Routine 09/13/2024 4:53 PM EDT Screening for asymptomatic bacteriuria POCT MULTISTIX 10SG Routine 09/13/2024 1 0:26 AM EDT Screening for asymptomatic bacteriuria QNATAL(R) ADVANCED Routine 09/13/2024 9: 49 AM EDT Past history of placenta accreta Genetic screening for disorder <Genetic disease carrier status, nonprocreative screening> HEPATITIS C AB W/REFL TO HCV RNA, QN, PCR Routine 09/13/2024 9:45 AM EDT Hepatitis C screening TREPONEMA PALLIDUM (SYPHILIS) ANTIBODY Routine 09/13/2024 9:45 AM EDT Encounter for sexually transmitted infection screening ABO/RH Routine 09/13/2024 9:45 AM EDT Encounter for supervision of other normal , unspecified trimester RUBELLA ANTIBODY, IGG Routine 09/13/2024 9:45 AM EDT Encounter for supervision of other normal , unspecified trimester HIV-1 AND HIV-2 ANTIBODIES Routine 09/13/2024 9:45 AM EDT Encounter for sexually transmitted infection screening HEPATITIS B SURFACE ANTIGEN, QL Routine 09/13/2024 9:45 AM EDT Encounter for sexually transmitted infection screening CBC NO DIFF (HEMOGRAM) Routine 9:45 AM EDT Screening for anemia HEMOGLOBINOPATHY EVALUATION Routine 09/13/2024 9:45 AM EDT Hemoglobinopathy screening test ANTIBODY SCREEN Routine 09/13/2024 9:45 AM EDT Encounter for supervision of other normal , unspecified trimester VARICELLA ZOSTER ANTIBODY, IGG Routine 09/13/2024 9:45 AM EDT Encounter for supervision of other normal , unspecified trimester documented in this encounter Results * IMAGE-GUIDED PAP W/ AGE BASED SCR, W/ CT/NG ([id number]) (09/13/2024 5:09 PM EDT) COMMENT [facility] Comment: This order for age-based cervical cancer and STI screening follows ACOG guidelines(PB 168, 140, BFS167). See individual assays for performing site location. Clinical Information [facility]ST Comment:None given LMP [facility] Comment:NONE GIVEN Pap [facility] Comment:NONE GIVEN Core Biopsy [facility] Comment:NONE GIVEN Source [facility]ST Comment:other Specimen Adequacy [facility] Comment: Satisfactory for evaluation. Endocervical/transformation zone component present. Age and/or menstrual status not provided Interpretation [facility] Comment: Cytology Results: Negative for intraepithelial lesion or malignancy. Comment [facility] Comment: This Pap test has been evaluated with the Crazy eCommercePrep(R) Imaging System. MARKET RESEARCH ASSISTANT [facility] Comment: SLM, CT(ASCP) CT Screening Location: [place] [address] [place] [address] CLIA: [id number] Slide preparation performed at: [facility], [address] [place] [address], [address] CLIA: [id number] COMMENT [facility] Comment: EXPLANATORY NOTE: The Pap is a screening test for cervical cancer. It is not a diagnostic test and is subject to false negative and false positive results. It is most reliable when a satisfactory sample, regularly obtained, is submitted with relevant clinical findings and history, and when the Pap result is evaluated along with historic and current clinical information. CHLAMYDIA TRACHOMATIS RNA TMA, UROGENITAL (REFL) NOT DETECTED NOT DETECTED [facility] N gonorrhoeae, DNA Probe NOT DETECTED NOT DETECTED [facility] COMMENT [facility] Comment: The analytical performance characteristics of this assay, when used to test SurePath(TM) specimens have been determined by [facility]. The modifications have not been cleared or approved by the FDA. This assay has been validated pursuant to the CLIA regulations and is used for clinical purposes. For additional information, please refer to https://education.Silicon Mitus.Scoutforce/faq/CVT982 (This link is being provided for information/ educational purposes only.) Swab Cervix uteri structure / Unknown 09/13/2024 5:09 PM EDT 09/14/2024 6:10 AM EDT Narrative Resulting Agency Comment Performing Organization Information: Site ID: [place] Name: [facility] Address: [address] [place] [phone] Director: Omkar Maxwell Site ID: [id number] [facility] Address: [address] [place] [address] Director: Jocelyn Lopez Natalie Mays MD LAB BLOOD ORDERABLES Final Resu lt Performing Organization Address [facility] Co de Phone Number [facility] [address] [place] [phone], * CHLAMYDIA TRACHOMATIS/NESSERIA GONORRHOEAE RNA, TMA (09/13/2024 4:59 PM EDT) CHLAMYDIA TRACHOMATIS RNA TMA, UROGENITAL (REFL) NOT DETECTED NOT DETECTED [facility] N gonorrhoeae, DNA Probe NOT DETECTED NOT DETECTED [facility] COMMENT [facility] Comment: The analytical performance characteristics of this assay, when used to test SurePath(TM) specimens have been determined by [facility]. The modifications have not been cleared or approved by the FDA. This assay has been validated pursuant to the CLIA regulations and is used for clinical purposes. For additional information, please refer to https://education.CayMay Education/faq/CAP755 (This link is being provided for information/ educational purposes only.) Swab Vaginal structure / Unknown 09/13/2024 4:59 PM EDT 09/13/2024 8:08 PM EDT Narrative Resulting Agency Comment Performing Organization Information: Site ID: [place] Name: [facility] Address: [address] [place] [phone] Director: Omkar Maxwell Natalie Mays MD LAB PATHOLOGY ORDERABLES Final Result Performing Organization Address [facility] Co de Phone Number [facility] [address] [place] [phone], * (ABNORMAL) Protein / creatinine ratio, urine (09/13/2024 4:55 PM EDT) Creatinine, Ur 15(L) 20 - 275 mg/dL [facility] Prot/Creat, Ur NOTE 24 - 184 mg/g creat [facility] Comment: THE PROTEIN VALUE IS LESS THAN 4 MG/DL THEREFORE WE ARE UNABLE TO CALCULATE EXCRETION AND/OR CREATININE RATIO. PROTEIN/CREATINI NE (MG/MG) IN URINE NOTE 0.024 - 0.184 mg/mg creat [facility] Protein, Ur <4(L) 5 - 24 mg/dL [facility] Comment: Verified by repeat analysis. Urine Urine specimen obtained by clean catch procedure / Unknown 09/13/2024 4:55 PM EDT 09/13/2024 8:11 PM EDT Narrative Resulting Agency Comment Performing Organization Information: Site ID: [facility] Address: [address] [place] [phone] Director: Omkar Maxwell us Natalie Mays MD LAB URINE ORDERABLES Final Resu lt Performing Organization Address [facility] Co de Phone Number [address] [address], * Urine culture (09/13/2024 4:53 PM EDT) Urine Culture SEE NOTE [facility] Comment: CULTURE, URINE, ROUTINE Micro Number: [id number] Test Status: Final Specimen Source: Urine Specimen Quality: Adequate Result: Mixed genital sebas isolated. These superficial bacteria are not indicative of a urinary tract infection. No further organism identification is warranted on this specimen. If clinically indicated, recollect clean-catch, mid-stream urine and transfer immediately to Urine Culture Transport Tube. Urine Urine specimen obtained by clean catch procedure / Unknown 09/13/2024 4:53 PM EDT 09/13/2024 8:05 PM EDT Narrative [facility] - 09/15/2024 5:26 AM EDT SPLIT 09/13/2024 FROM [id number] Resulting Agency Comment Performing Organization Information: Site ID: CB Name: [facility] Address: [address] [place] [phone] Director: Omkar Maxwell Natalie Mays MD LAB MICROBIOLOGY - [facility] Final Result Performing Organization Address [facility] Co de Phone Number [address] [address], * POCT MULTISTIX 10SG (09/13/2024 10:26 AM EDT) Glucose, UA Negative RELAYMED Bilirubin, UA Negative RELAYMED Ketones, UA Negative RELAYMED Spec Grav, UA 1.015 RELAYMED Blood, UA Negative RELAYMED pH, UA 8.0 RELAYMED Protein, UA Negative RELAYMED Urobilinogen, UA 0.2 E.U./dL RELAYMED Nitrite, UA Negative RELAYMED WBC, UA Negative RELAYMED Color, UA Yellow RELAYMED Clarity, UA Clear RELAYMED 09/13/2024 10:2 6 AM EDT 09/13/2024 10:26 AM EDT Narrative REL[facility]MED - 09/13/2024 10:26 AM EDT [id number] ([id number]), OBGYN Clinics - 410 Lot: [id number], Expiry: 2025-05-17 Riprap Placer: [place] us Natalie Mays MD LAB POINT OF CARE TEST MADINA MARIE ORDERABLES Final Result REL[facility] [address] [place] [address], * QNATAL(R) ADVANCED (09/13/2024 9:49 AM EDT) NUMBER OF FETUSES? 1 [facility] ADVANCED MATERNAL AGE? NO [facility] ABNORMAL MARIA DE JESUS NO [facility] ABNORMAL US? NO [facility] PERSONAL / FAM HISTORY? NO [facility] INTERPRETATION SEE NOTE [facility] Comment: This specimen showed an expected representation of chromosome 21, 18, and 13 material. See Limitations below. TRISOMY 21 (T21) Negative [facility] TRISOMY 18 (T18) Negative [facility] TRISOMY 13 (T13) Negative [facility] Y CHROMOSOME Not detected [facility] Y CHR. INTERPRETATION SEE NOTE [facility] Comment:Consistent with a fe male fetus. SEX CHROMOSOME No aneuploidy [facility] SEX CHROMOSOME INTERP SEE NOTE [facility] Comment: No apparent abnormality was detected. See Limitations below. MICRODELETION Not detected [facility] MICRODELETION INTERP SEE NOTE [facility] Comment: No apparent abnormality was detected. See Limitations below. GESTATIONAL AGE(IN WEEKS) 11 [facility] GESTATIONAL AGE (IN DAYS) 1 [facility] FRACTION 19.51% [facility] LABORATORY COMMENTS SEE NOTE [facility]ST Comment: Laboratory testing supervised and results monitored by Juancarlos Doran, Ph.D., FACMG, HCLD, CGMB. LIMITATIONS SEE NOTE QUEST Comment: QNatal(R) Advanced is a cell-free DNA screening test that screens for increased risk of certain chromosomal abnormalities that may cause defects, including Trisomy 21 (Down syndrome), Trisomy 18, Trisomy 13, and certain sex chromosome abnormalities (i.e., 45,X, 47,XXY, 47,XXX, and 47,XYY), as well as sex. In addition, if selected as an option, QNatal(R) Advanced can screen for certain microdeletions (i.e., 22q, 5p, 1p36, 15q, 11q, 8q, and 4p) that may cause defects. This test does not assess the risk of abnormalities such as neural tube defects or ventral wall defects and should not be considered in isolation from other clinical findings and laboratory test results. QNatal(R) Advanced has been validated in lanier pregnancies for the trisomies and sex chromosome abnormalities listed above, as well as for microdeletions, and for the determination of sex. Sex chromosome aneuploidy analysis is only performed in lanier pregnancies. This screening test has also been validated in twin pregnancies for the trisomies listed above and for microdeletions, but not for the sex chromosome abnormalities due to limited data. This screening test has not been validated in higher order pregnancies (more than two) because limited data is available. Sex chromosomal aneuploidy results issued for pregnancies confirmed to be of multiple gestations are not valid and should be disregarded. Microdeletion screening is limited to the specified microdeletion regions (see Methodology ). The Y chromosome is analyzed for the determination of sex. The sensitivity and specificity of sex determination analysis may be less than that of the Trisomy 21, 18, and 13 analysis and this determination can be confounded by vanishing twin syndrome in pregnancies that were originally multiple gestation pregnancies. It should be noted that QNatal(R) Advanced is a quantitative analysis of maternal and placental cfDNA. As a result, the accuracy of screening results may be affected by the presence of chromosome abnormalities or microdeletions that are maternal or confined placental in origin. SPECIFICATIONS SEE NOTE [facility] Comment: Sensitivity Specificity T21 >99.9% >99.9% T18 >99.9% >99.9% T13 >99.9% >99.9% Accuracy Y >99.9% Performance of the QNatal Advanced laboratory-developed test (LDT) has been determined based on internal analytical assessment. METHODOLOGY SEE NOTE [facility] Comment: Circulating cell-free (cf) DNA was isolated from plasma followed by detection on a massively parallel sequencing platform. Bioinformatic analysis was performed to determine the representation of chromosomes 21, 18, 13, X and Y in circulating cell-free DNA. The representation of sequences from the critical regions involved in 1p36 microdeletion syndrome (1p36), Schulz-Hirschhorn syndrome (4p), Cri-du-chat syndrome (5p), Selvin-Giedion syndrome (8q), Adeel syndrome (11q), Prader Willi syndrome/Angelman syndrome (15q), and DiGeorge syndrome (22q) is evaluated for the detection of microdeletions if requested. Performance characteristics refer to the analytical performance of this screening test. This screening test is performed pursuant to a license agreement with [employer]. QNatal Advanced is a laboratory developed test that has been developed and validated, pursuant to the Clinical Laboratory Improvements Amendments of 1988 (CLIA), and as such it has not been reviewed by FDA. Blood Venous blood specimen / Unknown 09/13/2024 9:49 AM EDT 09/13/2024 3:38 PM EDT Narrative [facility] - 09/19/2024 1:19 PM EDT SPLIT 09/13/2024 FROM [id number] MULTIPLE TESTING PRIORITIES; ROUTINE TESTING TO FOLLOW. Resulting Agency Comment Performing Organization Information: Site ID: [id number] Name: [facility], Address: [address] [place] [phone] Director: Daja Gross MD,PhD,ASAD us Natalie Mays MD LAB BLOOD ORDERABLES Final Resu lt [facility] [address] [place] [address], * HIV-1 and HIV-2 Antibodies (Fourth Generation) (09/13/2024 9:45 AM EDT) Pathologist [facility] HIV FINAL INTERPRETATION [facility] Comment: HIV Negative HIV-1 antigen and HIV-1/HIV-2 antibodies were not detected. There is no laboratory evidence of HIV infection. HIV-1/HIV-2 Ab NON-REACT KARLA NON-REACT KARLA [facility] Blood Venous blood specimen / Unknown 09/13/2024 9:45 AM EDT 09/13/2024 1:55 PM EDT Narrative [facility] - 09/15/2024 4:04 PM EDT MULTIPLE TESTING PRIORITIES; ROUTINE TESTING TO FOLLOW. Resulting Agency Comment Performing Organization Information: Site ID: Name: [facility] Address: [address] [place] [phone] Director: Omkar Maxwell Natalie Mays MD LAB BLOOD ORDERABLES Final Resu lt Performing Organization Address [facility] Co de Phone Number [facility] [address] [place] [phone], * Rubella antibody, IgG (09/13/2024 9:45 AM EDT) Rubella IgG Quant 1.20 Index [facility] Comment: Index Interpretation ----- <0.90 Not consistent with immunity 0.90-0.99 Equivocal > or = 1.00 Consistent with immunity The presence of rubella IgG antibody suggests immunization or past or current infection with rubella virus. Blood Venous blood specimen / Unknown 09/13/2024 9:45 AM EDT 09/13/2024 1:55 PM EDT Narrative [facility] - 09/15/2024 4:04 PM EDT MULTIPLE TESTING PRIORITIES; ROUTINE TESTING TO FOLLOW. Resulting Agency Comment Performing Organization Information: Site ID: [id number] Name: [facility] Address: [address] [place] [phone] Director: Omkar Maxwell Natalie Mays MD LAB BLOOD ORDERABLES Final Resu lt Performing Organization Address [facility] Co de Phone Number [facility] [address] [place] [phone], [place] * Syphilis Antibody - Cascading Reflex (09/13/2024 9:45 AM EDT) T. PALLIDUM AB NEGATIVE NEGATIVE [facility] Comment: No antibodies to T. pallidum (the agent causing syphilis) were detected in the specimen. This result, however, does not exclude very recent T. pallidum infection; testing of a second specimen, collected 2-4 weeks after this specimen, is recommended if the index of suspicion for recent infection is high. Blood Venous blood specimen / Unknown 09/13/2024 9:45 AM EDT 09/13/2024 1:55 PM EDT Narrative [facility] - 09/15/2024 4:04 PM EDT MULTIPLE TESTING PRIORITIES; ROUTINE TESTING TO FOLLOW. Resulting Agency Comment Performing Organization Information: Site ID: [id number] Name: [facility] Address: [address] [place] [phone] Director: Omkar Maxwell Natalie Mays MD LAB BLOOD ORDERABLES Final Resu lt [facility] [address] [place] [address], * Varicella zoster antibody, IgG (09/13/2024 9:45 AM EDT) [facility] Varicella IgG 3.31 S/CO [facility] Comment: Signal to Cut-off S/CO Interpretation --------- <1.00 Negative - Antibody not detected > or = 1.00 Positive - Antibody detected A positive result indicates that the patient has antibody to VZV but does not differentiate between an active or past infection. The clinical diagnosis must be interpreted in conjunction with the clinical signs and symptoms of the patient. This assay reliably measures immunity due to previous infection but may not be sensitive enough to detect antibodies induced by vaccination. Thus, a negative result in a vaccinated individual does not necessarily indicate susceptibility to VZV infection. A more sensitive test for vaccination-induced immunity is Varicella Zoster Virus Antibody Immunity Screen, ACIF. Blood Venous blood specimen / Unknown 09/13/2024 9:45 AM EDT 09/13/2024 1:55 PM EDT Narrative [facility] - 09/15/2024 4:04 PM EDT MULTIPLE TESTING PRIORITIES; ROUTINE TESTING TO FOLLOW. Resulting Agency Comment Performing Organization Information: Site ID: [id number] Name: [facility] Address: [address] [place] [phone] Director: Omkar Maxwell us Natalie Mays MD LAB BLOOD ORDERABLES Final Resu lt Performing Organization Address [facility] Co de Phone Number [address] [phone], * HEPATITIS C AB W/REFL TO HCV RNA, QN, PCR (09/13/2024 9:45 AM EDT) Hep C Virus Ab NON-REACTI VE NON-REACT KARLA [facility] Comment: HCV antibody was non-reactive. There is no laboratory evidence of HCV infection. In most cases, no further action is required. However, if recent HCV exposure is suspected, a test for HCV RNA (test code 91959) is suggested. For additional information please refer to http://[employer]/faq/OCE62a6 (This link is being provided for informational/ educational purposes only.) Blood Venous blood specimen / Unknown 09/13/2024 9:45 AM EDT 09/13/2024 1:55 PM EDT Narrative [facility] - 09/15/2024 4:04 PM EDT MULTIPLE TESTING PRIORITIES; ROUTINE TESTING TO FOLLOW. Resulting Agency Comment Performing Organization Information: Site ID: [id number] Name: [facility] Address: [address] [place] [phone] Director: Omkar Maxwell us Natalie Mays MD LAB BLOOD ORDERABLES Final Resu Performing Organization Address [facility] Co de Phone Number [address] [phone], * Hepatitis B Surface Antigen, QL (09/13/2024 9:45 AM EDT) Hepatitis B Surface Ag NON-REACTI VE NON-REACTI VE [facility] Comment: For additional information, please refer to http://[employer] Education/faq/LBW501 (This link is being provided for informational/ educational purposes only.) Blood Venous blood specimen / Unknown 09/13/2024 9:45 AM EDT 09/13/2024 1:55 PM EDT Narrative [facility] - 09/15/2024 4:04 PM EDT MULTIPLE TESTING PRIORITIES; ROUTINE TESTING TO FOLLOW. Resulting Agency Comment Performing Organization Information: Site ID: [id number] Name: [facility] Address: [address] [place] [phone] Director: Omkar Maxwell Natalie Mays MD LAB BLOOD ORDERABLES Final Resu lt Performing Organization Address City/[facility] Co de Phone Number [address] * Hemoglobinopathy evaluation (09/13/2024 9:45 AM EDT) RBC 4.31 3.80 - 5.10 Million/uL [facility] Hemoglobin 13.5 11.7 - 15.5 g/dL [facility] Hematocrit 42.0 35.0 - 45.0 % [facility] MCV 97.4 80.0 - 100.0 fL [facility] MCH 31.3 27.0 - 33.0 pg [facility] RDW 12.8 11.0 - 15.0 % [facility] HEMOGLOBIN A 97.2 >96.0 % [facility] Hgb F Quant <1.0 <2.0 % [facility] Hgb A2 Quant 2.8 2.0 - 3.2 % [facility] INTERPRETATION [facility] Comment: Normal phenotype. Normal hemoglobin distribution, no HgS, HgC or other abnormal hemoglobin observed. Blood Venous blood specimen / Unknown 09/13/2024 9:45 AM EDT 09/13/2024 1:55 PM EDT Narrative [facility] - 09/15/2024 4:04 PM EDT MULTIPLE TESTING PRIORITIES; ROUTINE TESTING TO FOLLOW. Resulting Agency Comment Performing Organization Information: Site ID: Name: [facility] Address: [address] [place] [phone] Director: Omkar Maxwell Natalie Mays MD LAB BLOOD ORDERABLES Final Resu lt Performing Organization Address [facility] Co de Phone Number [address] * CBC (09/13/2024 9:45 AM EDT) WHITE BLOOD CELL COUNT 8.7 3.8 - 10.8 K/uL [facility] RED BLOOD CELL COUNT 4.3 3.8 - 5.1 x10(6)/uL [facility] HEMOGLOBIN 13.5 12.0 - 16.0 ZZ [facility] HEMATOCRIT 39.7 35.0 - 45.0 % [facility] MCV 92.5 79.4 - 94.8 pg [facility] MCH 31.5 25.6 - 32.2 pg [facility] MCHC 34.1 32.3 - 36.5 Gram/dL [facility] RDW 13.2 11.0 - 15.0 % [facility] PLATELET COUNT 287 140 - 420 x10(3)/uL [facility] Blood Venous blood specimen / Unknown 09/13/2024 9:45 AM EDT 09/13/2024 1:55 PM EDT Narrative [facility] - 09/15/2024 4:04 PM EDT MULTIPLE TESTING PRIORITIES; ROUTINE TESTING TO FOLLOW. Resulting Agency Comment Performing Organization Information: Site ID: OMAR Name: [facility] Address: [address] [place] [phone] Director: Dr. Gui Weber Natalie Mays MD LAB BLOOD ORDERABLES Final Resu lt [facility] [address] [place] [address], * Antibody screen (09/13/2024 9:45 AM EDT) Pathologist [facility] Antibody Screen NO ANTIBODIES DETECTED [facility] Comment: Reference range No antibodies detected This assay is a screening test for the detection of red blood cell antibodies. The test is not to be used for pretransfusion screening or for the medical management of an alloimmunized . Blood Venous blood specimen / Unknown 09/13/2024 9:45 AM EDT 09/13/2024 1:55 PM EDT Narrative [facility] - 09/15/2024 4:04 PM EDT MULTIPLE TESTING PRIORITIES; ROUTINE TESTING TO FOLLOW. Resulting Agency Comment Performing Organization Information: Site ID: CB Name: [facility] Address: [address] [place] [phone] Director: Omkar Maxwell Natalie Mays MD LAB BLOOD BANK TEST ORDERABLES Final Result Performing Organization Address [facility] Co de Phone Number [facility] [address] [place] [address], * ABO/Rh (09/13/2024 9:45 AM EDT) ABORh O POS [facility] Blood Venous blood specimen / Unknown 09/13/2024 9:45 AM EDT 09/13/2024 1:55 PM EDT Narrative [facility] - 09/15/2024 4:04 PM EDT MULTIPLE TESTING PRIORITIES; ROUTINE TESTING TO FOLLOW. Resulting Agency Comment Performing Organization Information: Site ID: OMAR Name: [facility] Address: [address] [place] [phone] Director: Dr. Gui Weber Natalie Mays MD LAB BLOOD BANK TEST ORDERABLES Final Result Performing Organization Address [facility] de Phone Number [facility] [address] [place] [address], documented in this encounter Visit Diagnoses Diagnosis Past history of gestational hypertension- Primary 11 weeks gestation of Past history of placenta accreta Positive cervical high risk HPV DNA test Smoking (tobacco) complicating , unspecified trimester Maternal care for low transverse scar from previous delivery care for patient with recurrent loss, unspecified trimester Past history of hemorrhage Encounter for supervision of other normal , unspecified trimester Screening for anemia Encounter for sexually transmitted infection screening Hemoglobinopathy screening test Hepatitis C screening Screening for asymptomatic bacteriuria Elevated blood-pressure reading without diagnosis of hypertension Screening for malignant neoplasm of cervix screening for malformation Genetic screening for disorder <Genetic disease carrier status, nonprocreative screening> 15 weeks gestation of - Primary Past history of gestational hypertension Maternal care for low transverse scar from previous delivery 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
[2024-10-10 23:14] LABS: Coronavirus 19, PCR Not Detected (NotDetected); Influenza A, PCR Not Detected (NotDetected); Influenza B, PCR Not Detected (NotDetected)
--- OUTSIDE RECORDS SUMMARY | 2024-10-12 11:26 | XMS_ITS | Encounter Summary ---
Author Organization [facility] Address [address] [place] [address] Care Team Providers Care Vb Net Programmer Name Role Phone Unavailable Primary Care Provider Unavailabl e Encounter Details Date Type Department Care Team (Late st Contact Info) Description 10/11/2024 Telephone [facility] [address] [place] [address] Pcp, None Social History Tobacco Use Types Packs/Day Years [...] 12:30 PM EDT Routine [facility] - COMPOSITOR APPRENTICE & Women's Health - [facility] [address] [address] Chanel Albarran MD, PhD [address] [place] [address] 11/15/2024 10:30 AM EDT Ancillary Procedure [facility] - COMPOSITOR APPRENTICE [facility] [address] [place] [address] documented as of this encounter Visit Diagnoses Not on filedocumented in this encounter
--- OUTSIDE RECORDS SUMMARY | 2024-10-12 11:26 | XMS_ITS | Encounter Summary ---
Author Organization [facility] Address [address] [place] [address] Care Team Providers Care Mandrel Maker Name Role Phone Unavailable Primary Care Provider Unavailabl e Encounter Details Date Type Department Care Team (Late st Contact Info) Description 09/21/2024 Results Follow-Up [facility] - RADIOLOGIC TECHNOLOGIST MAMMOGRAM & Women's Health [address] [facility] [address] [place] [address] Maggie Pena MD [address] [facility] [address] [place] [address] QNATAL(R) ADVANCED Social History Tobacco Use Types Packs/Day Years [...] 12:30 PM EDT Routine [facility] - RADIOLOGIC TECHNOLOGIST MAMMOGRAM & Women's Health - [facility] [address] [phone] Chanel Albarran MD, PhD [address] [place] [phone] 11/15/2024 10:30 AM EDT Ancillary Procedure [facility] - RADIOLOGIC TECHNOLOGIST MAMMOGRAM & [facility] [address] [place] [phone] documented as of this encounter Visit Diagnoses Not on filedocumented in this encounter
--- OUTSIDE RECORDS SUMMARY | 2024-10-12 11:26 | XMS_ITS | Encounter Summary ---
Author Organization [facility] Address [address] [place] [address] Care Team Providers Care Vice President Of Recruiting Name Role Phone Unavailable Primary Care Provider Unavailabl e Encounter Details Date Type Department Care Team (Latest Contact Info) Description 10/05/2024 Travel Social History Tobacco Use Types Packs/Day Years [...] Encounters Date Type Department Care Team (Late Contact Info) Description 10/12/2024 12:30 PM EDT Routine [facility] - LINUX SUPPORT ENGINEER & Women's Health - [facility] [address] [address] Chanel Albarran MD, PhD [address] [place] [address] 11/15/2024 10:30 AM EDT Ancillary Procedure [facility] - LINUX SUPPORT ENGINEER & Women's Health [address] [place] [address] documented as of this encounter Visit Diagnoses Not on filedocumented in this encounter
--- OUTSIDE RECORDS SUMMARY | 2024-10-12 11:27 | XMS_ITS | Encounter Summary ---
Author Organization [facility] Address [address] [place] [address] Care Team Providers Care Health And Safety Inspector Name Role Phone Unavailable Primary Care Provider Unavailabl e Encounter Details Date Type Department Care Team (Latest Contact Info) Description 09/07/2024 Travel Social History Tobacco Use Types Packs/Day [...] the money to buy more. Never true 07/29/19 25 Within the past 12 months, t he food you bought just didn't last and you didn't have money to get more. Never true 07/28/2024 PRAPARE - Transportation Answer Date Re corded [...] 12:30 PM EDT Routine [facility] - PASSENGER CAR INSPECTOR & Women's Health - [facility] [address] [address] Chanel Albarran MD, PhD [address] [place] [phone] 11/15/2024 10:30 AM EDT Ancillary Procedure [facility] - PASSENGER CAR INSPECTOR & Women's Health [address] [place] [address] documented as of this encounter Visit Diagnoses Not on filedocumented in this encounter
--- OUTSIDE RECORDS SUMMARY | 2024-10-12 11:27 | XMS_ITS | Encounter Summary ---
Author Organization [facility] Address [address] [place] [address] Care Team Providers Care Independent Sales Representative Name Role Phone Unavailable Primary Care Provider Unavailabl e Encounter Details Date Type Department Care Team (Late st Contact Info) Description 09/06/2024 Telephone [facility] - DISCHARGE COORDINATOR & Women's Health [address] [place] [address] Brianna Forte MA Social History Tobacco Use Types Packs/Day Years [...] on file documented as of this encounter Miscellaneous Notes * Telephone Encounter - Brianna Forte MA - 09/06/2024 1:24 PM EDT Fax sent over to [facility] for records request of ER notes/ imaging/ labs from 08/31. documented in this encounter Plan of Treatment Upcoming Encounters Date Type Department Care Team (Late st Contact Info) Description 10/12/2024 12:30 PM EDT Routine [facility] - DISCHARGE COORDINATOR & Women's Health - [facility] [address] [address] Chanel Albarran MD, PhD [address] [place] [phone] 11/15/2024 10:30 AM EDT Ancillary Procedure [facility] - DISCHARGE COORDINATOR & Women's Health [address] [place] [address] documented as of this encounter Visit Diagnoses Not on filedocumented in this encounter
--- OUTSIDE RECORDS SUMMARY | 2024-10-12 11:27 | XMS_ITS | Encounter Summary ---
Author Organization [facility] Address [address] [place] [address] Care Team Providers Care Range Feeder Name Role Phone Unavailable Primary Care Provider Unavailabl e Encounter Details Date Type Department Care Team (Latest Contact Info) Description 08/29/2024 Travel Social History Tobacco Use Types Packs/Day [...] 12:30 PM EDT Routine [facility] - YARD ENGINEER & Women's Health - [facility] [address] [address] Chanel Albarran MD, PhD [address] [place] [phone] 11/15/2024 10:30 AM EDT Ancillary Procedure [facility] - YARD ENGINEER & Women's Health [address] [place] [address] documented as of this encounter Visit Diagnoses Not on filedocumented in this encounter
--- OUTSIDE RECORDS SUMMARY | 2024-10-12 11:27 | XMS_ITS | Encounter Summary ---
Author Organization [facility] Address [address] [place] [address] Care Team Providers Care Engagement Liaison Name Role Phone Unavailable Primary Care Provider Unavailabl e Encounter Details Date Type Department Care Team (Latest Contact Info) Description 08/23/2024 Travel Social History Tobacco Use Types Packs/Day [...] 12:30 PM EDT Routine [facility] - LENS MAKER & Women's Health - [facility] [address] [address] Chanel Albarran MD, PhD [address] [place] [phone] 11/15/2024 10:30 AM EDT Ancillary Procedure [facility] - LENS MAKER & Women's Health [address] [place] [address] documented as of this encounter Visit Diagnoses Not on filedocumented in this encounter
--- OUTSIDE RECORDS SUMMARY | 2024-10-12 11:27 | XMS_ITS | Clinical Summary ---
Author Organization [facility] Address [address] [place] [address] Care Team Providers Care Tool And Die Engineer Name Role Phone Unavailable Primary Care Provider Unavailabl e Allergies Active Allergy Reactions Criticality Noted Date Comments Sulfamethoxazole-Trimethoprim Itching Low 2020 Medications aspirin 81 MG chewable tablet Chew 81 mg in the morning and 81 mg in the evening. Active Vit-Fe Fumarate-FA ( Vitamin Plus Low Iron) 27-1 MG tabletIndicatio ns:,Pr egnancy Take 1 tablet by mouth in the morning for 30 days. Indications: , 30 tablet 11 10/14/19 25 Active Hospital, Clinic, or Other Facility Administered Medication Ordered Dose Route Frequency Start Date End Date Status aspirin chewable tablet 81 mgIndications:Past history of gestational hypertension 81 mg PO 2 times daily 09/20/2024 Active Active Problems Problem Noted Date Diagnosed Date Past history of hemorrhage 09/12/2024 Overview (09/12/2024): 2018: Hgb 7.9 on PPD1 and she was transfused with 2UpRBCs Previous section in , antepart um 08/29/2024 Overview (09/12/2024): - previous CD x 3 > 2018: 2/2 failure to progress > pt did not dilate past 4-5cm > 2021 > 2023 -In last CD 04/2023- Op Report from [facility] in [facility] Dense adhesions were encountered between the subcutaneous [...] anatomy was restored. The fascia was closed with #1 PDS in a running fashion. Past history of placenta accreta 08/29 Overview (09/13/2024): In 2018 at time of 1st CD (done for arrest of dilation) - Placenta was noted to be partially accreted but was able to be manually extracted (was cultured and came back positive gram+ cocci. Pt was on 24hr IV abx PP) - Placenta: lanier 450g 3VC, acute funisitis of one vessel 2021: operative report states placenta was removed in 2 pieces and required stitches in the posterior uterine wall for hemostasis. 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 Information on [place] Quitline If persistent use >1/2 PPD consider repeat growth 3rd trimester due to risk of growth restriction surveillance at 36 weeks due to risk stillbirth Positive cervical high risk HPV DNA test 025 Overview (10/11/2024): -Pap 06/10/2023- NILM with +HR HPV, negative for 16/18 (In Care Everywhere, [facility]) -Repeat collected IOB 09/13/24 > NILM (HPV did not reflex 2/2 age) Past history of gestational hypertensi on 09/26/2022 Overview (10/11/2024): - 2018 GHTN, mild PreE on labetolol - Baseline P/C, CMP with CBC ordered at IOB visit 08/30 >08/31/24: Hgb 12.7 plt 286 AST/ALT: Cr 0.5 P/C unable to calculate (protein too low) - Initiate low dose aspirin at 12 weeks until delivery > rx sent 15 weeks gestation of 11/06/2020 Overview (10/11/2024): labs: Blood type: O+ (04/29/23) Ab screen: neg (09/13/24) Hgb: 12.7 (08/31/24) > 13.5 (09/13/24) Plt: 286 (08/31/24) >287 (09/13/24) HIV: NR (09/13/24) Syph ab: neg (09/13/24) HBSag: NR (09/13/24) HCV: NR (09/13/24) GC: neg (09/13/24) CT: neg (09/13/24) 1hr: @ 24-28 wks 3hr: TBD GBS: @ 36 wks Pap: NILM (09/13/24) Ucx: neg (09/13/24) Genetics: Qnatal - low-risk F Ultrasound 08/31/24: IUP, +FHT. Dating by L=9 09/13/24: IUP with FHR 159bpm. CRL 47mm, consistent with 11w1d, which matches LMP and previous dating. Anatomy scan: ordered 09/13/24 Immunizations: Rubella: immune Varicella: Immunization x2 in chart Tdap: @ 28 wks Flu: when in season RSV: when in season Estimated Date of Delivery Comme nts Yes 04/03/2025 Based on last me nstrual period of 06/27/2024 (Approximate) Resolved Problems Problem Noted Date Diagnosed Date Resolved Date Lesion of skin of breast 06/10/2023 Encounters Date Type Department Care Team Description 10/11/2024 Telephone [facility] [address] [place] [address], 3rd [place] [address] Pcp, None 10/05/2024 Travel 09/21/2024 Results Follow-Up [facility] [address] [address] Maggie Pena MD QNATAL(R) ADVANCED 09/13/2024 8:30 AM EDT Initial [facility] [address] [address] Maggie Pena MD [place]: 11w1d 09/13/2024 8:00 AM EDT Ancillary Procedure [facility] [address] [place] [address] Maryjane Schreiber MD Uncertain viability of [O36.80X0] (Primary Dx) 09/13/2024 Travel 09/07/2024 Travel 09/06/2024 Telephone [facility] [address] [address] Brianna Forte MA 09/02/2024 Telephone [facility] [address] [address] Brianna Forte MA 08/31/2024 Telephone [facility] [address] [address] Cari Gatica, VINCE 08/30/2024 Telephone [facility] [address] [place] [address] Rajwinder Correia MD 08/29/2024 Travel 08/23/2024 Travel 07/28/2024 9:00 AM EDT Procedure Visit [facility] [address] [address] Encounter for supervision of other normal , unspecified trimester (Primary Dx) 07/27/2024 Travel from Last 3 Months Immunizations Immunization Administration Dates Next Due DTP / HiB 1995,1995 DTaP, Unspecified 02/21/1999,09/12/1996 HPV, Quadrivalent 09/08/2006 IPV 02/21/1999 Influenza, quadrivalent PF ( fluarix, Afluria, Flulaval, Fluzone) 11/21/2022 Influenza, seasonal, injectable 11/11/2012 MMR 02/21/1999,09/12/1996 Meningococcal MCV4, Unspecified 09/08/2006 OPV 1995,1995 Tdap 03/04/2023,09/08/2006 Varicella 09/08/2006,09/12/1996 hiB, unspecified 09/12/1996 Family History Medical History Relation Name Comments No Known Problems Brother No Known Problems Daughter Hypertension Father Atrial fibrillation Maternal Grandmother Hypertension Maternal Grandmother COPD Mother Pancreatitis Mother No Known Problems Mother's Brother No Known Problems Mother's Sister Diabetes Paternal Grandfather Hypertension Paternal Grandfather Alzheimer's disease Paternal Grandmother Diabetes Paternal Grandmother Hypertension Paternal Grandmother No Known Problems Sister No Known Problems Son Relation Name Status Comments Brother Daughter Father Alive Father's Brother Unknown Father's Sister Unknown Maternal Grandfather Unknown Maternal Grandmother Mother Alive Mother's Brother Mother's Sister Paternal Grandfather Alive Paternal Grandmother Alive Sister Son Social History Tobacco Use Types Packs/Day Years Used Date Smoking Tobacco: Every Day Cigarettes Smokeless Tobacco: Never Tobacco Cessation:Ready to Q uit: Not Asked; Counseling Given: Not Answered Alcohol Use Standard Drinks/Week Comments Not Currently [...] on file Sexual Orientation Not on file Last Filed Vital Signs Vital Sign Reading Time Taken Comments Blood Pressure 121/77 09/13/2024 8:16 AM EDT Pulse - - Temperature - - Respiratory Rate - - Oxygen Saturation - - Inhaled Oxygen Concentration - - Weight 46.7 kg (103 lb) 09/13/2024 8:16 AM EDT Height 152.4 cm (5') 07/28/2024 9:19 AM EDT Body Mass Index 20.12 07/28/2024 9:19 AM EDT Plan of Treatment Upcoming Encounters Date Type Department Care Team (Late st Contact Info) Description 10/12/2024 12:30 PM EDT Routine [facility] - [facility] [address] [address] Chanel Albarran MD, PhD [address] [place] [address] 11/15/2024 10:30 AM EDT Ancillary Procedure [facility] [address] [place] [address] Health Maintenance Due Date Last Done Comments Lipid Panel 1995 HPV Vaccines (2 - 2-dose series) 03/11/2007 09/08/2006 Hepatitis B Screening 2013 Hepatitis B Vaccines (1 of 3 - 19+ 3-dose series) 2014 Pneumococcal Vaccine (1 of 2 - PCV) 2014 COVID-19 Vaccine (1 - season) 2023 Depression Risk Screening 02/17/2024 SDOH Screening 02/17/2024 Influenza Vaccine (#1) 2024 11/21/2022, 2012 Pap Smear 09/14/2027 09/13/2024 DTaP/Tdap/Td Vaccines (7 - Td or Tdap) 03/04/2033 03/04/2023, 09/08/2006, 02/21/1999, Additional history exists Zoster Vaccines (1 of 2) 2045 09/08/2006, 08/17 HIB Vaccines Completed 09/12/1996, 05/17, 1995 IPV Vaccines Completed 02/21/1999, 05/17, 1995 MMR Vaccines Completed 02/21/1999, 09/12/1996 Meningococcal Vaccine Aged Out 09/08/2006 No sabrina juan jose eligible based on patient's age to complete this topic Varicella Vaccines Completed 09/08/2006, 09/12/1996 HIV Screening Completed 09/13/2024 Hepatitis C Screening Completed 09/13/2024 Hepatitis A Vaccines Aged Out No long er eligible based on patient's age to complete this topic Meningococcal B Vaccine Aged Out No l onger eligible based on patient's age to complete this topic Rotavirus Vaccines Aged Out No longer eligible based on patient's age to complete this topic Procedures Procedure Name Priority Date/Time Associated Diagnosis Comments IMAGE-GUIDED PAP W/ AGE BASED SCR, W/ CT/NG ([id number]) Routine 09/13/2024 5:09 PM EDT Screening for [...] disorder <Genetic disease carrier status, nonprocreative screening> HIV-1 AND HIV-2 ANTIBODIES Routine 09/13/2024 9:45 AM EDT Encounter for sexually transmitted infection screening RUBELLA ANTIBODY, IGG Routine 09/13/2024 9:45 AM EDT Encounter for supervision of other normal , unspecified trimester TREPONEMA PALLIDUM (SYPHILIS) ANTIBODY Routine 09/13/2024 9:45 AM EDT Encounter for sexually transmitted infection screening VARICELLA ZOSTER ANTIBODY, IGG Routine 09/13/2024 9:45 AM EDT Encounter for supervision of other normal , unspecified trimester HEPATITIS C AB W/REFL TO HCV RNA, QN, PCR Routine 09/13/2024 9:45 AM EDT Hepatitis C screening HEPATITIS B SURFACE ANTIGEN, QL Routine 09/13/2024 9:45 AM EDT Encounter for sexually transmitted infection screening HEMOGLOBINOPATHY EVALUATION Routine 09/13/2024 9:45 AM EDT Hemoglobinopathy screening test CBC NO DIFF (HEMOGRAM) Routine 9:45 AM EDT Screening for anemia ANTIBODY SCREEN Routine 09/13/2024 9:45 AM EDT Encounter for supervision of other normal , unspecified trimester ABO/RH Routine 09/13/2024 9:45 AM EDT Encounter for supervision of other normal , unspecified trimester US OB < 14 WKS EARLY, SINGLE GEST Routine 09/13/2024 7:53 AM EDT Uncertain viability of from Last 3 Months Results * IMAGE-GUIDED PAP W/ AGE BASED SCR, W/ CT/NG ([id number]) (09/13/2024 5:09 PM EDT) COMMENT [facility] Comment: This order for age-based cervical cancer and STI screening follows ACOG guidelines(PB 168, 140, EMF658). See individual assays for performing site location. [...] Pap test has been evaluated with the ThinPrep(R) Imaging System. SUBACUTE NURSE [facility]ST Comment: SLM, CT(ASCP) CT Screening Location: [place] [address] [place] [address] CLIA: [id number] Slide preparation performed at: [facility], [address] [place] [address], [address] CLIA: [id number] COMMENT QUEST Comment: EXPLANATORY NOTE: The Pap [...] test SurePath(TM) specimens have been determined by [facility]. The modifications have not been cleared or approved by the FDA. This assay has been validated pursuant to the CLIA regulations and is used for clinical purposes. For additional information, please refer to https://education.[employer].Rossolini/faq/KVF489 (This link is being provided for information/ educational purposes only.) Swab Cervix uteri structure / Unknown 09/13/2024 5:09 PM EDT 09/14/2024 6:10 AM EDT Narrative Resulting Agency Comment Performing Organization Information: Site ID: [place] [facility] Address: [address] [place] [phone] Director: Omkar Maxwell Site ID: [place] [facility] Address: [facility] [place] [address] Director: Jocelyn Lopez Natalie Mays MD LAB BLOOD ORDERABLES Final Resu lt Performing Organization Address [facility]/ZIP Co de Phone Number [address] [address], * CHLAMYDIA TRACHOMATIS/NESSERIA GONORRHOEAE RNA, TMA (09/13/2024 4:59 PM EDT) CHLAMYDIA TRACHOMATIS RNA TMA, UROGENITAL (REFL) NOT DETECTED NOT DETECTED [facility] N gonorrhoeae, DNA Probe NOT DETECTED NOT DETECTED [facility]ST COMMENT QUEST Comment: The analytical performance characteristics of this assay, when used to test SurePath(TM) specimens have been determined by [facility]. The modifications have not been cleared or approved by the FDA. This assay has been validated pursuant to the CLIA regulations and is used for clinical purposes. For additional information, please refer to https://[employer]/faq/OEK021 (This link is being provided for information/ educational purposes only.) Swab Vaginal structure / Unknown 09/13/2024 4:59 PM EDT 09/13/2024 8:08 PM EDT Narrative Resulting Agency Comment Performing Organization Information: Site ID: [place] [facility]: [facility] Address: [address] [place] [phone] Director: Omkar Maxwell Natalie Mays MD LAB PATHOLOGY ORDERABLES Final Result Performing Organization Address [facility] Co de Phone Number [address] [address], * (ABNORMAL) Protein / creatinine ratio, urine [...] Comment Performing Organization Information: Site ID: [facility] Address: [address] [place] [phone] Director: Omkar Maxwell Natalie Mays MD LAB URINE ORDERABLES Final Resu lt Performing Organization Address [facility] Co de Phone Number [address] [address], * Urine culture (09/13/2024 4:53 PM EDT) Urine Culture SEE NOTE QUEST Comment: CULTURE, URINE, ROUTINE Micro Number: [id number] Test Status: Final Specimen Source: Urine Specimen [...] 09/15/2024 5:26 AM EDT SPLIT 09/13/2024 FROM [id number] Resulting Agency Comment Performing Organization Information: Site ID: [place] [facility] Address: [address] [place] [phone] Director: Omkar Maxwell Natalie Mays MD LAB MICROBIOLOGY - GENERAL ORDE [facility] Final Result Performing Organization Address [facility] de Phone Number [address] [address], * POCT MULTISTIX 10SG (09/13/2024 10:26 AM [...] Narrative RELAYMED - 09/13/2024 10:26 AM EDT [id number] ([id number]), OBGYN Clinics - 410 Lot: [id number], Expiry: 2025-05-17 Half Sole Fitter: LS us Natalie Mays MD LAB POINT OF CARE TEST MADINA MARIE ORDERABLES Final Result RELAYMED [address] [id number], [place] * QNATAL(R) ADVANCED (09/13/2024 9:49 AM EDT) [...] monitored by Juancarlos Doran, Ph.D., FACMG, HCLD, MB. LIMITATIONS SEE NOTE [facility]ST Comment: QNatal(R) Advanced [...] performed pursuant to a license agreement with [employer]. QNatal Advanced is a laboratory developed test that has been developed and validated, pursuant to the Clinical Laboratory Improvements Amendments of 1988 (CLIA), and as such it has not been reviewed by FDA. Blood Venous blood specimen / Unknown 09/13/2024 9:49 AM EDT 09/13/2024 3:38 PM EDT Narrative [facility]ST - 09/19/2024 1:19 PM EDT SPLIT 09/13/2024 FROM [id number] MULTIPLE TESTING PRIORITIES; ROUTINE TESTING TO FOLLOW. Resulting Agency Comment Performing Organization Information: Site ID: [place] Name: [facility], Address: [address] [place] [phone] Director: Daja Gross MD,PhD,ASAD Natalie Mays MD LAB BLOOD ORDERABLES Final Resu [facility] [address] [place] [address], * HEPATITIS C AB W/REFL TO HCV RNA, QN, PCR (09/13/2024 9:45 AM EDT) Hep C Virus Ab NON-REACTI VE NON-REACT KARLA [facility]ST Comment: HCV antibody was non-reactive. There is no laboratory evidence of HCV infection. In most cases, no further action is required. However, if recent HCV exposure is suspected, a test for HCV RNA (test code 81338) is suggested. For additional information please refer to http://education.[employer].Rossolini/faq/KMR08x7 (This link is being provided for informational/ educational purposes only.) Blood Venous blood specimen / Unknown 09/13/2024 9:45 AM EDT 09/13/2024 1:55 PM EDT Narrative [facility]ST - 09/15/2024 4:04 PM EDT MULTIPLE TESTING PRIORITIES; ROUTINE TESTING TO FOLLOW. Resulting Agency Comment Performing Organization Information: Site ID: Name: [facility] Address: [address] [place] [phone] Director: Omkar Maxwell Natalie Mays MD LAB BLOOD ORDERABLES Final Resu lt Performing Organization Address [facility] Phone Number [facility] [address] [place] [address], * Syphilis Antibody - Cascading Reflex (09/13/2024 [...] Performing Organization Information: Site ID: [place] Name: [facility] Address: [address] [place] [phone] Director: Omkar Maxwell Natalie Mays MD LAB BLOOD ORDERABLES Final Resu lt Performing Organization Address [facility] Phone Number [facility] [address] [place] [address], * ABO/Rh (09/13/2024 9:45 AM EDT) ABORh O POS QUEST Blood Venous blood specimen / Unknown 09/13/2024 9:45 AM EDT 09/13/2024 1:55 PM EDT Narrative QUEST - 09/15/2024 4:04 PM EDT MULTIPLE TESTING PRIORITIES; ROUTINE TESTING TO FOLLOW. Resulting Agency Comment Performing Organization Information: Site ID: [place] Name: [facility] Address: [address] [place] [phone] Director: Dr. Gui Weber us Natalie Mays MD LAB BLOOD BANK TEST ORDERABLES Final Result Performing Organization Address [facility] Co [place] [address], * Rubella antibody, IgG (09/13/2024 9:45 AM [...] Performing Organization Information: Site ID: [place] Name: [facility] Address: [address] [place] [phone] Director: Omkar Maxwell us Natalie Mays MD LAB BLOOD ORDERABLES Final Resu lt Performing Organization Address [facility] [place] [address], * HIV-1 and HIV-2 Antibodies (Fourth Generation) (09/13/2024 9:45 AM EDT) HIV FINAL INTERPRETATION QUEST Comment: HIV Negative [...] Performing Organization Information: Site ID: [place] Name: [facility] Address: [address] [place] [phone] Director: Omkar Maxwell Natalie Mays MD LAB BLOOD ORDERABLES Final Resu lt Performing Organization Address City/[facility] Co de Phone Number [employer] [address] [place] [address], [place] * Hepatitis B Surface Antigen, QL (09/13/2024 9:45 AM EDT) Hepatitis B Surface Ag NON-REACTI VE NON-REACTI VE [facility]ST Comment: For additional information, please refer to http://education.[employer]/faq/JYL781 (This link is being provided for informational/ educational purposes only.) Blood Venous blood specimen / Unknown 09/13/2024 9:45 AM EDT 09/13/2024 1:55 PM EDT Narrative QUEST - 09/15/2024 4:04 PM EDT MULTIPLE TESTING PRIORITIES; ROUTINE TESTING TO FOLLOW. Resulting Agency Comment Performing Organization Information: Site ID: [place] Name: [facility] [place] Address: [address] [place] [phone] Director: Omkar Maxwell us aNtalie Mays MD LAB BLOOD ORDERABLES Final Resu Performing Organization Address City/[facility] Co de Phone Number [employer] [address] [place] [address], [place] * CBC (09/13/2024 9:45 AM EDT) WHITE [...] Performing Organization Information: Site ID: [place] Name: [facility] Address: [address] [place] [phone] Director: Dr. Gui Weber us Natalie Mays MD LAB BLOOD ORDERABLES Final Resu [facility] [id number] [place] [address], * Hemoglobinopathy evaluation (09/13/2024 9:45 AM EDT) [...] Comment Performing Organization Information: Site ID: Name: [facility]ic [facility] Address: [address] [place] [phone] Director: Omkar Maxwell Natalie Mays MD LAB BLOOD ORDERABLES Final Resu lt Performing Organization Address [facility] Phone Number [facility] [address] [place] [phone], * Antibody screen (09/13/2024 9:45 AM EDT) [facility] Antibody Screen NO ANTIBODIES DETECTED QUEST Comment: [...] Comment Performing Organization Information: Site ID: Name: [facility] Address: [address] [place] [phone] Director: Omkar Maxwell Natalie Mays MD LAB BLOOD BANK TEST ORDERABLES Final Result Performing Organization Address [facility] Phone Number DOMINIC [address] [place] [address], * Varicella zoster antibody, IgG (09/13/2024 9:45 AM EDT) [facility] Varicella IgG 3.31 S/CO QUEST Comment: Signal [...] Performing Organization Information: Site ID: CB Name: [employer] Address: [address] [place] [phone] Director: Omkar Maxwell us Natalie Mays MD LAB BLOOD ORDERABLES Final Resu [facility] [address] [place] [address], [place] * US OB < 14 weeks single gestation (09/13/2024 7:53 AM EDT) Anatomical Region Laterality Modality Body Ultrasound 09/13/2024 7:53 AM EDT Narrative 09/13/2024 12:58 PM EDT Obstetrics Report Signed Final 09/13/2024 12:58 PM Patient Info ID: [id number] : 1995 (29 y)(F) Name: ORLY FLORIAN Date: 09/13/2024 7:53 AM Performed By Attending: Maryjane Schreiber MD Referred By: Rajwinder Correia MD Performed By: Clarice Alexandre RDMS Ref Address: [address] [place] [address] Exam Location:[facility] Service(s) Provided Code OB Complete < 14wks [id number] Indications 11 weeks gestation of with uncertain [...] Pt has MD appt today Impression 1. Lanier intrauterine at 11w 1d with VIOLET of 04/03/2025 . 2. Normal cardiac activity with FHR 159 3. Harrington rump length measuring 47mm . Recommendations Anatomy [...] In - 09/13/2024 Obstetrics Report Signed Final 2:58 PM Patient Info ID: [id number] : 1995 (29y)(F) Name: ORLY FLORIAN Date: 09/13/2024 7:53AM Performed By Attending: Maryjane Schreiber MD Referred By: Jeff MORALES Performed By: Clarice Alexandre RDOK Ref Address: [address] [place], [place] [phone] Exam Location:[facility] Service(s) Provided Code OB Complete < [id number] Indications 11 weeks gestation of with uncertain [...] Pt has MD appt today Impression 1. Lanier intrauterine at 11w 1d with VIOLET of 04/03/2025 . 2. Normal cardiac activity with FHR 159 3. Harrington rump length measuring 47mm . Recommendations Anatomy [...] Electronically Signed Final Report 09/13/2024 12:58 PM Rajwinder Correia MD IMG OB US PROCEDURES Final Re sult from Last 3 Months Insurance [employer] [facility]
--- OUTSIDE RECORDS SUMMARY | 2024-10-12 11:27 | XMS_ITS | Encounter Summary ---
Author Organization [facility] Address [address] [place] [address] Care Team Providers Care Cylinder Head Assembler Name Role Phone Unavailable Primary Care Provider Unavailabl e Encounter Details Date Type Department Care Team (Late st Contact Info) Description 08/31/2024 Telephone [facility] - ENTRY MANAGER & [facility] [address] [place] [address] Cari Gatica, RN Social History Tobacco Use Types Packs/Day Years [...] encounter Miscellaneous Notes * Telephone Encounter - Cari Gatica RN - 08/31/2024 9:47 AM EDT Calling to obtain records on prior C/S in 2018 per the request of Dr Correia. [phone] is the fax number to send request. Request sent. LIVIA Robins documented in this encounter Plan of Treatment Upcoming Encounters Date Type Department Care Team (Late st Contact Info) Description 10/12/2024 12:30 PM EDT Routine [facility] - ENTRY MANAGER & Women's Health - [facility] [address] [address] Chanel Albarran MD, PhD [address] [place] [address] 11/15/2024 10:30 AM EDT Ancillary Procedure [facility] - ENTRY MANAGER & [facility] [address] [place], [place] [id number] documented as of this encounter Visit Diagnoses Not on filedocumented in this encounter
--- OUTSIDE RECORDS SUMMARY | 2024-10-12 11:27 | XMS_ITS | Encounter Summary ---
Author Organization [facility] Address [address] [place] [address] Care Team Providers Care Case Fitter Name Role Phone Unavailable Primary Care Provider Unavailabl e Encounter Details Date Type Department Care Team (Late st Contact Info) Description 09/02/2024 Telephone [facility] - ELASTIC ASSEMBLER & Women's [facility] [address] [place] [address] Brianna Forte MA Social History Tobacco Use [...] Telephone Encounter - Brianna Forte MA - 09/02/2024 9:18 AM EDT Pt called stating that she was seen in [facility] ER on 08/31, for some light spotting. They told her to follow up with us sooner than 09/13. She isn't having any more spotting, no problems. Would you like for me to add her to quant clinic on 09/06 or keep her appt for the ? documented in this encounter Plan of Treatment Upcoming Encounters Date Type Department Care Team (Late st Contact Info) Description 10/12/2024 12:30 PM EDT Routine [facility] - ELASTIC ASSEMBLER & Women's Health - [facility] [address] [address] Chanel Albarran MD, PhD [address] [place] [phone] 11/15/2024 10:30 AM EDT Ancillary Procedure [facility] - ELASTIC ASSEMBLER [facility] [address] [place] [address] documented as of this encounter Visit Diagnoses Not on filedocumented in this encounter
--- OUTSIDE RECORDS SUMMARY | 2024-10-12 11:27 | XMS_ITS | Encounter Summary ---
Author Organization [facility] Address [address] [place] [address] Care Team Providers Care Optical Brightener Maker Helper Name Role Phone Unavailable Primary Care Provider Unavailabl e Encounter Details Date Type Department Care Team (Latest Contact Info) Description 09/13/2024 Travel Social History Tobacco Use Types Packs/Day [...] 12:30 PM EDT Routine [facility] - DATA MODELER & Women's Health - [facility] [address] [address] Chanel Albarran MD, PhD [address] [place] [address] 11/15/2024 10:30 AM EDT Ancillary Procedure [facility] - DATA MODELER & Women's [facility] [address] [place] [address] documented as of this encounter Visit Diagnoses Not on filedocumented in this encounter
--- OUTSIDE RECORDS SUMMARY | 2024-10-12 11:27 | XMS_ITS | Clinical Summary ---
Author Organization [facility] Address [address] [place] [address] Care Team Providers Care Absorption And Adsorption Engineer Name Role Phone YeisonDebi johnson Primary Care Provider [phone] Allergies Active Allergy Reactions Criticality Noted Date Comments Sulfamethoxazole-Trimethoprim Itching Low 2020 Medications Vit-Fe Fumarate-FA ( 27-1) 27-1 MG tablet tablet Take 1 tablet by mouth Daily. Active Active Problems Problem Noted Date Diagnosed Date HPV (human papilloma virus) infection 06/15/2023 Overview (06/15/2023): 06/10/23 Neg, HPV Pool +. Repeat in 1 yr. 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 Required c/s for arrest of dilation. Sutures placed in myometrium in 2019. [X] PDC consult: No evidence of accreta, recommend type and cross [ ] 32 week f/u Assessment & Plan (03/04/2023 3:08 PM EST): Patient returns today for follow-up for history of placenta accreta. She had a previous as well. Ultrasound today demonstrates a normally grown fetus with no abnormality seen. In particular there were no markers for trisomy. Amniotic fluid volume was normal, umbilical artery Dopplers were normal, and BPP was 8 out of 8. Placenta was today was mostly posterior and up to the fundus. There was a good clear zone and not excessively lacunae. The placenta is nowhere near the scar in the lower uterine segment. I think this is at very low risk for an accreta today. I would not recommend any alterations in her normal obstetric care. Patient was counseled extensively regarding movement and will contact her provider immediately if she notices any decreased movement. Assessment & Plan (12/10/2022 2:44 PM EDT): Patient reports a history of accreta with her delivery in 2018. Per operative report concern for potential partial accreta though placenta was removed manually in 2018. 2021 operative report states placenta was removed in 2 pieces and required stitches in the posterior uterine wall for hemostasis. This is potentially concerning for partial accreta though without definitive pathological diagnosis is hard to know with certainty. The placenta in 2021 was noted to be posteriorly per operative report it is unclear the location of the placenta and the 2018 delivery. Patient likely had a increased risk of adherent placenta given history. Today's ultrasound shows anterior placenta but not approaching previous section scars. Would recommend obtaining pathology reports of placenta to evaluate for potential accreta in record for evaluation of placental location in 2018 delivery. Plan for repeat growth placental evaluation around 32 weeks gestation. At this point would not recommend early delivery unless otherwise indicated follow-up . Would recommend preparation for OR including type and cross and 2 IVs. Timur increased risk of neurectomy and need for blood transfusion to patient and patient overall agreeable. History of gestational hypertension 09/26/2022 Overview (11/21/2022): [x] Baseline gHTN labs with initial PN labs (Normal) [x] Daily ASA @ 12 weeks Assessment & Plan (04/06/2023 4:40 PM EST): BP normal today/ Assessment & Plan (12/10/2022 1:21 PM EDT): Patient with history of gestational hypertension and a prior . Patient is currently on aspirin supplementation for preeclampsia prevention. Serum baseline preeclampsia evaluation and normal urine 24-hour urine protein. Tobacco use complicating 09/26/2022 Overview (02/04/2023): I have educated her on the risk of diseases from using tobacco products such as cancer, COPD, heart disease, reproductive problems, low weight, and cataracts. Working on taper. Assessment & Plan (03/04/2023 3:49 PM EST): Still smoking but still 3 cigarettes a week. Assessment & Plan (12/10/2022 2:57 PM EDT): Has already tapered down to 3 last cigarettes a week over 3 weeks. Encouraged continued compliance. Patient and her are quitting together. 11/06/2020 Overview (03/04/2023): [x] Initial PN Labs: Normal (O+/Imm) [x] Aneuploidy Screening: Normal NIPT [x] Anatomy Ultrasound: Normal/ Abnormal [x] 24-28 week labs: Failed 1hr, passed 3hr [x] Flu Shot: Given 11/21 [x] TDAP: Given 03/04 [-] Rhogam: N/A [ ] GBS: Positive / Negative [ ] 36 week GC/CT: Positive / Negative Previous section 11/06/2020 Overview (11/21/2022): C/Sx2 G5-Failure to progress in labor, Placenta accreta, Gestational hypertension G10-RCS [x] Desires TOLAC: Yes/ No/ Not a Candidate Resolved Problems Problem Noted Date Diagnosed Date Resolved Date History of recurrent miscarriages 09/26/2022 12/10/2022 Overview (09/26/2022): Progesterone level ordered @ initial OB Recurrent loss 11/30/201912/2022 Immunizations Immunization Administration Dates Next Due DTP / HiB 1995,1995 DTaP, Unspecified 02/21/1999,09/12/1996 Fluzone (or Fluarix & Flulaval for VFC) >6mos HPV Quadrivalent 09/08/2006 HiB 09/12/1996 IPV 02/21/1999 Influenza Seasonal Injectable 11/11/2012 Influenza, Unspecified 11/11/2012 MCV4 Unspecified 09/08/2006 MMR 02/21/1999,09/12/1996 OPV 1995,1995 Tdap 03/04/2023,09/08/2006 Varicella 09/08/2006,09/12/1996 Family History Medical History Relation Name Comments Hypertension Maternal Grandmother Diabetes Paternal Grandfather Diabetes Paternal Grandmother Hypertension Paternal Grandmother Breast cancer Neg Hx Colon cancer Neg Hx Ovarian cancer Neg Hx Relation Name Status Comments Maternal Grandmother Paternal Grandfather Paternal Grandmother Social History Tobacco Use Types Packs/Day Years Used Date Smoking Tobacco: Every Day Cigarettes 1 12.7 Started: 2012 Smokeless Tobacco: Never Tobacco Cessation:Ready to Q uit: Not Asked; Counseling Given: Not Answered Alcohol Use Standard Drinks/Week Comments Not Currently 0 (1 standard drink = 0.6 oz pure alcohol) rarely, prior to (once monthly) [facility] Utilities Answer Date Recorded In the past 12 months has [employer], gas, oil, or water [email or web address] threatened to shut off services in your home? No 04/29/2023 AUDIT-C Answer Date Recorded Q1: How often do you have a drink containing alcohol? Never 04/29/2023 Q2: How many drinks containi ng alcohol do you have on a typical day when you are drinking? Patient does not drink Q3: How often do you have si x or more drinks on one occasion? Never 04/29/2023 Overall Financial Resource Strain (CARDIA) Answe r Date Recorded How hard is it for you to pa y for the very basics like food, housing, medical care, and heating? Not hard at all 04/29/2023 [facility] Rudy of Occupat ional Health - Occupational Stress Questionnaire Answer Date Recorded Do you feel stress - tense, restless, nervous, or anxious, or unable to sleep at night because your mind is troubled all the time - these days? Not at all 04/29/2023 Exercise Vital Sign Answer Date Recorde d On average, how many days pe r week do you engage in moderate to strenuous exercise (like a brisk walk)? 3 days 04/29/2023 On average, how many minutes do you engage in exercise at this level? 30 min 04/29/2023 Hunger Vital Sign Answer Date Recorded Within the past 12 months, y ou worried that your food would run out before you got the money to buy more. Never true 04/29/19 Within the past 12 months, t he food you bought just didn't last and you didn't have money to get more. Never true 04/29/2023 PRAPARE - Transportation Answer Date Re corded In the past 12 months, has l ack of transportation kept you from medical appointments or from getting medications? No 04/16 In the past 12 months, has l ack of transportation kept you from meetings, work, or from getting things needed for daily living? No 04/29/2023 Gardner Depression Scale Answer Date Recorded Retired Gardner Depression Score 4 06/10/2023 Retired EPD Scale: Thought of Harming Self Unrec ognized value 06/10/2023 Abuse Screen Answer Date Recorded Feels Unsafe at Home or Work/School no 04/29/2023 Feels Threatened by Someone no 04/16 Does Anyone Try to Keep You From Having Contact with Others or Doing Things Outside Your Home? no 04/29/2023 Physical Signs of Abuse Present no 04/29/2023 Housing Stability Answer Date Recorded Current Living Arrangements home 04/16 Potentially Unsafe Housing Conditions none 04/29/2023 Family and Community Support Answer Yazan e Recorded If for any reason you need h elp with day-to-day activities such as bathing, preparing meals, shopping, managing finances, etc., do you get the help you need? I don't need any help 04/29/2023 How often do you feel lonely or isolated from those around you? Never 04/29/2023 Employment Answer Date Recorded Do you want help finding or keeping work or a job? I do not need or want help 04/29/2023 Disabilities Answer Date Recorded Difficulty Concentrating, Remembering or Making Decisions no 04/29/2023 Difficulty Managing Errands Independently no 04/29/2023 Education Answer Date Recorded Do you want help with school or training? For example, starting or completing job training or getting a high school diploma, GED or equivalent No 04/29/2023 Preferred Language Slovak 04/29/2023 PHQ-2 Answer Date Recorded Retired PHQ-9: Brief Depression Severity Measure Score 0 04/29/2023 Comments No Sex and Gender Information Value Date Recorded Sex Assigned at Not on file Legal Sex Female 3:17 PM EDT Gender Identity Not on file Sexual Orientation Not on file Last Filed Vital Signs Vital Sign Reading Time Taken Comments Blood Pressure 104/64 06/10/2023 11:35 AM EDT Pulse 54 05/01/2023 7:38 AM EDT Temperature 36.8 C (98.3 F) 05/01/2023 7:38 AM EDT Respiratory Rate 16 05/01/2023 7:38 AM EDT Oxygen Saturation 95% 04/29/2023 11: 15 AM EDT Inhaled Oxygen Concentration - - Weight 48.4 kg (106 lb 12.8 oz) 024 11:35 AM EDT Height 153.7 cm (5' 0.5 ) 05/13/2023 12 :46 PM EDT Body Mass Index 20.51 05/13/2023 12:46 PM EDT Plan of Treatment Health Maintenance Due Date Last Done Comments Annual Gynecologic Pelvic an d Breast Exam 1995 Pneumococcal Vaccine 0-49 (1 of 2 - PCV) 2014 ANNUAL PHYSICAL 11/30/2019 COVID-19 Vaccine (1 - 2023-2 5 season) 2023 INFLUENZA VACCINE 11/16/2024 11/21/2022, , 11/11/2012 TDAP/TD VACCINES (3 - Td or Tdap) 03/04/2033 024, 09/08/2006 HEPATITIS C SCREENING Completed 09/26/2022 CHLAMYDIA SCREENING Discontinued 06/10/2023, 03/30/2023, 09/26/2022 Medical Devices Implanted Type Area Project Account Manager Device Identifier Shelf Expiration Date Model / Serial / Lot Hemost Abs Surgicel Snow 4x4in - [id number] Implanted:Qty : 1 on 04/29/2023 by Juan Diego Fermin MD at [facility] Implant N/A: Uterus ETHICON DIV ELÍAS 09/15/2024 [id number] / / [id number] Procedures Procedure Name Priority Date/Time Associated Diagnosis Comments LIQUID-BASED PAP SMEAR WITH HPV GENOTYPING REGARDLESS OF INTERPRETATION, [facility] (OLEG,COR,[facility]AD) Routine 06/10/2023 1:41 PM EDT Screening for cervical cancer OBSTETRIC PANEL Routine 09/26/2022 12:17 PM EDT care in first trimester 8 weeks gestation of History of recurrent miscarriages from Last 3 Months or Most Recently Relevant to Health Maintenance Results * LIQUID-BASED PAP SMEAR WITH HPV GENOTYPING REGARDLESS OF INTERPRETATION (OLEG,COR,MAD) (06/10/2023 1:41 PM EDT) Reference Lab Report [facility] [address] [place] [address] or [phone] Edin Lan M.D., Commercial Project Manager PATIENT NAME LABORATORY NO[facility] 127 ORLY HERNANDEZ. [id number] AGE SEX SSN CLIENT REF # [id number] 28 1995 F [id number] [address] REQUESTING Herbie. [place] [address] MATILDA CHRISTINE DATE COLLECTED DATE RECEIVED DATE REPORTED 06/10/2023 06/10/2023 06/15/2023 ThinPrep Pap with Cytyc Imaging DIAGNOSIS: Negative for intraepithelial lesion or malignancy Multiple factors can influence accuracy of Pap tests; therefore, screening at regular intervals is necessary for early cancer detection. COMMENT: Benign cellular changes associated with inflammation are present. SPECIMEN ADEQUACY: SATISFACTORY FOR EVALUATION Transformation zone is present. Partially obscuring bacteria is present. SOURCE OF SPECIMEN: VAGINAL/CERVICAL SLIDES: 1 CLINICAL HISTORY: Screening for cervical cancer Mass of breast HPV HR-HPV POOL: Positive The Aptima HPV assay is an in vitro nucleic acid amplification test for the qualitative detection of E6/E7 viral messenger RNA from 14 high risk types of HPV in cervical specimens. The high risk HPV types detected include: 16, 18, 31, 33, 35, 39, 45, 51, 52, 56, 58, 59, 66, 68 HPV Genotyping HPV 16: Negative HPV 18/45: Negative The Aptima HPV 16, 18/45 genotype assay is an in vitro nucleic acid amplification test for the qualitative detection of E6/E7 viral messenger RNA of human papillomavirus (HPV) types 16,18/45 in cervical specimens from women with Aptima HPV positive results. The Aptima HPV 16, 18/45 genotype assay can differentiate HPV 16 from HPV 18 and/or HPV 45, but does not differentiate between HPV 18 and HPV 45. ASSISTANT PROFESSOR OF CRIMINAL JUSTICE: JORDY NOVA (ASCP) CPT CODES: 94365, [id number], [id number] 06/15/2023 7:22 AM EDT [facility] ThinPrep Vial Collection / Unknown 06/10/2023 1:41 PM EDT 06/10/2023 1:41 PM EDT Matilda Christine CORE MAN PATHOLOGY/CYTOLOGY ORDERAB LES Final Result [facility]
[address] [place] [address], * Obstetric Panel (09/26/2022 12:17 PM EDT) Hepatitis B Surface Ag Negative Negative [facility] Hep C Virus Ab Non Reactive Non Reactive [facility] Comment: HCV antibody alone does not differentiate between previously resolved infection and active infection. Equivocal and Reactive HCV antibody results should be followed up with an HCV RNA test to support the diagnosis of active HCV infection. RPR Non Reactive Non Reactive [facility] Rubella Antibodies, IgG 1.23 Immune >0.99 index [facility] Comment: Non-immune <0.90 Equivocal 0.90 - 0.99 Immune >0.99 ABO Type O [facility] Rh Factor Positive [facility] Comment: Please note: Prior records for this patient's ABO / Rh type are not available for additional verification. Antibody Screen Negative Negative [facility] Blood 09/26/2022 12:1 7 PM EDT 09/26/2022 Narrative [facility] - 09/29/2022 8:35 PM EDT Performed at: 01 - [facility] [address] [place], [place] [id number] Assistant Professor Of Chemistry: Kashmri Knight PhD, Phone: [phone] us Matilda Christine CORE MAN LAB BLOOD ORDERABLES Final Result [facility] [address] [place] [address], [facility] [address] [place] [address], from Last 3 Months or Most Recently Relevant to Health Maintenance Insurance Advance Directives * CPR (Attempt to Resuscitate) (Latest Code Status on File) Date Activated Date Inactivated Comments 04/29/2023 11:53 AM 05/01/2023 2:07 PM Question Answer Comments Code Status (Patient has no pulse and is not breathing): CPR (Attempt to Resuscitate) Medical Interventions (Patie nt has pulse or is breathing): Full * CPR (Attempt to Resuscitate) Date Activated Date Inactivated Comments 04/29/2023 6:16 AM 04/29/2023 11:53 AM Question Answer Comments Code Status (Patient has no pulse and is not breathing): CPR (Attempt to Resuscitate) Medical Interventions (Patie nt has pulse or is breathing): Full Support Level Of Support Discussed With: Patient Care Teams Absorption And Adsorption Engineer Relationship Specialty Start Date End Date Debi Campoverde DO [address] [facility] [address] [facility] [address] [place] [address] PCP - General Pediatrics 04/27/23
--- OUTSIDE RECORDS SUMMARY | 2024-10-12 11:27 | XMS_ITS | Encounter Summary ---
Author Organization [facility] Address [address] [place] [address] Care Team Providers Care Skate Shop Attendant Name Role Phone Unavailable Primary Care Provider Unavailabl e Encounter Details Date Type Department Care Team (Late st Contact Info) Description 08/30/2024 Telephone [facility] - MASTER NAVAL PARACHUTIST & Women's Health [address] [facility] [address] [place], [place] [id number] Rajwinder Correia MD [address] [place] [address], [address] [place] [address] Social History Tobacco Use Types Packs/Day Years [...] encounter Miscellaneous Notes * Telephone Encounter - Pauly Hooper - 08/30/2024 8:17 AM EDT Called the patient on 08/30 at 8:05am to reschedule due to voice mail left on clarus I'm nine weeks and one day today. I need him to cancel my appointments and get them rescheduled due to my car malfunctioning. Thank you. Patient answer and the conversation was cut short due to phone breaking up and disconnecting. Before the call ended the patient stated she needed same day appt due to living 2hrs away. I sent patient a text with new appt times DE documented in this encounter Plan of Treatment Upcoming Encounters Date Type Department Care Team (Late st Contact Info) Description 10/12/2024 12:30 PM EDT Routine [facility] - MASTER NAVAL PARACHUTIST & Women's Health - [facility] [address] [address] Chanel Albarran MD, PhD [address] [place] [id number] 11/15/2024 10:30 AM EDT Ancillary Procedure [facility] - MASTER NAVAL PARACHUTIST [facility] [address] [place] [address] documented as of this encounter Visit Diagnoses Not on filedocumented in this encounter
== END 2024-10-10 23:59 | disposition home or self-care (01) ==
LOC: LAB.DROPOF 10-12 11:25
PROVIDERS: PCP Nurse Practitioner; Visit Provider Nurse Practitioner
DX: J06.9 Acute upper respiratory infection, unspecified (principal)
CPT/HCPCS: 87631

== ENCOUNTER 2024-12-05 10:44 | Emergency (ER) | payer OTHER, SELFPAY ==
[2024-12-05 10:48] VITALS: BP 137/87; PULSE 96; RESP 15; TEMP 36.8; O2SAT 100; BMI 21.4
--- NOTE | 2024-12-05 11:00 | PC.NURSE ---
FHT'S 150 WITH DOPPLER, PT REPORTS + MOVEMENT THIS AM. DENIES VAGINAL BLEEDING OR LEAKING OF VAGINAL FLUID
--- NOTE | 2024-12-05 11:04 | PC.NURSE ---
DR SALES AT BEDSIDE
[2024-12-05 11:06] LABS: Microscopic, Urine URINE MICROSCOPIC (MICROSCOPIC)
--- NOTE | 2024-12-05 11:09 | PC.NURSE ---
DR SALES SPEAKING WITH DR HUTCHINSON
[2024-12-05 11:10] LABS: Bilirubin,Urine Negative (Negative); Color,Urine YELLOW (Yellow); Glucose,Urine (UA) Negative (Negative); Ketones,Urine Negative (Negative); Leukocyte Esterase,Urine TRACE (Negative); PH,Urine 7.0 (5.0-8.5); Protein,Urine Negative (Negative); Specific Gravity, Urine 1.010 (1.005-1.030); Urobilinogen,Urine 1.0 EU/dl (0.2)
[2024-12-05 11:11] VITALS: BP 112/80; PULSE 80; RESP 18; TEMP 36.7; O2SAT 99
--- NOTE | 2024-12-05 11:11 | PC.NURSE ---
REPORT CALLED TO OB VINCE ECHAVARRIA
--- NOTE | 2024-12-05 11:13 | HMH.EDGENADL ---
Discharge Plan Disposition Patient Disposition: Home, Self-Care Prescriptions Prescriptions: No Action Vitamin 27 mg iron- 800 mcg tablet 1 tab PO DAILY Patient Comments: TAKE 1 TABLET 1 TIME EACH DAY IN THE MORNING Referrals Follow up/Referrals: Jaya Karimi MD [Primary Care Provider, Internal Medicine] - See instructions Clinical Impressions Clinical Impression: Right sided abdominal pain, Cholelithiases, Intrauterine Instructions Patient Instructions: DI for Acute Abdominal Pain Print Language Print Language: Cymraes Discharge ED Provider: Lashawn Bowen General Adult HPI General Chief complaint: Abdominal Pain Stated complaint: abd pain- Time Seen by Provider: 12/05/24 10:54 Mode of Arrival: Ambulatory Source of Information: Patient Description of Symptoms (Recalled from ER Triage Doc. by RN): patient presents for sharp right upper quadrant pain . adama stated she has been told he has a bad gallbladder and salome within it. patient is also 23 weeks and says this is her 7th pregnacy. this has not felt like anything she has ever experienced in previous pregnancies, but does feek very similar to her other gallbladder attacks. jagruti stated the constanza pain started thursday and has persisted since. History of Present Illness HPI narrative: Patient is a 29-year-old A4 at 23 weeks gestational age presents today with right-sided abdominal discomfort. She states that she has had having pain in her right upper quadrant particular after eating. But also has some right sided flank/abdominal discomfort. No loss of fluid bleeding contractions lack of baby movements etc. No fevers or chills. Related Data Home Medications ?Medication ?Instructions ?Recorded ?Confirmed vits no.130-ferrous fum 1 tab PO DAILY 10/10/24 10/10/24 27 mg iron-folic acid 800 mcg tablet ( Vitamin) Allergies Allergy/AdvReac Type Severity Reaction Status Date / Time sulfamethoxazole (From Allergy Unknown Verified 10/10/24 18:13 Bactrim) trimethoprim (From Bactrim) Allergy Unknown Verified 10/10/24 18:13 [facility] Disclaimer: The information contained in this section may have been updated after the patient was seen, as this information can be updated by other users. Medical History Cervical radicular pain Anxiety Hypertension complicating in third trimester Smoking (tobacco) complicating , third trimester Encounter for induction of labor Anemia during in third trimester Pneumonia Social History Smoking Status: Current every day smoker tobacco type: cigarettes packs per day: 1 alcohol intake: current alcohol intake frequency: holidays/special occasions only substance use type: denies use current occupational status: unemployed Travel in the last 8 weeks?: None household members: family housing: house Other Medical History Have you received the Flu Vaccine for this season: No Have you received the Pneumonia Vaccine: No ROS Obtained: Yes All systems reviewed & no additional complaints except as documented Physical Exam General General appearance: alert and in no apparent distress Respiratory Respiratory exam: Present normal lung sounds bilaterally Cardiovascular Cardiovascular exam: Present regular rate Abdominal Exam Abdominal exam: Present soft, distention (Gravid) and tenderness (Right upper quadrant tenderness to palpation no rebound or guarding) Neurological Exam Neurological exam: Present alert and oriented X3 Medical Decision Making Medical Records Screening: Per USPSTF and CDC recommendations, given the prevalence of disease in our region, it is our hospital?s policy to screen for HIV and viral Hepatitis for all patients aged 18 and over and those with ongoing risk factors. Tal Inquiry Pt receiving controlled substance: No Vital Signs: 12/05/24 10:48 12/05/24 11:11 Temperature 98.3 F 98.0 F Temperature Source Oral Oral Pulse Rate 80 Pulse Rate [Right Radial] 96 H Respiratory Rate 15 18 Blood Pressure 112/80 Blood Pressure [Right Arm] 137/87 Blood Pressure Mean [Right Arm] 103 Blood Pressure Source Automatic Cuff Blood Pressure Source [Right Arm] Automatic Cuff Blood Pressure Position [Right Arm] Sitting 02 Sat by Pulse Oximetry 100 Oxygen Delivery Method Room Air Room Air Orders (Tests/Meds): ORDERS Category Date Time Status POCUS Point of Care (ER Only) Stat Exams 12/05/24 10:56 Ordered Urinalysis and Microscopic Stat Lab 12/05/24 11:00 Received Medical Decision Narrative: Patient with above history and physical 23 weeks with benign abdominal exam aside from some mild tenderness in the right upper quadrant. Our [facility] protocol is for her to be in OB triage if she is beyond 20 weeks therefore medical screening exam was performed I did a basic bedside ultrasound to look at the baby as well as her right upper quadrant. She does certainly have extensive cholelithiasis which is likely the cause of her symptoms but no radiographic evidence of cholecystitis. Single living intrauterine was noted no emergency or emergent medical condition identified that needed to be stabilized before sending her upstairs. I spoke with Dr. Dominguez who is agreeable for her to go to OB triage where she will be further evaluated. Procedures Miscellaneous Procedure Procedure Performed: Limited OB ultrasound Indication: Abdominal pain in setting of Identified structures: [-Uterus -Left adnexa -Right adnexa -Pouch of Juan] Findings: Uterus: Definitive IUP consistent with dates living heart rate normal Right adnexa: No free fluid Left adnexa: No free fluid Cul de sac: No free fluid Impression: Single living intrauterine consistent with dates with normal heart rate Images were were saved to permanent archive The study was technically adequate CPT Transabdominal: 33593-69 This study was performed by [facility], and I personally interpreted all images/videos. Based on my clinical judgement, these images were adequate and did not necessitate further imaging. Limited RUQ ultrasound Indication: Abdominal pain Identified structures: -Gallbladder -Gallbladder wall -Common bile duct -Liver Findings: Negative sonographic Resendiz's there are numerous gallstones present throughout no sludge anterior gallbladder wall is normal no Brice cholecystic fluid noted common bile duct visualized and was within normal limits Impression: Cholelithiasis without any radiographic evidence of cholecystitis Images were saved to permanent archive The study was technically adequate CPT 74591-80 This study was performed by [facility], and I personally interpreted all images/videos. Based on my clinical judgement, these images were adequate and did not necessitate further imaging. Critical Care Critical Care Time Critical Care Time: No
[2024-12-05 11:21] LABS: Bacteria,Urine Trace /lpf
== END 2024-12-05 11:20 | disposition home or self-care (01) ==
PROVIDERS: Emergency Provider Student in an Organized Health Care Education/Training Program; PCP Internal Medicine Adolescent Medicine
DX: O26.612 Liver and biliary tract disorders in pregnancy, second trimester (principal); R10.11 Right upper quadrant pain; K80.20 Calculus of gallbladder without cholecystitis without obstruction; Z3A.23 23 weeks gestation of pregnancy
CPT/HCPCS: 81001; 99283; 99284

== ENCOUNTER 2024-12-05 11:15 | Outpatient (CLI) | payer OTHER, SELFPAY ==
[2024-12-05 11:26] VITALS: BMI 22.1
[2024-12-05 11:58] VITALS: BP 125/80; PULSE 80; RESP 17; TEMP 36.9; O2SAT 100; BMI 22.1
== END 2024-12-05 12:19 | disposition home or self-care (01) ==
LOC: OBOUT 11:15 → OB 11:16
PROVIDERS: PCP Internal Medicine Adolescent Medicine; Visit Provider Obstetrics & Gynecology
DX: Z34.82 Encounter for supervision of other normal pregnancy, second trimester (principal); Z3A.23 23 weeks gestation of pregnancy
CPT/HCPCS: 99212; G0463

== ENCOUNTER 2025-02-01 14:50 | Outpatient (CLI) | payer OTHER, SELFPAY ==
--- OUTSIDE RECORDS SUMMARY | 2024-12-16 08:00 | XMS_ITS | Encounter Summary ---
Author Organization [facility] Address [address] [facility] [address] [place] [address] Care Team Providers Care Taxicab Driver Name Role Phone Unavailable Primary Care Provider Unavailabl e Reason for Referral * Imaging (Routine) - Closed Specialty Diagnoses / Procedures Referred By Contac t Referred To Contact Obstetrics and Gynecology Diagnoses 24 completed weeks of gestation Past history of placenta accreta Procedures US OB follow up transabdominal approach Rajwinder Correia MD [address] [place] [address], [address] [place] [address] Phone: tel: fax: [facility] [address] [place] [address] Phone: tel: fax: Referral ID Status Reason Start Date Expiration Date Visits Re quested Visits Authorized [id number] Closed 12/16/2024 01/15/2026 1 1 Reason for Visit * Reason Comments Routine Visit Encounter Details Date Type Department Care Team (Latest Contact Info) Description 12/16/2024 9:00 AM EDT Routine [facility] [address] [facility] [address] [place] [address] Monica Gardner MD [address] [address] Maternal care for low transverse scar from previous delivery (Primary Dx); Smoking (tobacco) complicating , unspecified trimester; 24 completed weeks of gestation; care for patient with recurrent loss, second trimester; Past history of placenta accreta; Anxiety, not otherwise specified; Past history of gestational hypertension; Positive cervical high risk HPV DNA test; Past history of hemorrhage; Flu vaccination; Sterilization requested; Gallstone Social History Tobacco Use Types Packs/Day Years Used Date Smoking Tobacco: Every Day Cigarettes Smokeless Tobacco: Never Alcohol Use Standard Drinks/Week Comments Not Currently 0 (1 standard drink = 0.6 oz pur e alcohol) PRAPARE - Transportation Answer Date Re corded In the past 12 months, has l ack of transportation kept you from medical appointments or from getting medications? No 07/17 In the past 12 months, has l ack of transportation kept you from meetings, work, or from getting things needed for daily living? No 07/28/2024 Hunger Vital Sign Answer Date Recorded Within the past 12 months, y ou worried that your food would run out before you got the money to buy more. Never true 12/17/19 25 Within the past 12 months, t he food you bought just didn't last and you didn't have money to get more. Never true 12/16/2024 Estimated Date of Delivery Comme nts Yes 04/03/2025 Based on last me nstrual period of 06/27/2024 (Approximate) Sex and Gender Information Value Date Recorded Sex Assigned at Not on file Legal Sex Female 10:51 AM EDT Gender Identity Not on file Sexual Orientation Not on file documented as of this encounter Last Filed Vital Signs Vital Sign Reading Time Taken Comments Blood Pressure 115/72 12/16/2024 8:52 AM EDT Pulse - - Temperature - - Respiratory Rate - - Oxygen Saturation - - Inhaled Oxygen Concentration - - Weight 52.3 kg (115 lb 6.4 oz) 12/16/2024 8:52 A M EDT Height - - Body Mass Index 22.54 07/28/2024 9:19 AM EDT documented in this encounter Progress Notes * Monica Gadrner MD - 12/16/2024 9:00 AM EDT [facility] - [facility] SECOND TRIMESTER NOTE Patient: Orly Florian Age: 29 y.o. Sex: female : 1995 Visit Date: 12/16/2024 Visit Type: f/u OB Chief Complaint Patient presents with Routine Visit Orly Florian is a 29 y.o. at 24w4d by L=9 (VIOLET 04/03/2025, by Last Menstrual Period) whopresents for a routine visit. She denies vaginal bleeding, leakage of fluid, decreased movements, or contractions. Today, she is doing well. Was seen in ED near her home 2 weeks ago for abdominal pain, where they found several gallstones. She has noticed spicy foods seem to trigger this pain and has been trying to avoid these foods. Discussed avoiding fatty/spicy foods and tylenol for pain as needed. Return precautions provided. Medicaid consents signed 12/16/24. Discussed tubal at time of CS, counseled on risks/benefits. Her is complicated by: History of section x3 Past with possible focal placenta accreta History of gestational hypertension History of PreEclampsia (2018) Tobacco use in Anxiety History of recurrent loss Desires sterilization Gallstones The following portions of the chart were reviewed this encounter and updated as appropriate: Objective Physical Exam Weight: 115 lb 6.4 oz (52.3 kg) Expected Total Weight Gain: 25 lb (11.5 kg)-35 lb (16 kg) Pregravid BMI: 18.94 BP: 115/72 Heart Rate: 150 Fundal Height (cm): 22 cm Assessment/Plan Problem List Items Addressed This Visit 24 completed weeks of gestation Overview labs: Blood type: O+ (04/29/23) Ab screen: neg (09/13/24) Hgb: 12.7 (08/31/24) > 13.5 (09/13/24) Plt: 286 (08/31/24) >287 (09/13/24) HIV: NR (09/13/24) Syph ab: neg (09/13/24) HBSag: NR (09/13/24) HCV: NR (09/13/24) GC: neg (09/13/24) CT: neg (09/13/24) 1hr: pending 12/16 3hr: TBD GBS: @ 36 wks Pap: NILM (09/13/24) Ucx: neg (09/13/24) Genetics: Qnatal - low-risk F Ultrasound 08/31/24: IUP, +FHT. Dating by L=9 09/13/24: IUP with FHR 159bpm. CRL 47mm, consistent with 11w1d, which matches LMP and previous dating. 11/16: SIUP, ceph, post plac w/o previa, CCI, FHR 158, MVP 4.2, EFW 357g (54%ile), julian nl Immunizations: Rubella: immune Varicella: Immunization x2 in chart Tdap: @ 28 wks Flu: 12/16 RSV: @32-36w Relevant Orders GLUCOSE, GESTATIONAL SCREEN (50G)-135 CUTOFF POCT URISTIX (Completed) CBC and differential (Q6399) US OB follow up transabdominal approach Anxiety Overview - History of anxiety - Not on meds - Reports stable mood - Continue to monitor Flu vaccination Relevant Orders INFLUENZA TRIVALENT MDCK PF (FLUCELVAX -) Gallstone Overview - 12/16/24: reports being seen in ED near home for abdominal pain, determined to be caused by multiple gallstones. Patient does not desire surgery, triggered by spicy foods. Has been intermittently painful. Recommended avoiding fatty/spicy foods, return precautions given. Past history of gestational hypertension Overview - 2018 GHTN, mild PreE on labetolol - Baseline P/C, CMP with CBC ordered at IOB visit 08/30 >08/31/24: Hgb 12.7 plt 286 AST/ALT: Cr 0.5 P/C unable to calculate (protein too low) - Initiate low dose aspirin at 12 weeks until delivery > rx sent, pt reports compliance Past history of placenta accreta Overview In [...] in the posterior uterine wall for hemostasis. MFM consult 10/19/24 > Discussed risk of PAS with history of CS with patient. > Posterior placenta without previa on anatomy scan. Given concern for posterior PAS, growth US ordered for 28-32 weeks with evaluation of placenta. > Counseled on recommendation for additoinal imaging (MRI) and C-hyst in the event there is concern PAS. > Informed elective hysterectomy at time of CS not recommended. Hysterectomy will only be performed for diagnosis of PAS or life saving measures > Patient ultimately does not desire future fertility. Discussed TLH or BTL at time of CS. Denies dysmenorrhea and menorrhagia. Patient voiced understanding. Desires to move forward with BTL. Consents signed 12/16/24. Relevant Orders US OB follow up transabdominal approach Past history of hemorrhage Overview 2018: Hgb 7.9 on PPD1 and she was transfused with 2UpRBCs Positive cervical high risk HPV DNA test Overview -Pap 06/10/2023- NILM with +HR HPV, negative for 16/18 (In Care Everywhere, [facility]) -Repeat collected IOB 09/13/24 > NILM (HPV did not reflex 2/2 age) care for patient with recurrent loss Overview 4x G5: 2019 IAB 10wk G6: 2020 SAB 8wk G7: 2020 SAB 4wk G8: 2020 SAB 4wk - prior APLS testing 2020 wnl Previous section in , antepartum Overview - previous CD x 3 > 2018: 2/2 failure to progress > pt did not dilate past 4-5cm > 2021 > 2023 -In last CD 04/2023- Op Report from [facility] in [place] Dense adhesions were encountered between the subcutaneous [...] closed with#1 PDS in a running fashion. Sterilization requested Overview - Medicaid consents signed 12/16/24. Scanned into media. - Discussion of post- bilateral tubal ligation/bilateral salpingectomy took place with patient. We discussed the risks of future of approximately 1 % and should take test ifany missed menses. The risk of ectopic is as high as 1/3 with subsequent after tubal steri lization. Alternatives of long acting reversible contraction such as Nexplanon or IUD, or male sterilization. Also, we briefly discussed risk of failure of surgery to ligate tubes, but that we send tubal segments to pathology to assess for complete cross section. In the event of unsuccessful surgery, back up control or further surgery could be indicated. Patient also understands high risk of regret (~25%) due to her age less than 30. We also discussed with the patient the benefits of bilateral salpingectomy vs. BTO. It was explained to the patient that bilateral salpingectomy reduces the risk of ovarian and fallopian tube cancer, ectopic , and undesired fertility. The patientunderstands the risks and benefits and consents to bilateral salpingectomy as well as Bilateral tubal ligation. Tobacco use disorder complicating , childbirth, and the puerperium - Primary Overview daily tobacco use encourage cessation. Information on [place] Quitline If persistent use 1/2 PPD consider repeat growth 3rd trimester due to risk of growth restriction surveillance at 36 weeks due to risk stillbirth LD- full flavor 1hGTT today Flu shot today Continue vitamin. Labs reviewed. Follow up in 4 weeks for a routine visit. Monica Gardner MD [facility] 12/16/2024 Cosigned by Rajwinder Correia MD at 12/17/2024 10:26 PM EDT * Rajwinder Correia MD - 12/16/2024 9:00 AM EDT Continuity Clinic Attending Visit Note and Attestation: Patient seen and evaluated in clinic with Dr. Gardner. She is here for Return OB visit. 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 Doesn't specifically comment on any concerning features. Have sent note to M and U/S to possibly further review with her follow up scan @ 28 weeks. Hx GHTN in prior pregnancies- normotensive Daily tobacco use Gallstones- per pt seen at [facility] earlier in week and dx on U/S (do not see this in Care Everywhere, MA asked to obtain). Doing 1 hour and CBC today Desires flu shot today Patient's history, exam, prenatals reviewed, care plan discussed and patient's questions asked/answered. Agree with care plan as outlined in resident note. Attending Supervision Attestation: I personally saw and examined the patient on the date of resident/fellow evaluation listed on the note above. I have discussed the patient with the resident/fellow and agree with the resident/fellow's findings and treatment plan as written. (GC modifier) Rajwinder Correia MD [facility] Visit date: 12/16/2024 Signed: 12/16/24 documented in this encounter Plan of Treatment Upcoming Encounters Date Type Department Care Team (Late st Contact Info) Description 02/06/2025 12:30 PM EST Ancillary Procedure [facility] [address] [place] [id number] 02/14/2025 12:30 PM EST Ancillary Procedure [facility] [address] [place] [address] 02/14/2025 1:45 PM EST Routine [facility] [address] [facility] [address] [place] [address] Tash Menchaca MD [address] [facility] [address] [place] [address] 02/21/2025 2:00 PM EST Ancillary Procedure [facility] [address] [place] [address] 02/28/2025 9:30 AM EST Ancillary Procedure [facility] [place] [address] 03/07/2025 10:15 AM EST Ancillary Procedure [facility] [place] [address] 03/14/2025 10:15 AM EST Ancillary Procedure [facility]ANCE [facility] [place] [address] [place] [address] 03/21/2025 9:30 AM EST Ancillary Procedure [facility]PL[facility]ANCE [facility] Women[facility] [place] [address] [place] [address] documented as of this encounter Procedures Procedure Name Priority Date/Time Associated Diagnosis Comments US OB FOLLOW UP TRANSABDOMINAL APPROACH Routine 01/16/2025 9:28 AM EST 24 completed weeks of gestation Past history of placenta accreta POCT URISTIX Routine 12/16/2024 10:06 AM EDT 24 completed weeks of gestation CBC AND DIFFERENTIAL Routine 12/16/2024 9:55 AM EDT 24 completed weeks of gestation GLUCOSE, GESTATIONAL SCREEN (50G)-135 CUTOFF Routine 12/16/2024 9:54 AM EDT 24 completed weeks of gestation documented in this encounter Results * US OB follow up transabdominal approach (01/16/2025 9:28 AM EST) Anatomical Region Laterality Modality Body Ultrasound 01/16/2025 9:28 AM EST Narrative 01/16/2025 12:16 PM EST Obstetrics Report Signed Final 01/16/2025 12:16 PM Patient Info ID: [id number] : 1995 (29 y)(F) Name: ORLY FLORIAN Date: 01/16/2025 9:28 AM Performed By Attending: Maryjane Narayan MD Referred By: Monica Gardner MD Performed By: Vanna Gatica RDMS Ref Address: [address] [place] [address], [address], [place] [address] Exam Location:[facility] Secondary Rajwinder Correia MD phy.: Address: [address] [place] [address] Service(s) Provided Code OB Follow-up [id number] Indications 29 weeks gestation of Encounter for screening for malformations Prior / Previous section / scar Tobacco/Cigarette smoking in 3rd Tri Encounter for screening for growth restriction Recurrent miscarriage / loss, currently , 3rd Tri Cholelithiasis, Gallstones complicating , 3rd Tri OB History : 10 Term: 6 SAB: 3 Livin Vital Signs Weight(lb): 97 Height: 5'00 BMI: 18.94 Evaluation Number Of Fetuses: 1 Heart Rate(bpm): 161 Cardiac Activity: Present Presentation: Cephalic Placenta Location: Posterior, no previa Amniotic Fluid ELSA FV: Subjectively adequate 13.46 41 4.19 4.19 1.93 3.15 4.19 Comment: movement observed during real time scanning. Gestational Age LMP: 29w 0d Date: 06/27/24 VIOLET: 04/03/25 U/S Today: 29w 3d VIOLET: 03/31/25 Best: 29w 0d Det. By: LMP (06/27/24) VIOLET: 04/03/25 Biometry -------- BPD: 78.1 mm G.Age: 31w 2d 94 % CI: 80.68 % 70 - 86 OFD: 96.8 mm FL/HC: 18.1 % 19.6 - 20.8 HC: 279.6 mm G. Age: 30w 4d 65 % HC/AC: 1.14 0.99 - 1.21 AC: 245.9 mm G. Age: 28w 6d 39 % FL/BPD: 64.8 % 71 - 87 FL: 50.6 mm G. Age: 27w 1d 3.4 % FL/AC: 20.6 % 20 - 24 Est. FW: 1254 gm 2lb 12oz 29 % Standard Anatomy Diaphragm: Appears normal Kidneys: Appear normal Heart: Normal 4 chamber view Bladder: Appears normal Stomach: Appears normal Cervix Uterus Adnexa Adnexa No masses or fluid seen. Comments -------- EFW= 1254 gm, 29% ELSA= 13.46 cm Pt had rpv this morning Dr narayan in with pt, notified of results Score= 0 / Placental Location: Normal (0) Score= 1 / Placental Thickness: 3.5 cm - 4.0 cm (1), Score= 0 / Retroplacental space: Present (0) Score= 0 / Thickness of retroplacental myometrium: > 1 mm (0), Score= 1 / Placental Lacunae: Present (1), Score= 1 / Retroplacental myometrial blood flow: Hypervascularity (1), Score= 2 / History of section: >= 2 (2) Total Score=5 (Scoring Guide= Total score of <5: No evidence of PAS, Total score of 5-10: Evidence of placenta accreta or increta, Total score of >= 10: Evidence of placenta percreta) Impression 1. Lanier intrauterine at 29w 0d with VIOLET of 04/03/2025 . 2. Cephalic presentation. 3. Posterior, no previa placenta. 4. Normal cardiac activity with FHR 161 5. Normal amniotic fluid index of 13.46cm with MVP 4.19cm. 6. Estimated weight 1254g is at the 29 %tile. Recommendations MRI ordered--hx of focal accreta in prior US performed at bedside by pa limited due to posterior placenta Recommend US for growth at 28wks Thank you for allowing us to participate in the care of Ms. FLORIAN. If any further questions should arise please do not hesitate to contact us. Maryjane Narayan MD Electronically Signed Final Report 01/16/2025 12:16 PM Procedure Note System, Provider Not In - 01/16/2025 Obstetrics Report Signed Final 2:16 PM Patient Info ID: [id number] : 1995 (29y)(F) Name: ORLY FLORIAN Date: 01/16/2025 9:28AM Performed By Attending: Maryjane Narayan MD Referred By: David MORALES Performed By: Vanna Gatica [facility] Ref Address: [address] [place] [address] Exam Location:[facility] Secondary Jeff MORALES phy.: Address: [address] [place] [address] Service(s) Provided Code OB Follow-[id number] Indications 29 weeks gestation of Encounter for screening for malformations Prior / Previous section / scar Tobacco/Cigarette smoking in 3rd Tri Encounter for screening for growth restriction Recurrent miscarriage / loss, currently , 3rd Tri Cholelithiasis, Gallstones complicating , 3rd Tri OB History : 10 Term: 6 SAB: 3 Livin Vital Signs Weight(lb): 97 Height: 5'00 BMI:18.94 Evaluation Number Of Fetuses: 1 Heart Rate(bpm): 161 Cardiac Activity: Present Presentation: Cephalic Placenta Location: Posterior, no previa Amniotic Fluid ELSA FV: Subjectively adequate 13.46 41 4.19 4.19 1.93 3.15 4.19 Comment: movement observed during real time scanning. Gestational Age LMP: 29w 0d Date: 06/27/24 VIOLET:04/03/25 U/S Today: 29w 3d VIOLET:03/31/25 Best: 29w 0d Det. By: LMP (06/27/24) VIOLET:04/03/25 Biometry -------- BPD: 78.1 mm G.Age: 31w 2d 94 % CI: 80.68 %70 - 86 OFD: 96.8 mm FL/HC: 18.1 %19.6 - 20.8 HC: 279.6 mm G. Age: 30w 4d 65 % HC/AC: 1.140.99 - 1.21 AC: 245.9 mm G. Age: 28w 6d 39 % FL/BPD: 64.8 %71 - 87 FL: 50.6 mm G. Age: 27w 1d 3.4 % FL/AC: 20.6 %20 - 24 Est. FW: 1254 gm 2lb 12oz 29 % Standard Anatomy Diaphragm: Appears normal Kidneys:Appear normal Heart: Normal 4 chamber view Bladder:Appears normal Stomach: Appears normal Cervix Uterus Adnexa Adnexa No masses or fluid seen. Comments -------- EFW= 1254 gm, 29% ELSA= 13.46 cm Pt had rpv this morning Dr narayan in with pt, notified of results Score= 0 / Placental Location: Normal (0) Score= 1 / Placental Thickness: 3.5 cm - 4.0 cm (1), Score= 0 / Retroplacental space: Present (0) Score= 0 / Thickness of retroplacental myometrium: > 1 mm (0), Score= 1 / Placental Lacunae: Present (1), Score= 1 / Retroplacental myometrial blood flow: Hypervascularity(1), Score= 2 / History of section: >= 2 (2) Total Score=5 (Scoring Guide= Total score of <5: No evidence of PAS, Totalscore of 5-10: Evidence of placenta accreta or increta, Total score of >= 10: Evidence ofplacenta percreta) Impression 1. Lanier intrauterine at 29w 0d with VIOLET of 04/03/2025 . 2. Cephalic presentation. 3. Posterior, no previa placenta. 4. Normal cardiac activity with FHR 161 5. Normal amniotic fluid index of 13.46cm with MVP 4.19cm. 6. Estimated weight 1254g is at the 29 %tile. Recommendations MRI ordered--hx of focal accreta in prior US performed at bedside by me limited due to posterior placenta Recommend US for growth at 28wks Thank you for allowing us to participate in the care of Ms. FLORIAN. Ifany further questions should arise please do not hesitate to contact us. Maryjane Narayan MD Electronically Signed Final Report 01/16/2025 12:16 PM us Rajwinder Correia MD IMG OB US PROCEDURES Final Re sult * POCT URISTIX (12/16/2024 10:06 AM EDT) Glucose, UA Negative [facility] Protein, UA Negative [facility] 12/16/2024 10:0 6 AM EDT 12/16/2024 10:06 AM EDT Narrative [facility] - 12/16/2024 10:06 AM EDT [id number] ([id number]), OBGYN Clinics - 410 Lot: [id number], Expiry: 2025-10-17 Music Education Adjunct Professor: LS us Rajwinder Correia MD LAB POINT OF CARE TEST DOCKED DEVICE ORDERABLES Final Result [facility] [address] [place] [address], * (ABNORMAL) CBC and differential (Q6399) (12/16/2024 9:55 AM EDT) WHITE BLOOD CELL COUNT 10.2 3.8 - 10.8 K/uL [facility] RED BLOOD CELL COUNT 3.9 3.8 - 5.1 x10(6)/uL [facility] HEMOGLOBIN 12.5 12.0 - 16.0 ZZ [facility] HEMATOCRIT 37.5 35.0 - 45.0 % [facility] MCV 96.3(H) 79.4 - 94.8 pg [facility] MCH 32.1 25.6 - 32.2 pg [facility] MCHC 33.3 32.3 - 36.5 Gram/dL [facility] RDW 13.4 11.0 - 15.0 % [facility] PLATELET COUNT 255 140 - 420 x10(3)/uL [facility] MPV 7.6(L) 8.7 - 12.0 fL [facility] NEUTROPHILS 74.9 34.0 - 75.0 % [facility] ABSOLUTE NEUTROPHILS 7.7(H) 1.5 - 7.1 x10(3)/uL [facility] LYMPHOCYTES 21.0 17.0 - 53.0 % [facility] ABSOLUTE LYMPHOCYTES 2.1 1.0 - 3.5 x10(3)/uL [facility] MONOCYTES 3.2 2.0 - 12.0 % [facility] ABSOLUTE MONOCYTES 0.3 0.0 - 1.0 x10(3)/uL [facility] EOSINOPHILS 0.5 0.0 - 7.0 % [facility] ABSOLUTE EOSINOPHILS 0.1 0.0 - 0.7 x10(3)/uL [facility] BASOPHILS 0.4 0.0 - 3.0 % [facility] ABSOLUTE BASOPHILS 0.0 0.0 - 3.0 x10(3)/uL [facility] Blood Venous blood specimen / Unknown 12/16/2024 9:55 AM EDT 12/16/2024 6:47 PM EDT Narrative Resulting Agency Comment Performing Organization Information: Site ID: OMAR Name: [facility] Address: [address] [place] [id number] Director: Dr. Gui Weber us Rajwinder Correia MD LAB BLOOD ORDERABLES Final Re sult [facility] [address] [place] [address], * GLUCOSE, GESTATIONAL SCREEN (50G)-135 CUTOFF (12/16/2024 9:54 AM EDT) GLUCOSE, GESTATIONAL SCREEN (50G)-135 CUTOFF 122 <135 mg/dL [facility] 12/16/2024 9:54 AM EDT 12/16/2024 6:42 PM EDT Narrative Resulting Agency Comment Performing Organization Information: Site ID: [id number] Name: [employer] Address: [address] [place] [id number] Director: Omkar Maxwell us Rajwinder Correia MD LAB BLOOD ORDERABLES Final Re sult Performing Organization Address City/State/[facility] Co de Phone Number [employer] [place], [place] [address] documented in this encounter Visit Diagnoses Diagnosis Maternal care for low transverse scar from previous delivery- Primary Smoking (tobacco) complicating , unspecified trimester 24 completed weeks of gestation care for patient with recurrent loss, 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
--- OUTSIDE RECORDS SUMMARY | 2025-01-16 09:00 | XMS_ITS | Encounter Summary ---
Author Organization [facility] Address [address] [facility] [address] [place] [address] Care Team Providers Care Brusher Tender Name Role Phone Unavailable Primary Care Provider Unavailabl e Reason for Visit * Reason Comments Routine Visit Encounter Details Date Type Department Care Team (Latest Contact Info) Description 01/16/2025 9:00 AM EST Routine [facility] - ICU REG[facility]ED [facility] & [facility] [address] [facility] [address] [place] [address] Maggie Pena MD [address] [facility] [address] [place] [address] Maternal care for unspecified type scar from previous delivery, not otherwise specified (Primary Dx); 29 weeks gestation of ; Past history of gestational hypertension; Past history of hemorrhage; Past history of placenta accreta; Anxiety, not otherwise specified; care for patient with recurrent loss, unspecified trimester; Smoking (tobacco) complicating , third trimester; Positive cervical high risk HPV DNA test; Sterilization requested; Gallstone; Uterine size for dates discrepancy <Third trimester> Social History Tobacco Use Types Packs/Day Years [...] the money to buy more. Never true 01/17/20 25 Within the past 12 months, t he food you bought just didn't last and you didn't have money to get more. Never true 01/16/2025 Estimated Date of Delivery Comme nts Yes 04/03/2025 Based on last me nstrual period of 06/27/2024 (Approximate) Sex and Gender Information Value Date Recorded Sex Assigned at Not on file Legal Sex Female 10:51 AM EDT Gender Identity Not on file Sexual Orientation Not on file documented as of this encounter Last Filed Vital Signs Vital Sign Reading Time Taken Comments Blood Pressure 116/73 01/16/2025 8:57 AM EST Pulse - - Temperature - - Respiratory Rate - - Oxygen Saturation - - Inhaled Oxygen Concentration - - Weight 53.9 kg (118 lb 12.8 oz) 01/16/2025 8:57 AM EST Height - - Body Mass Index 23.2 07/28/2024 9:19 AM EDT documented in this encounter Patient Instructions * Patient Instructions* Rajwinder Correia MD - 01/16/2025 9:00 AM EST Images from the original note were not included. ACOG Tdap Recommendations ACOG COVID vaccine recommendations RSV Vaccination for People The CDC recommends two ways to protect babies from getting very sick with Respiratory Syncytial Virus (RSV): An RSV vaccination given during Pfizer???s bivalent RSVpreF vaccine (Abrysvo) is recommended for use during (maternal RSVvaccine). It is given during RSV season to people who are 32 through 36 weeks . Or, An RSV immunization given directly to infants and some older babies Babies born to mothers who get RSV vaccine at least 2 weeks before delivery will have protection and, in most cases, should not need an RSV immunization later. When is RSV season? In most regions of the [facility] RSV season starts in the fall and peaks in the winter, but thetiming and severity of RSV season can vary from place to place and year to year. RSV season is likely to be different for people living in [place], parts of [place], [place], [place], [facility], [facility], and the .[facility]. The goal of maternal RSV vaccination is to protect babies from getting very sick with RSV during their first RSV season. In most of the continental [facility], this means maternal RSV vaccine willbe given in October through February. If you live in [place], [place], or outside the continental [place] talk to your healthcare provider about when RSV season is expected where you live, so that your can be protected against RSV disease. Who should get the maternal RSV vaccine? People who are 32 through 36 weeks during October through February should get one dose ofmaternal RSV vaccine to protect their babies. RSV season can vary around the country. If you live in [place], [place], or outside the continental [place] talk to your healthcare provider about when RSV season is expected where you live. How is the maternal RSV vaccine administered? Maternal RSV vaccine is given as a shot into the mother???s upper arm. Only a single dose (one shot) of maternal RSV vaccine is recommended. It is not yet known whether another dose might be needed in later pregnancies. How well does the maternal RSV vaccine work? When someone gets RSV vaccine, their body responds by making a protein that protects against the virus that causes RSV. The process takes about 2 weeks. When a person gets RSV vaccine, theirprotective proteins (called antibodies) also pass to their baby. So, babies who are born at least 2weeks after their mother gets RSV vaccine are protected at , when infants are at the highest risk of severe RSV disease. The vaccine can reduce a baby???s risk of being hospitalized from RSV by 57% in the first six months after . What are the possible side effects of the maternal RSV vaccine? In the clinical trials, the side effects most often reported by people who received the maternal RSV vaccine were pain at the injection site, headache, muscle pain, and nausea. Although not common, a dangerous high blood pressure condition called pre- eclampsia occurred in 1.8% of people who received the maternal RSV vaccine compared to 1.4% of people who received a placebo. The clinical trials identified a small increase in the number of births in vaccinated people. It is not clear if this is a true safety problem related to RSV vaccine or if this occurred for reasons unrelated to vaccination. To reduce the potential risk of and complications from RSV disease, FDA approved the maternal RSV vaccine for use during weeks 32 through 36 of while additional studies are conducted. FDA is requiring the queen producer to do additional studies that will look more closely at the potential risk of births and -related high blood pressure issues in mothers, including pre-eclampsia. Severe allergic reactions to vaccines are rare but can happen after any vaccine and can be life-threatening. If you see signs of a severe allergic reaction after vaccination (hives, swelling of the face and throat, difficulty breathing, a fast heartbeat, dizziness, or weakness), seek immediate medical care by calling 911. As with any medicine or vaccine there is a very remote chance of the vaccine causing other serious injury or after vaccination. Adverse events following vaccination should be reported to the Vaccine Adverse Event Reporting System (VAERS), even if it???s not clear that the vaccine caused the adverse event. You or your doctor can report an adverse event to CDC and FDA through VAERS. If you need further assistance reporting toVAERS, please email or call . If you have any questions about side effects from the maternal RSV vaccine, talk with your healthcare provider. Do I need a prescription for a maternal RSV vaccine? Depending on where you live and where you go to get the vaccine, you might need a prescription. [facility] [place] Where to Find Vaccines for information on prescriptions for vaccines. How do I pay for the maternal RSV vaccine? Private health insurance Most private health insurance plans cover the maternal RSV vaccine, but there may be a cost to you depending on your plan. Contact your insurer to find out. Medicaid Beginning November 16, 2022, most people with coverage from Medicaid and Children???s Health Insurance Program (CHIP) will be guaranteed coverage of all vaccines recommended by the Advisory Committee on Immunization Practice at no cost to them. * Attachments The following attachments cannot be sent through Care Everywhere. * : Weeks 26 to 30 ([place]) documented in this encounter Progress Notes * Maggie Pena MD - 01/16/2025 9:00 AM EST [facility] - ICU REGISTERED NURSE & [facility]'S HEALTH THIRD TRIMESTER NOTE Patient: Orly Florian Age: 29 y.o. Sex: female : 1995 Visit Date: 01/16/2025 Visit Type: f/u OB Chief Complaint Patient presents with Routine Visit Orly Florian is a 29 y.o. at 29w0d by L=9 (VIOLET 04/03/2025) who presents for a routine visit. She denies vaginal bleeding, leakage of fluid, decreased movements, or contractions. Today, she is doing well. Her is complicated by: History of section x3 > desires repeat w/ BTL Past with possible focal placenta accreta History of gestational hypertension History of PreEclampsia (2017) Tobacco use in Anxiety History of recurrent loss Desires sterilization Gallstones Size < dates (measuring 24 at 29wk PNV) The following portions of the chart were reviewed this encounter and updated as appropriate: Objective Physical Exam Weight: 118 lb 12.8 oz (53.9 kg) Expected Total Weight Gain: 25 lb (11.5 kg)-35 lb (16 kg) Pregravid BMI: 18.94 BP: 116/73 Heart Rate: 148 Fundal Height (cm): 24 cm Physical Exam Constitutional: Appearance: Normal appearance. Pulmonary: Effort: Pulmonary effort is normal. Abdominal: Palpations: Abdomen is soft. Musculoskeletal: General: Normal range of motion. Neurological: General: No focal deficit present. Mental Status: She is alert and oriented to person, place, and time. Skin: General: Skin is warm and dry. Psychiatric: Mood and Affect: Mood normal. Behavior: Behavior normal. Vitals reviewed. Plan/Overview : [place] sex: Female Delivery Plans Planned delivery method: Post-Delivery Plans Feeding intentions: Breast Milk and Formula Planned control: Female Sterilization Assessment/Plan Problem List Items Addressed This Visit Past history of gestational hypertension Overview - 2018 GHTN, mild PreE on labetolol - Baseline P/C, CMP with CBC ordered at IOB visit 08/30 >08/31/24: Hgb 12.7 plt 286 AST/ALT: Cr 0.5 P/C unable to calculate (protein too low) - Initiate low dose aspirin at 12 weeks until delivery > rx sent, pt reports compliance 29 weeks gestation of - Primary Overview labs: Blood type: O+ (04/29/23) Ab screen: neg (09/13/24) Hgb: 12.7 (08/31/24) > 13.5 (09/13/24) > 12.5 (12/16/24) Plt: 286 (08/31/24) >287 (09/13/24) > 255 (12/16/24) HIV: NR (09/13/24) Syph ab: neg (09/13/24) HBSag: NR (09/13/24) HCV: NR (09/13/24) GC: neg (09/13/24) CT: neg (09/13/24) 1hr: 122 (12/16) 3hr: NI GBS: @ 36 wks Pap: NILM (09/13/24) Ucx: neg (09/13/24) Genetics: Qnatal - low-risk F Ultrasound 08/31/24: IUP, +FHT. Dating by L=9 09/13/24: IUP with FHR 159bpm. CRL 47mm, consistent with 11w1d, which matches LMP and previous dating. 11/16: SIUP, ceph, post plac w/o previa, CCI, FHR 158, MVP 4.2, EFW 357g (54%ile), julian nl 01/16/25: pending final read Immunizations: Rubella: immune Varicella: Immunization x2 in chart Tdap: @ 28 wks Flu: 12/16 RSV: @32-36w Relevant Orders Tdap vaccine greater than or equal to 7 years old IM POCT URISTIX Previous section in , antepartum Overview - previous CD x 3 > 2018: 2/2 failure to progress > pt did not dilate past 4-5cm > 2021 > 2023 -In last CD 04/2023- Op Report from [facility] in [facility] Dense adhesions were encountered between the subcutaneous [...] move forward with BTL. Consents signed 12/16/24. Anxiety Overview - History of anxiety - Not on meds - Reports stable mood - Continue to monitor care for patient with recurrent loss Overview 4x G5: 2019 IAB 10wk G6: 2020 SAB 8wk G7: 2020 SAB 4wk G8: 2020 SAB 4wk - prior APLS testing 2020 wnl Tobacco use disorder complicating , childbirth, and the puerperium Overview daily tobacco use encourage cessation. Information on [place] Quitline If persistent use 1/2 PPD consider repeat growth 3rd trimester due to risk of growth restriction surveillance at 36 weeks due to risk stillbirth LD- full flavor Positive cervical high risk HPV DNA test Overview -Pap 06/10/2023- NILM with +HR HPV, negative for 16/18 (In Care Everywhere, [facility]) -Repeat collected IOB 09/13/24 > NILM (HPV did not reflex 2/2 age) Past history of hemorrhage Overview 2018: Hgb 7.9 on PPD1 and she was transfused with 2UpRBCs Sterilization requested Overview - Medicaid consents signed [...] salpingectomy as well as Bilateral tubal ligation. Gallstone Overview - 12/16/24: reports being seen in ED near home for abdominal pain, determined to be caused by multiple gallstones. Patient does not desire surgery, triggered by spicy foods. Has been intermittently painful. Recommended avoiding fatty/spicy foods, return precautions given. Uterine size for dates discrepancy Overview Patient measuring 24wks at 29wk visit Growth US following visit (01/16/25) > pending final read Flu vaccine received 12/16/24 Tdap ordered 01/16/25 US following PNV today, will f/u final read. Continue vitamin. Labs reviewed. Follow up in 2 weeks for a routine visit. Maggie Pena MD [facility] - ICU REGISTERED N[facility]SE [facility] 01/16/2025 Cosigned by Rajwinder Correia MD at 01/16/2025 7:18 PM EST Associated attestation - Rajwinder Correia MD - 01/16/2025 7:18 PM EST Continuity Clinic Attending Visit Note and Attestation: Patient seen and evaluated in clinic with Dr. Pena. She is here for Return OB visit. 29+0. No specific OB complaints Normotensive Continues tobacco use- encourage cessation Has f/u sono for growth and placental evaluation today following visit. Discussed that may still need MRI for further placental eval- she voices understanding- await MFM recs Tdap today RSV recommendations COVID booster recommendations Patient's history, exam, prenatals reviewed, care plan discussed and patient's questions asked/answered. Agree with care plan as outlined and edited in resident note. Attending Supervision Attestation: I personally saw and examined the patient on the date of resident/fellow evaluation listed on the note above. I have discussed the patient with the resident/fellow and agree with the resident/fellow's findings and treatment plan as written. (GC modifier) Rajwinder Correia MD [facility] - ICU REGISTERED [facility] Visit date: 01/16/2025 Signed: 01/16/25 documented in this encounter Plan of Treatment Upcoming Encounters Date Type Department Care Team (Late st Contact Info) Description 02/06/2025 12:30 PM EST Ancillary Procedure [facility] - ICU REGISTERED [facility]UR[facility] [address] [place] [address] 02/14/2025 12:30 PM EST Ancillary Procedure [facility] - ICU REGISTERED [facility] [address] [place] [address] 02/14/2025 1:45 PM EST Routine [facility] - ICU REGISTERED NUR[facility] [address] [facility] [address] [place] [address] Tash Menchaca MD [address] [facility] [address] [place] [address] 02/21/2025 2:00 PM EST Ancillary Procedure [facility] - ICU REGISTERED [facility]UR[facility] [address] [place] [address] 02/28/2025 9:30 AM EST Ancillary Procedure [facility] - ICU REGISTERED NURSE & Women's Health [facility] [place] [address] 03/07/2025 10:15 AM EST Ancillary Procedure [facility] - ICU REGISTERED NURSE & Women's [place] [address] [place] [address] 03/14/2025 10:15 AM EST Ancillary Procedure [facility] - ICU REGISTERED NUR[facility] & Women's [place] [address] [place] [address] 03/21/2025 9:30 AM EST Ancillary Procedure [facility] - [facility] [place] [address] [address] [place] [id number] documented as of this encounter Procedures Procedure Name Priority Date/Time Associated Diagnosis Comments POCT URISTIX Routine 01/16/2025 12:27 PM EST 29 weeks gestation of documented in this encounter Results * POCT URISTIX (01/16/2025 12:27 PM EST) Glucose, UA Negative [facility] Protein, UA Trace REL[facility] 01/16/2025 12:2 7 PM EST 01/16/2025 12:27 PM EST Narrative [facility] - 01/16/2025 12:27 PM EST [id number] ([id number]), OBGYN Clinics - [address] Lot: [id number], Expiry: 2025-11-16 Speech Instructor: SE us Rajwinder Correia MD LAB POINT OF CARE TEST DOCKED DEVICE ORDERABLES Final Result [facility] [address] [place] [address], documented in this encounter Visit Diagnoses Diagnosis Maternal care for unspecified type scar from previous delivery, not otherwise specified- Primary 29 weeks gestation of Past history of gestational hypertension Past history of hemorrhage Past history of placenta accreta Anxiety, not otherwise specified care for patient with recurrent loss, unspecified trimester Smoking (tobacco) complicating , third trimester Positive cervical high risk HPV DNA test Sterilization requested Gallstone Uterine size for dates discrepancy <Third trimester> documented in this encounter
--- OUTSIDE RECORDS SUMMARY | 2025-01-16 09:30 | XMS_ITS | Encounter Summary ---
Author Organization [facility] Address [address] [facility] [address] [place] [address] Care Team Providers Care Accounts Receivable Bookkeeper Name Role Phone Unavailable Primary Care Provider Unavailabl e Reason for Referral * Imaging (Routine) - Closed Specialty Diagnoses / Procedures Referred By Contac t Referred To Contact Diagnoses Maternal care for unspecified type scar from previous delivery Procedures MR pelvis wo IV contrast Maryjane Schreiber MD [address] [place] [address], [address] [place] [phone] Phone: tel: fax: [address] Referral ID Status Reason Start Date Expiration Date V isits Requested Visits Authorized [id number] Closed [facility] 01/16/2025 02/15/2026 1 1 Reason for Visit * Imaging (Routine) - Closed Specialty Diagnoses / Procedures Referred By Contac t Referred To Contact Obstetrics and Gynecology Diagnoses 24 completed weeks of gestation Past history of placenta accreta Procedures US OB follow up transabdominal approach Rajwinder Correia MD [address] [place] [address], [address] [place] [address] Phone: tel: fax: [facility] - CAR SERVICER & Women's Health [facility] [place] [address] Phone: tel: fax: Referral ID Status Reason Start Date Expiration Date Visits Re quested Visits Authorized [id number] Closed 12/16/2024 01/15/2026 1 1 Encounter Details Date Type Department Care Team (Latest Contact Info) Description 01/16/2025 9:30 AM EST Ancillary Procedure [facility] - [facility] [address] [place] [address] Maryjane Schreiber MD [address] [place] [address], [address] [place] [address] Encounter for screening for growth retardation [Z36.4] (Primary Dx); Maternal care for unspecified type scar from previous delivery [O34.219]; care for patient with recurrent loss, third trimester [O26.23]; Liver and biliary tract disorders in , third trimester [O26.613]; Past history of placenta accreta [Z87.59] Social History Tobacco Use Types Packs/Day Years [...] on file documented as of this encounter Progress Notes * Maryjane Schreiber MD - 01/16/2025 9:30 AM EST MRI ordered for placental evaluation Maryjane Schreiber MD documented in this encounter Plan of Treatment Upcoming Encounters Date Type Department Care Team (Late st Contact Info) Description 02/06/2025 12:30 PM EST Ancillary Procedure [facility] - [facility] [address] [place] [address] 02/14/2025 12:30 PM EST Ancillary Procedure [facility] - CAR [facility] & Women's [address] [address] 02/14/2025 1:45 PM EST Routine [facility] - [facility] Women's [address] [place] [address] Tash Menchaca MD [address] [facility] [address] [place] [address] 02/21/2025 2:00 PM EST Ancillary Procedure [facility] - [facility] Women's [address] [address] 02/28/2025 9:30 AM EST Ancillary Procedure [facility] - CAR [facility] Women's [address] [address] 03/07/2025 10:15 AM EST Ancillary Procedure [facility] - [facility] [address] [place] [address] 03/14/2025 10:15 AM EST Ancillary Procedure [facility] - CAR [facility] Women's [address] [address] 03/21/2025 9:30 AM EST Ancillary Procedure [facility] - CAR [facility]IC[facility] & Women's [address] [address] Scheduled Orders Name Type Priority Associated Diagnoses Orde r Schedule MR pelvis wo IV contrast Imaging Routine Maternal care for unspecified type scar from previous delivery [O34.219] Expected: 01/16/2025, Expires: 01/16/2026 documented as of this encounter Procedures Procedure Name Priority Date/Time Associated Diagnosis Comments US OB FOLLOW UP TRANSABDOMINAL APPROACH Routine 01/16/2025 9:28 AM EST 24 completed weeks of gestation Past history of placenta accreta documented in this encounter Visit Diagnoses Diagnosis Encounter for screening for growth retardation [Z36.4]- Primary Maternal care for unspecified type scar from previous delivery [O34.219] care for patient with recurrent loss, third trimester [O26.23] Liver and biliary tract disorders in , third trimester [O26.613] Past history of placenta accreta [Z87.59] documented in this encounter
--- OUTSIDE RECORDS SUMMARY | 2025-01-30 11:00 | XMS_ITS | Encounter Summary ---
Author Organization [facility] Address [address] [facility] [address] [place] [address] Care Team Providers Care Backend Java Developer Name Role Phone Jaya Karimi MD Primary Care Provider + [phone] Reason for Referral * Imaging (Routine) - Pending Review Specialty Diagnoses / Procedures Referred By Contac t Referred To Contact Obstetrics and Gynecology Diagnoses Smoking (tobacco) complicating , third trimester Procedures US biophysical profile wo non stress testing Rajwinder Correia MD [address] [place] [address], [address] [place] [phone] Phone: tel: fax: [facility] - TELEVISION REPAIRMAN & Women's Health [address] [place], [place] [id number] Phone: tel: fax: Referral ID Status Reason Start Date Expiration Date V isits Requested Visits Authorized [id number] Pending Review 02/01/2025 03/03/2026 5 5 * Imaging (Routine) - Pending Review Specialty Diagnoses / Procedures Referred By Contac t Referred To Contact Obstetrics and Gynecology Diagnoses 31 weeks gestation of Procedures US OB follow up transabdominal approach Rajwinder Correia MD [address] [place] [address], [address] [place] [address] Phone: tel: fax: [facility] - TELEVISION REPAIRMAN & Women's Health [address] [place] [address] Phone: tel: fax: Referral ID Status Reason Start Date Expiration Date V isits Requested Visits Authorized [id number] Pending Review 01/30/2025 03/01/2026 3 3 Reason for Visit * Reason Comments Routine Visit 31+0 weeks Encounter Details Date Type Department Care Team (Latest Contact Info) Description 01/30/2025 11:00 AM EST Routine [facility] - TELEVISION REPAIRMAN & Women's Health [address] [facility] [address] [place] [address] Myesha Childers MD [address] [facility] [address] [place] [address] Maternal care for low transverse scar from previous delivery (Primary Dx); 31 weeks gestation of ; Past history of placenta accreta; Past history of gestational hypertension; Smoking (tobacco) complicating , third trimester; Anxiety, not otherwise specified; care for patient with recurrent loss, third trimester; Sterilization requested; Gallstone; Past history of hemorrhage; Supervision of high risk , unspecified, third trimester Social History Tobacco Use Types Packs/Day Years [...] Sign Reading Time Taken Comments Blood Pressure 117/70 01/30/2025 11:46 AM EST Pulse - - Temperature - - Respiratory Rate - - Oxygen Saturation - - Inhaled Oxygen Concentration - - Weight 55.1 kg (121 lb 6.4 oz) 01/30/2025 11:46 AM EST Height - - Body Mass Index 23.71 07/28/2024 9:19 AM EDT documented in this encounter Progress Notes * Myesha Childers MD - 01/30/2025 11:00 AM EST [facility] - TELEVISION REPAIRMAN & WOMEN'S HEALTH THIRD TRIMESTER NOTE Patient: Orly Florian Age: 30 y.o. Sex: female : 1995 Visit Date: 01/30/2025 Visit Type: Follow-up Chief Complaint Patient presents with Routine Visit 31+0 weeks History of Present Illness: Orly Florian is a 30 y.o. at 31w0d by L=9 with a working estimated date of delivery of 04/03/2025 who presents for a routine visit. She denies vaginal bleeding, leakage of fluid or decreased movements. She reports no uterine contractions. 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 History of PreEclampsia (2018) Tobacco use in Anxiety History of recurrent loss Desires sterilization Gallstones History of hemorrhage The following portions of the chart were reviewed this encounter and updated as appropriate: Physical Exam: Weight: 121 lb 6.4 oz (55.1 kg) Expected Total Weight Gain: 25 lb (11.5 kg)-35 lb (16 kg) Pregravid BMI: 18.94 BP: 117/70 Heart Rate: 141 Fundal Height (cm): 31 cm Plan/Overview: : Lan[place] sex: Female Delivery Plans Planned delivery method: Post-Delivery Plans Feeding intentions: Breast Milk and Formula Planned control: Female Sterilization Problem List Items Addressed This Visit Past history of gestational hypertension Overview - 2017 GHTN, mild PreE on labetolol - Baseline P/C, CMP with CBC ordered at IOB visit 08/30 >08/31/24: Hgb 12.7 plt 286 AST/ALT: Cr 0.5 P/C unable to calculate (protein too low) - Initiate low dose aspirin at 12 weeks until delivery > rx sent, pt reports compliance 31 weeks gestation of - Primary Overview labs: [...] 4.2, EFW 357g (54%ile), julian nl 01/16/25: cephalic, posterior placenta, EFW 1254g (29%tile) Immunizations: Rubella: immune Varicella: Immunization x2 in chart Tdap: 01/2025 Flu: 11/2024 RSV: @32-36w Relevant Orders POCT URISTIX (Completed) US OB follow up transabdominal approach Previous section in , antepartum Overview - previous CD x 3 G4: 2018 C/S, female 5lb 14oz, c/b PreE, failure to progress, GHTN, chorioamnionitis, PPH G9: 2021 C/S, female, 6lb 8oz, c/b focal accreta G10: 2023 C/S, female 7lb, c/b uterine inversion - CD 04/2023- Op Report from [facility] Dense adhesions were encountered between the [...] Reports stable mood - Continue to monitor Relevant Medications sertraline (Zoloft) 50 MG tablet care for patient with recurrent loss Overview 4x G5: 2019 IAB 10wk G6: 2020 SAB 8wk G7: 2020 SAB 4wk G8: 2020 SAB 4wk - prior APLS testing 2020 wnl Tobacco use disorder complicating , childbirth, and the puerperium Overview daily tobacco use encourage cessation. Information on [place] Quitline If persistent use 1/2 PPD consider repeat growth 3rd trimester due to risk of growth restriction surveillance at 36 weeks due to risk stillbirth LD- full flavor Relevant Orders US biophysical profile wo non stress testing Past history of hemorrhage Overview 2018: Hgb 7.9 on PPD1 and she was transfused with 2UpRBCs Sterilization requested Overview - Medicaid consents signed 12/16/24. Scanned into media. see previous note for counseling Gallstone Overview - 12/16/24: reports being seen in ED near home for abdominal pain, determined to be caused by multiple gallstones. Patient does not desire surgery, triggered by spicy foods. Has been intermittently painful. Recommended avoiding fatty/spicy foods, return precautions given. testing at 36wks Continue vitamin. Labs reviewed. Labor precautions and kick counts reviewed Follow up in 2 week(s) for a routine visit. [facility] - TELEVISION REPAIRMAN & WOMEN'S HEALTH 02/01/2025 Cosigned by Rajwinder Correia MD at 02/01/2025 3:16 PM EST * Rajwinder Correia MD - 01/30/2025 11:00 AM EST Continuity Clinic Attending Visit Note and Attestation: Patient's prenatals reviewed and care plan discussed with Dr. Childers in clinic. 31+0 Normotensive Hx CD x3 with hx focal accreta and concern for posterior accreta again this -has MRI ordered, but not currently scheduled. To front office java developer following this visit and Gato Mendez helping to get pt scheduled for this testing for clearer evaluation of placenta. Increasing anxiety symptoms- agree with start of Zoloft. Continue to monitor mood. Counseling recommended. Repeat growth scan at 32 weeks ordered (last growth 01/16- EFW 29%ile AC 39%ile) BPPs for continued tobacco use also ordered to start 36 weeks (if has not been delivered) Agree with care plan as outlined in resident note. Attending Supervision Attestation: This visit qualifies for the primary care exception. I have reviewed the care provided by the resident/fellow as documented above. The resident/fellow has completed more than 6 months in an approved [employer] residency program. I was in clinic during the time the resident/fellow evaluated the patient. This service will not be billed higher than a level 3 code for the specific visit type. (GE modifier) Rajwinder Correia MD [facility] - TELEVISION REPAIRMAN & WOMEN'S HEALTH Visit date: 01/30/2025 Signed: 01/30/25 documented in this encounter Plan of Treatment Upcoming Encounters Date Type Department Care Team (Late st Contact Info) Description 02/06/2025 12:30 PM EST Ancillary Procedure [facility] - TELEVISION REPAIRMAN & [facility] [address] [place] [address] 02/14/2025 12:30 PM EST Ancillary Procedure [facility] - TELEVISION REPAIRMAN & [facility] [address] [place] [address] 02/14/2025 1:45 PM EST Routine [facility] - TELEVISION REPAIRMAN & [facility] [address] [place] [address] [address] [place] [address] Tash Menchaca MD [address] [facility] [address] [place] [address] 02/21/2025 2:00 PM EST Ancillary Procedure [facility] - TELEVISION REPAIRMAN & [facility] [address] [place] [address] 02/28/2025 9:30 AM EST Ancillary Procedure [facility] - TELEVISION REPAIRMAN & [facility] [address] [place] [address] 03/07/2025 10:15 AM EST Ancillary Procedure [facility] - TELEVISION REPAIRMAN & Women's Health [facility] [place] [address] 03/14/2025 10:15 AM EST Ancillary Procedure [facility] - TELEVISION REPAIRMAN & Women's [place] [address] [place] [address] 03/21/2025 9:30 AM EST Ancillary Procedure [facility] - TELEVISION REPAIRMAN & Women's [facility] [place] [address] Scheduled Orders Name Type Priority Associated Diagnoses Orde r Schedule US OB follow up transabdominal approach Imaging Routine 31 weeks gestation of Every 3 weeks for 3 Occurrences starting 01/30/2025 until 03/02/2025 US biophysical profile wo non stress testing Imaging Routine Smoking (tobacco) complicating , third trimester Once a week for 5 Occurrences starting 02/01/2025 until 02/01/2026 documented as of this encounter Procedures Procedure Name Priority Date/Time Associated Diagnosis Comments POCT URISTIX Routine 01/30/2025 12:01 PM EST 31 weeks gestation of documented in this encounter Results * POCT URISTIX (01/30/2025 12:01 PM EST) 01/30/2025 12:0 1 PM EST Narrative RELAY[facility] - 01/30/2025 12:01 PM EST Glucose negative Protein negative us Rajwinder Correia MD LAB POINT OF CARE TEST DOCKED DEVICE ORDERABLES Final Result [facility] [address] [place] [address], documented in this encounter Visit Diagnoses Diagnosis Maternal care for low transverse scar from previous delivery- Primary 31 weeks gestation of Past history of placenta accreta Past history of gestational hypertension Smoking (tobacco) complicating , third trimester Anxiety, not otherwise specified care for patient with recurrent loss, third trimester Sterilization requested Gallstone Past history of hemorrhage Supervision of high risk , unspecified, third trimester documented in this encounter Care Teams Backend Java Developer Relationship Specialty Start Date End Date Jaya Karimi MD [address] [place] [address] PCP - General Adolescent Medicine 01/30/25 documented as of this encounter
--- NOTE | 2025-02-01 14:53 | MR_ITS ---
FINAL REPORT TECHNIQUE: Multiplanar MR without contrast CLINICAL HISTORY: patient is 31 weeks 7th , pt has a hx of placenta accreta in concern for focal accreta COMPARISON: none FINDINGS: Exam significantly limited by motion artifact. This, in combination with later stage of , does not allow for diagnostic assessment of placenta accreta. The placenta is located left lateral and fundal. Cephalic presentation noted. There is incidental note made of nuchal cord. No significant free fluid. No obvious adnexal or uterine mass identified. IMPRESSION: Nondiagnostic evaluation for placenta accreta due to motion and stage of . nuchal cord noted. Reviewed, Interpreted and Dictated by Alfonso Tidwell MD Transcribed by Peggy Blanc Authenticated and [facility]
--- OUTSIDE RECORDS SUMMARY | 2025-02-01 15:48 | XMS_ITS | Encounter Summary ---
Author Organization [facility] Address [address] [place] [address] Care Team Providers Care Renewable Energy Technician Name Role Phone Jaya Karimi MD Primary Care Provider + [phone] Encounter Details Date Type Department Care Team (Latest Contact Info) Description 01/30/2025 Travel Social History Tobacco Use Types Packs/Day [...] PM EST Ancillary Procedure [facility] - SEXTON HELPER & Women's Health [address] [place] [address] 02/14/2025 12:30 PM EST Ancillary Procedure [facility] - SEXTON HELPER [facility] [address] [place] [address] 02/14/2025 1:45 PM EST Routine [facility] - SEXTON HELPER & [facility] [address] [place] [address] [address] [place] [address] Tash Menchaca MD [address] [facility] [address] [place] [address] 02/21/2025 2:00 PM EST Ancillary Procedure [facility] - SEXTON HELPER [facility] [address] [place] [address] 02/28/2025 9:30 AM EST Ancillary Procedure [facility] - SEXTON HELPER & [facility] [address] [place] [address] 03/07/2025 10:15 AM EST Ancillary Procedure [facility] - SEXTON HELPER & [facility] [address] [place] [address] 03/14/2025 10:15 AM EST Ancillary Procedure [facility] - SEXTON HELPER & [facility] [address] 03/21/2025 9:30 AM EST Ancillary Procedure [facility] - SEXTON HELPER [facility] [address] [place] [id number] documented as of this encounter Visit Diagnoses Not on filedocumented in this encounter Care Teams Renewable Energy Technician Relationship Specialty Start Date End Date Jaya Karimi MD [address] [place] [address] PCP - General Adolescent Medicine 01/30/25 documented as of this encounter
--- OUTSIDE RECORDS SUMMARY | 2025-02-01 15:49 | XMS_ITS | Encounter Summary ---
Author Organization [facility] Address [address] [place] [address] Care Team Providers Care Skeiner Name Role Phone Unavailable Primary Care Provider Unavailabl e Encounter Details Date Type Department Care Team (Latest Contact Info) Description 01/09/2025 Travel Social History Tobacco Use Types Packs/Day [...] Upcoming Encounters Date Type Department Care Team ( Contact Info) Description 02/06/2025 12:30 PM EST Ancillary Procedure [facility] - MATERIALS ENGINEER & Women's Health [address] [place] [address] 02/14/2025 12:30 PM EST Ancillary Procedure [facility] - MATERIALS ENGINEER & [facility] [address] [place] [address] 02/14/2025 1:45 PM EST Routine [facility] - MATERIALS ENGINEER & Women's [facility] [address] [facility] [address] [place] [address] Tash Menchaca MD [address] [facility] [address] [place] [address] 02/21/2025 2:00 PM EST Ancillary Procedure [facility] - MATERIALS ENGINEER & [facility] [address] [place] [address] 02/28/2025 9:30 AM EST Ancillary Procedure [facility] - MATERIALS ENGINEER & [facility] [address] [place] [address] 03/07/2025 10:15 AM EST Ancillary Procedure [facility] - MATERIALS ENGINEER & [facility] [address] [place] [address] 03/14/2025 10:15 AM EST Ancillary Procedure [facility] - MATERIALS ENGINEER & [facility] [address] [place] [address] 03/21/2025 9:30 AM EST Ancillary Procedure [facility] - MATERIALS ENGINEER & [facility] [address] [place] [phone] documented as of this encounter Visit Diagnoses Not on filedocumented in this encounter
--- OUTSIDE RECORDS SUMMARY | 2025-02-01 15:49 | XMS_ITS | Encounter Summary ---
Author Organization [facility] Address [address] [place] [address] Care Team Providers Care Registered Vascular Technologist (Rvt) Name Role Phone Unavailable Primary Care Provider Unavailabl e Encounter Details Date Type Department Care Team (Latest Contact Info) Description 12/16/2024 Travel Social History Tobacco Use Types Packs/Day [...] Department Care Team (Late Contact Info) Description 02/06/2025 12:30 PM EST Ancillary Procedure [facility] - ROUTE INSPECTOR & Women's Health [address] [place] [address] 02/14/2025 12:30 PM EST Ancillary Procedure [facility] - ROUTE INSPECTOR & Women's [facility] [address] [place] [address] 02/14/2025 1:45 PM EST Routine [facility] - ROUTE INSPECTOR & Women's [facility] [address] [facility] [address] [place] [address] Tash Menchaca MD [address] [facility] [address] [place] [address] 02/21/2025 2:00 PM EST Ancillary Procedure [facility] - ROUTE INSPECTOR & [facility]'s [facility] [address] [place] [address] 02/28/2025 9:30 AM EST Ancillary Procedure [facility] - ROUTE INSPECTOR & [facility] [address] [place] [phone] 03/07/2025 10:15 AM EST Ancillary Procedure [facility] - ROUTE INSPECTOR & [facility] [address] [place] [address] 03/14/2025 10:15 AM EST Ancillary Procedure [facility] - ROUTE INSPECTOR & [facility] [address] [place] [phone] 03/21/2025 9:30 AM EST Ancillary Procedure [facility] - ROUTE INSPECTOR & [facility] [address] [place] [phone] documented as of this encounter Visit Diagnoses Not on filedocumented in this encounter
--- OUTSIDE RECORDS SUMMARY | 2025-02-01 15:49 | XMS_ITS | Clinical Summary ---
Author Organization [facility] Address [address] [place] [address] Care Team Providers Care Sales Clerk Food Name Role Phone Jaya Karimi MD Primary Care Provider + [phone] Allergies Active Allergy Reactions Criticality Noted Date Comments Sulfamethoxazole 06/20/2021 Sulfamethoxazole-Trimethoprim Itching Low 2020 Trimethoprim 06/20/2021 Medications aspirin 81 MG chewable tablet Chew 81 mg in the morning and 81 mg in the evening. Active Vit-Fe Fumarate-FA ( Vitamin Plus Low Iron) 27-1 MG tabletIndicatio ns:,Pr egnancy Take 1 tablet by mouth in the morning for 30 days. Indications: , 30 tablet 11 5 02/16/20 25 Active sertraline (Zoloft) 50 MG tabletIndicatio ns:Anxiety, not otherwise specified Take 1 tablet by mouth in the morning. 30 tablet 5 03/01/19 26 Active Hospital, Clinic, or Other Facility Administered Medication Ordered Dose Route Frequency Start Date End Date Status aspirin chewable tablet 81 mgIndications:Past history of gestational hypertension 81 mg PO 2 times daily 09/20/2024 Active Active Problems Problem Noted Date Diagnosed Date Uterine size for dates discrepancy 01/16/2025 Overview (01/16/2025): Patient measuring 24wks at 29wk visit Growth US following visit (01/16/25) > pending final read Sterilization requested 12/16/2024 Overview (01/27/2025): - Medicaid consents signed 12/16/24. Scanned into media. see previous note for counseling Gallstone 12/16/2024 Overview (12/16/2024): - 12/16/24: reports being seen in ED near home for abdominal pain, determined to be caused by multiple gallstones. Patient does not desire surgery, triggered by spicy foods. Has been intermittently painful. Recommended avoiding fatty/spicy foods, return precautions given. Past history of hemorrhage 09/12/2024 Overview (09/12/2024): 2018: Hgb 7.9 on PPD1 and she was transfused with 2UpRBCs Previous section in , antepart um 08/29/2024 Overview (01/27/2025): - previous CD x 3 G4: 2018 C/S, female 5lb 14oz, c/b PreE, failure to progress, GHTN, chorioamnionitis, PPH G9: 2021 C/S, female, 6lb 8oz, c/b focal accreta G10: 2023 C/S, female 7lb, c/b uterine inversion - CD 04/2023- Op Report from [facility] in [facility] Dense adhesions were encountered between the [...] Past history of placenta accreta 08/29 Overview (01/14/2025): In 2018 at time of 1st CD [...] forward with BTL. Consents signed 12/16/24. 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 Information on [place] Quitline If persistent use 1/2 PPD consider repeat growth 3rd trimester due to risk of growth restriction surveillance at 36 weeks due to risk stillbirth LD- full flavor Positive cervical high risk HPV DNA test 025 Overview (10/11/2024): -Pap 06/10/2023- NILM with +HR HPV, negative for 16/18 (In Care Everywhere, [facility]) -Repeat collected IOB 09/13/24 > NILM (HPV did not reflex 2/2 age) Past history of gestational hypertensi on 09/26/2022 Overview (10/19/2024): - 2018 GHTN, mild PreE on labetolol - Baseline P/C, CMP with CBC ordered at IOB visit 08/30 >08/31/24: Hgb 12.7 plt 286 AST/ALT: Cr 0.5 P/C unable to calculate (protein too low) - Initiate low dose aspirin at 12 weeks until delivery > rx sent, pt reports compliance 31 weeks gestation of 11/06/2020 Overview (01/27/2025): labs: Blood type: O+ (04/29/23) Ab screen: [...] chart Tdap: 01/2025 Flu: 11/2024 RSV: @32-36w Estimated Date of Delivery Comme nts Yes 04/03/2025 Based on last me nstrual period of 06/27/2024 (Approximate) Resolved Problems Problem Noted Date Diagnosed Date Resolved Date Flu vaccination 12/16/2024 01/14/2025 Lesion of skin of breast 06/10/2023 Encounters Date Type Department Care Team Description 01/30/2025 11:00 AM EST Routine [facility] [address] [place] [id number] Myesha Childers MD Maternal care for low transverse scar from previous delivery (Primary Dx); 31 weeks gestation of ; Past history of placenta accreta; Past history of gestational hypertension; Smoking (tobacco) complicating , third trimester; Anxiety, not otherwise specified; care for patient with recurrent loss, third trimester; Sterilization requested; Gallstone; Past history of hemorrhage; Supervision of high risk , unspecified, third trimester 01/30/2025 Travel 01/23/2025 Travel 01/16/2025 9:30 AM EST Ancillary Procedure [facility] [address] [address] Maryjane Schreiber MD Encounter for screening for growth retardation [Z36.4] (Primary Dx); Maternal care for unspecified type scar from previous delivery [O34.219]; care for patient with recurrent loss, third trimester [O26.23]; Liver and biliary tract disorders in , third trimester [O26.613]; Past history of placenta accreta [Z87.59] 01/16/2025 9:00 AM EST Routine [facility] [address] [address] Maggie Pena MD Maternal care for unspecified type scar from [...] Uterine size for dates discrepancy <Third trimester> 01/16/2025 Travel 01/09/2025 Travel 12/16/2024 9:00 AM EDT Routine [facility] [address] [address] Monica Gardner MD Maternal care for low transverse scar from previous delivery (Primary Dx); Smoking (tobacco) complicating , unspecified trimester; 24 completed weeks of gestation; care for patient with recurrent loss, second trimester; Past history of placenta accreta; Anxiety, not otherwise specified; Past history of gestational hypertension; Positive cervical high risk HPV DNA test; Past history of hemorrhage; Flu vaccination; Sterilization requested; Gallstone 12/16/2024 Travel 12/09/2024 Travel 11/16/2024 11:00 AM EDT Routine [facility] [address] [address] Kota Cruz MD Maternal care for unspecified type scar from previous delivery, not otherwise specified (Primary Dx); 20 weeks gestation of ; Anxiety, not otherwise specified; Past history of gestational hypertension; Past history of placenta accreta; Past history of hemorrhage; Positive cervical high risk HPV DNA test; care for patient with recurrent loss, second trimester; Smoking (tobacco) complicating , second trimester; Flu vaccine 11/16/2024 Travel 11/09/2024 Travel from Last 3 Months Immunizations Immunization Administration Dates Next Due DTP / HiB 1995,1995 DTaP, Unspecified 02/21/1999,09/12/1996 HPV, Quadrivalent 09/08/2006 IPV 02/21/1999 Influenza Trivalent MDCK PF (Flucelvax) 12/16/2024,11/16/2024(Deferred: Other - left without injection) Influenza, quadrivalent PF ( fluarix, Afluria, Flulaval, Fluzone) 11/21/2022 Influenza, seasonal, injectable 11/11/2012 MMR 02/21/1999,09/12/1996 Meningococcal MCV4, Unspecified 09/08/2006 OPV 1995,1995 PPD Test 06/21/2024 Tdap 01/16/2025,03/04/2023,09/08/2006 Varicella 09/08/2006,09/12/1996 hiB, unspecified 09/12/1996 Family History [...] 6.4 oz) 01/30/2025 11:46 AM EST Height 152.4 cm (5') 07/28/2024 9:19 AM EDT Body Mass Index 23.71 07/28/2024 9:19 AM EDT Plan of Treatment Upcoming Encounters Date Type Department Care Team (Late st Contact Info) Description 02/06/2025 12:30 PM EST Ancillary Procedure [facility] [address] [place] [address] 02/14/2025 12:30 PM EST Ancillary Procedure [facility] [address] [place] [address] 02/14/2025 1:45 PM EST Routine [facility] [address] [place] [address] [address] [place] [address] Tash Menchaca MD [address] [facility] [address] [place] [address] 02/21/2025 2:00 PM EST Ancillary Procedure [facility] [address] [place] [address] 02/28/2025 9:30 AM EST Ancillary Procedure [facility] [address] [place] [address] 03/07/2025 10:15 AM EST Ancillary Procedure [facility] [address] [place] [address] 03/14/2025 10:15 AM EST Ancillary Procedure [facility] [address] [place] [address] 03/21/2025 9:30 AM EST Ancillary Procedure [facility] [address] [place] [address] Health Maintenance Due Date Last Done Comments Lipid Panel 1995 HPV Vaccines (2 - 2-dose series) 03/11/2007 09/08/2006 Hepatitis B Screening 2013 Hepatitis A Vaccines (1 of 2 - Risk 2-dose series) 2014 Hepatitis B Vaccines (1 of 3 - 19+ 3-dose series) 2014 Pneumococcal Vaccine (1 of 2 - PCV) 2014 Depression Risk Screening 02/17/2024 SDOH Screening 02/17/2024 COVID-19 Vaccine ( - season) 2024 Pap Smear 09/14/2027 09/13/2024 Cervical Cancer Screening 09/13/2029 HPV/Cotest 09/13/2029 09/13/2024 DTaP/Tdap/Td Vaccines (8 - Td or Tdap) 01/16/2035 01/16/2025, 03/04/2023, 09/08/2006, Additional history exists Zoster Vaccines (1 of 2) 2045 09/08/2006, 08/17 HIB Vaccines Completed 09/12/1996, 05/17, 1995 IPV Vaccines Completed 02/21/1999, 05/17, 1995 MMR Vaccines Completed 02/21/1999, 09/12/1996 Meningococcal Vaccine Aged Out 09/08/2006 No sabrina juan jose eligible based on patient's age to complete this topic Varicella Vaccines Completed 09/08/2006, 09/12/1996 HIV Screening Completed 09/13/2024 Hepatitis C Screening Completed 09/13/2024 Influenza Vaccine Completed 12/16/2024, , 11/11/2012 Meningococcal B Vaccine Aged Out No l onger eligible based on patient's age to complete this topic Rotavirus Vaccines Aged Out No longer eligible based on patient's age to complete this topic Procedures Procedure Name Priority Date/Time Associated Diagnosis Comments POCT URISTIX Routine 01/30/2025 12:01 PM EST 31 weeks gestation of POCT URISTIX Routine 01/16/2025 12:27 PM EST 29 weeks gestation of US OB FOLLOW UP TRANSABDOMINAL APPROACH Routine 01/16/2025 9:28 AM EST 24 completed weeks of gestation Past history of placenta accreta POCT URISTIX Routine 12/16/2024 10:06 AM EDT 24 completed weeks of gestation CBC AND DIFFERENTIAL Routine 12/16/2024 9:55 AM EDT 24 completed weeks of gestation GLUCOSE, GESTATIONAL SCREEN (50G)-135 CUTOFF Routine 12/16/2024 9:54 AM EDT 24 completed weeks of gestation POCT MULTISTIX 10SG Routine 11/16/2024 1 2:44 PM EDT 20 weeks gestation of US OB 14+ WEEKS ANATOMY SCAN Routine 11/16/2024 12:39 PM EDT Past history of placenta accreta IMAGE-GUIDED PAP W/ AGE BASED SCR, W/ CT/NG ([id number]) Routine 09/13/2024 5:09 PM EDT Screening for malignant neoplasm of cervix HEPATITIS C AB W/REFL TO HCV RNA, QN, PCR Routine 09/13/2024 9:45 AM EDT Hepatitis C screening HIV-1 AND HIV-2 ANTIBODIES Routine 09/13/2024 9:45 AM EDT Encounter for sexually transmitted infection screening from Last 3 Months or Most Recently Relevant to Health Maintenance Results * POCT URISTIX (01/30/2025 12:01 PM EST) Only the most recent of3 resultswithin the time period is included. 01/30/2025 12:0 1 PM EST Narrative [facility] - 01/30/2025 12:01 PM EST Glucose negative Protein negative us Rajwinder Correia MD LAB POINT OF CARE TEST DOCKED DEVICE ORDERABLES Final Result [facility] [address] [place] [address], [place] * US OB follow up transabdominal approach (01/16/2025 9:28 AM EST) Anatomical Region Laterality Modality Body Ultrasound 01/16/2025 9:28 AM EST Narrative 01/16/2025 12:16 PM EST Obstetrics Report Signed Final 01/16/2025 12:16 PM Patient Info ID: [id number] : 1995 (29 y)(F) Name: ORLY FLORIAN Date: 01/16/2025 9:28 AM Performed By Attending: Maryjane Schreiber MD Referred By: Monica Gardner MD Performed By: Vanna Gatica RDMS Ref Address: [address] [place] [address] Exam Location:[facility] Secondary Rajwinder Correia MD phy.: Address: [address] [place] [address] Service(s) Provided Code OB Follow-up [id number] Indications 29 weeks gestation of Encounter for [...] cm Pt had rpv this morning Dr schreiber in with pt, notified of results Score= [...] Maryjane Schreiber MD Electronically Signed Final Report 01/16/2025 12:16 PM Procedure Note System, Provider Not In - 01/16/2025 Obstetrics Report Signed Final 512:16 PM Patient Info ID: [id number] : 1995 (29y)(F) Name: ORLY FLORIAN Date: 01/16/2025 9:28AM Performed By Attending: Maryjane Schreiber MD Referred By: David MORALES Performed By: Vanna Gatica RDMS Ref Address: [address] [place] [address] Exam Location:[facility] Secondary Jeff MORALES phy.: Address: [address] [place] [id number] Service(s) Provided Code OB Follow-[id number] Indications 29 weeks gestation of Encounter for [...] cm Pt had rpv this morning Dr tonismae in with pt, notified of results Score= [...] Maryjane Schreiber MD Electronically Signed Final Report 01/16/2025 12:16 PM us Rajwinder Correia MD IMG OB US PROCEDURES Final Re sult * (ABNORMAL) CBC and differential (Q6399) (12/16/2024 [...] Agency Comment Performing Organization Information: Site ID: [id number] Name: [facility] Address: [address] [place] [id number] Director: Dr. Gui Weber Rajwinder Correia MD LAB BLOOD ORDERABLES [place] [address], * GLUCOSE, GESTATIONAL SCREEN (50G)-135 CUTOFF (12/16/2024 9:54 AM EDT) Pathologist [facility] GLUCOSE, GESTATIONAL SCREEN (50G)-135 CUTOFF 122 <135 mg/dL [facility] 12/16/2024 9:54 AM EDT 12/16/2024 6:42 PM EDT Narrative Resulting Agency Comment Performing Organization Information: Site ID: CB Name: [employer] [facility] Address: [address] [place] [phone] Director: Omkar Maxwell us Rajwinder Correia MD LAB BLOOD ORDERABLES Final Re sult Performing Organization Address City/[facility]/ZIP Co de Phone Number [facility] [address] [place] [address], [place] * POCT MULTISTIX 10SG (11/16/2024 12:44 PM EDT) Glucose, UA Negative [facility] Bilirubin, UA Negative [facility] Ketones, UA Negative [facility] Spec Grav, UA 1.015 [facility] Blood, UA Negative [facility] pH, UA 7.5 [facility] Protein, UA Negative [facility] Urobilinogen, UA 0.2 E.U./dL [facility] Nitrite, UA Negative [facility] WBC, UA Negative [facility] Color, UA Yellow [facility] Clarity, UA Clear [facility] 11/16/2024 12:4 4 PM EDT 11/16/2024 12:44 PM EDT Narrative [facility] - 11/16/2024 12:44 PM EDT [id number] ([id number]), OBGYN Clinics - 410 Lot: [id number], Expiry: 2025-06-16 Track Car Operator: GAVIOTA us Carmen Stack MD LAB POINT OF CARE TEST DOCKED DEVICE ORDERABLES Final Result Performing Organization Address City/[facility]/ZIP Co de Phone Number [facility] [address] [place] [address], [place] * US OB 14+ weeks anatomy scan (11/16/2024 12:39 PM EDT) Anatomical Region Laterality Modality Body Ultrasound 11/16/2024 12:3 9 PM EDT Narrative 11/16/2024 3:22 PM EDT Obstetrics Report Signed Final 11/16/2024 3:22 PM Patient Info ID: [id number] : 1995 (29 y)(F) Name: ORLY FLORIAN Date: 11/16/2024 12:39 PM Performed By Attending: Maryjane Schreiber MD Referred By: Rajwinder Correia MD Performed By: Socorro Glass MD/Kalie Azar RDCT, RD Ref Address: [address] [place] [address] Exam Location:[facility] Service(s) Provided Code OB Complete > 14wks [address] Indications 20 weeks gestation of Encounter for screening for malformations Tobacco/Cigarette smoking in 2nd Tri Prior / Previous section / scar OB History : 10 Term: 6 SAB: 3 Livin Evaluation Number Of Fetuses: 1 Heart Rate(bpm): 158 Cardiac Activity: Present Presentation: Cephalic Placenta Location: Posterior, no previa Cord Insertion: Central cord insertion Amniotic Fluid ELSA FV: Subjectively adequate 4.2 Gestational Age LMP: 20w 2d Date: 06/27/24 VIOLET: 04/03/25 U/S Today: 20w 4d VIOLET: 04/01/25 Best: 20w 2d Det. By: LMP (06/27/24) VIOLET: 04/03/25 Biometry -------- BPD: 50.3 mm G.Age: 21w 2d 83 % CI: 82.73 % 70 - 86 OFD: 60.8 mm FL/HC: 17.8 % 16.8 - 19.8 HC: 177.6 mm G. Age: 20w 2d 40 % HC/AC: 1.11 1.09 - 1.39 AC: 159.3 mm G. Age: 21w 0d 69 % FL/BPD: 62.8 % FL: 31.6 mm G. Age: 19w 6d 26 % FL/AC: 19.8 % 20 - 24 HUM: 29.6 mm G. Age: 19w 5d CER: 21.6 mm G. Age: 20w 3d Est. FW: 357 gm 0lb 13oz 54 % Biometry - Extended NFT: 3.69 mm NB: 6.61 mm 44 % > 1 MoM LV: 5.75 mm CM: 4.61 mm Standard Anatomy Cranium: Appears normal Heart: Normal 4 chamber view Cavum Septi Pellu.: Appears normal RVOT: Bifurcation appears normal Cerebral Ventricles: Appear normal LVOT: Appears normal Choroid Plexus: Appears normal Aortic Arch: Appears normal Cerebellum: Appears normal Stomach: Normal location on left side Posterior Fossa: Appears normal Abdomen: Appears Normal Nuchal Fold: Appears normal Abdominal Wall: Cord insertion observed; no defects Nasal Bone: Present Cord Vessels: 3 vessel cord Face: Appears normal Kidneys: Appear normal Lips: Appears normal Bladder: Appears normal Palate: Alveolar ridge appears Spine: Appears normal normal. Thoracic: Appears normal Upper Extremities: Appear normal Diaphragm: Appears normal Lower Extremities: Appear normal Other: The cardiac axis is appropriately oriented in the chest. Interventricular septum has appropriate continuity with the aortic root. LVOT & RVOT cross in an appropriate anatomic relation. SVC / IVC seen. 3VV seen. 3VT seen. Fetus appears female. Cervix Uterus Adnexa Cervix: Length: 3.35 cm Measured transabdominal Adnexa No masses or fluid seen. Comments -------- The anatomic survey did not detect abnormality. Impression 1. Lanier intrauterine at 20w 2d with VIOLET of 04/03/2025 . 2. Cephalic presentation. 3. Posterior, no previa placenta. Central cord insertion 4. Normal cardiac activity with FHR 158 5. Normal amniotic fluid with MVP 4.2cm. 6. Estimated weight 357g is at the 54 %tile. 7. A detailed anatomic survey was completed and no gross anomalies noted. It must be noted that while ultrasound is a safe, effective, and sensitive screening modality, even after a normal anatomical survey there remains a residual risk of undetected abnormalities as the sensitivity of ultrasound can be affected by factors such as position, movement, and maternal body habitus. Recommendations Future ultrasound exam is recommended ONLY as clinically indicated. ANEUPLOIDY SCREENING is the standard of care [...] Maryjane Schreiber MD Electronically Signed Final Report 11/16/2024 3:22 PM Procedure Note System, Provider Not In - 11/16/2024 Obstetrics Report Signed Final 53:22 PM Patient Info ID: [id number] : 1995 (29y)(F) Name: ORLY FLORIAN Date: 11/16/2024 12:39PM Performed By Attending: Maryjane Schreiber MD Referred By: Jeff MORALES Performed By: Socorro Glass MD/Kalie Azar RDCT, [facility] Ref Address: [address] [place], [place] [id number] Exam Location:[facility] Service(s) Provided Code OB Complete > [id number] Indications 20 weeks gestation of Encounter for screening for malformations Tobacco/Cigarette smoking in 2nd Tri Prior / Previous section / scar OB History : 10 Term: 6 SAB: 3 Livin Evaluation Number Of Fetuses: 1 Heart Rate(bpm): 158 Cardiac Activity: Present Presentation: Cephalic Placenta Location: Posterior, no previa Cord Insertion: Central cord insertion Amniotic Fluid ELSA FV: Subjectively adequate 4.2 Gestational Age LMP: 20w 2d Date: 06/27/24 VIOLET:04/03/25 U/S Today: 20w 4d VIOLET:04/01/25 Best: 20w 2d Det. By: LMP (06/27/24) VIOLET:04/03/25 Biometry -------- BPD: 50.3 mm G.Age: 21w 2d 83 % CI: 82.73 %70 - 86 OFD: 60.8 mm FL/HC: 17.8 %16.8 - 19.8 HC: 177.6 mm G. Age: 20w 2d 40 % HC/AC: 1.111.09 - 1.39 AC: 159.3 mm G. Age: 21w 0d 69 % FL/BPD: 62.8% FL: 31.6 mm G. Age: 19w 6d 26 % FL/AC: 19.8 %20 - 24 HUM: 29.6 mm G. Age: 19w 5d CER: 21.6 mm G. Age: 20w 3d Est. FW: 357 gm 0lb 13oz 54 % Biometry - Extended NFT: 3.69 mm NB: 6.61 mm 44 % > 1 MoM LV: 5.75 mm CM: 4.61 mm Standard Anatomy Cranium: Appears normal Heart:Normal 4 chamber view Cavum Septi Pellu.: Appears normal RVOT:Bifurcation appears normal Cerebral Ventricles: Appear normal LVOT:Appears normal Choroid Plexus: Appears normal Aortic Arch:Appears normal Cerebellum: Appears normal Stomach:Normal location on left side Posterior Fossa: Appears normal Abdomen:Appears Normal Nuchal Fold: Appears normal Abdominal Wall: Cordinsertion observed; no defects Nasal Bone: Present Cord Vessels: 3vessel cord Face: Appears normal Kidneys:Appear normal Lips: Appears normal Bladder:Appears normal Palate: Alveolar ridge appears Spine:Appears normal normal. Thoracic: Appears normal Upper Extremities:Appear normal Diaphragm: Appears normal Lower Extremities:Appear normal Other: The cardiac axis is appropriately oriented in the fetalchest. Interventricular septum has appropriate continuity with the aortic root. LVOT & RVOT cross in an appropriateanatomic relation. SVC / IVC seen. 3VV seen. 3VT seen. Fetus appears female. Cervix Uterus Adnexa Cervix: Length: 3.35 cm Measured transabdominal Adnexa No masses or fluid seen. Comments -------- The anatomic survey did not detect abnormality. Impression 1. Lanier intrauterine at 20w 2d with VIOLET of 04/03/2025 . 2. Cephalic presentation. 3. Posterior, no previa placenta. Central cord insertion 4. Normal cardiac activity with FHR 158 5. Normal amniotic fluid with MVP 4.2cm. 6. Estimated weight 357g is at the 54 %tile. 7. A detailed anatomic survey was completed and no gross anomaliesnoted. It must be noted that while ultrasound is a safe, effective, andsensitive screening modality, even after a normal anatomical survey there remains a residual risk ofundetected abnormalities as the sensitivity of ultrasound can be affected by factors such as fetalposition, movement, and maternal body habitus. Recommendations Future ultrasound exam is recommended ONLY as clinically indicated. ANEUPLOIDY SCREENING is the standard of care [...] Maryjane Schreiber MD Electronically Signed Final Report 11/16/2024 3:22 PM us Natalie Mays MD IMG OB US PROCEDURES Final Resu lt * IMAGE-GUIDED PAP W/ AGE BASED SCR, W/ CT/NG ([id number]) (09/13/2024 5:09 PM EDT) COMMENT [facility] Comment: This order for age-based cervical cancer and STI screening follows ACOG guidelines(PB 168, 140, AQE375). See individual assays for performing site location. [...] been evaluated with the ThinPrep(R) Imaging System. EQUIPMENT SERVICE ASSOCIATE [facility] Comment: SLM, CT(ASCP) CT Screening Location: [place] [address] [place] [address] CLIA: [id number] Slide preparation performed at: [employer], [address] [place] [address], [id number] CLIA: [id number] COMMENT [facility] Comment: EXPLANATORY NOTE: The Pap [...] test SurePath(TM) specimens have been determined by [employer]. The modifications have not been cleared or approved by the FDA. This assay has been validated pursuant to the CLIA regulations and is used for clinical purposes. For additional information, please refer to https://education.[employer]/faq/SYS939 (This link is being provided for information/ educational purposes only.) Swab Cervix uteri structure / Unknown 09/13/2024 5:09 PM EDT 09/14/2024 6:10 AM EDT Narrative Resulting Agency Comment Performing Organization Information: Site ID: [place] [facility] Address: [address] [place] [id number] Director: Omkar Maxwell Site ID: [id number] [facility] Address: [address] [place] [address] Director: Jocelyn Lopez Natalie Mays MD LAB BLOOD ORDERABLES Final Resu lt Performing Organization Address [facility] Co de Phone Number [facility] [address] [place] [address], [place] * HEPATITIS C AB W/REFL TO HCV RNA, QN, PCR (09/13/2024 9:45 AM EDT) Hep C Virus Ab NON-REACTI VE NON-REACT KARLA [facility] Comment: HCV antibody was non-reactive. There is no laboratory evidence of HCV infection. In most cases, no further action is required. However, if recent HCV exposure is suspected, a test for HCV RNA (test code 83612) is suggested. For additional information please refer to http://education.[employer]/faq/NST29o5 (This link is being provided for informational/ educational purposes only.) Blood Venous blood specimen / Unknown 09/13/2024 9:45 AM EDT 09/13/2024 1:55 PM EDT Narrative [facility] - 09/15/2024 4:04 PM EDT MULTIPLE TESTING PRIORITIES; ROUTINE TESTING TO FOLLOW. Resulting Agency Comment Performing Organization Information: Site ID: [id number] Name: [facility] Address: [address] [place] [phone] Director: Omkar Maxwell us Natalie Mays MD LAB BLOOD ORDERABLES Final Resu lt Performing Organization Address [facility]/ZIP Co de Phone Number [facility] [address] [place] [address], [place] * HIV-1 and HIV-2 Antibodies (Fourth Generation) [...] Comment Performing Organization Information: Site ID: Name: [facility] Address: [address] [place] [id number] Director: Omkar Maxwell us Natalie Mays MD LAB BLOOD ORDERABLES Final Resu lt [facility] [address] [place] [address], from Last 3 Months or Most Recently Relevant to Health Maintenance Insurance [facility] Care Teams Sales Clerk Food Relationship Specialty Start Date End Date Jaya Karimi MD [address] [place] [address] PCP - General Adolescent Medicine 01/30/25
--- OUTSIDE RECORDS SUMMARY | 2025-02-01 15:49 | XMS_ITS | Encounter Summary ---
Author Organization [facility] Address [address] [place] [address] Care Team Providers Care Industrial Sociologist Name Role Phone Unavailable Primary Care Provider Unavailabl e Encounter Details Date Type Department Care Team (Latest Contact Info) Description 01/23/2025 Travel Social History Tobacco Use Types Packs/Day [...] PM EST Ancillary Procedure [facility] - DRUG ROOM CLERK [facility] [address] [place] [address] 02/14/2025 12:30 PM EST Ancillary Procedure [facility] - DRUG ROOM CLERK [facility] [address] [place] [address] 02/14/2025 1:45 PM EST Routine [facility] - DRUG ROOM CLERK [facility] [address] [facility] [address] [place] [address] Tash Menchaca MD [address] [facility] [address] [place] [address] 02/21/2025 2:00 PM EST Ancillary Procedure [facility] - DRUG ROOM CLERK [facility] [address] [place] [address] 02/28/2025 9:30 AM EST Ancillary Procedure [facility] - DRUG ROOM CLERK [facility] [address] [place] [address] 03/07/2025 10:15 AM EST Ancillary Procedure [facility] - DRUG ROOM CLERK [facility] [address] [place] [address] 03/14/2025 10:15 AM EST Ancillary Procedure [facility] - DRUG ROOM CLERK [facility] [address] [place] [address] 03/21/2025 9:30 AM EST Ancillary Procedure [facility] - DRUG ROOM CLERK [facility] [address] [place] [address] documented as of this encounter Visit Diagnoses Not on filedocumented in this encounter
--- OUTSIDE RECORDS SUMMARY | 2025-02-01 15:49 | XMS_ITS | Encounter Summary ---
Author Organization [facility] Address [address] [place] [address] Care Team Providers Care Merchandise Presentation Associate Name Role Phone Unavailable Primary Care Provider Unavailabl e Encounter Details Date Type Department Care Team (Latest Contact Info) Description 01/16/2025 Travel Social History Tobacco Use Types Packs/Day [...] PM EST Ancillary Procedure [facility] - WOOD PANEL INSPECTOR & [facility] [address] [place] [address] 02/14/2025 12:30 PM EST Ancillary Procedure [facility] - WOOD PANEL INSPECTOR [facility] [address] [place] [address] 02/14/2025 1:45 PM EST Routine [facility] - WOOD PANEL INSPECTOR [facility] [address] [facility] [address] [place] [address] Tash Menchaca MD [address] [facility] [address] [place] [address] 02/21/2025 2:00 PM EST Ancillary Procedure [facility] - WOOD PANEL INSPECTOR [facility] [address] [place] [address] 02/28/2025 9:30 AM EST Ancillary Procedure [facility] - WOOD PANEL INSPECTOR [facility] [address] [place] [address] 03/07/2025 10:15 AM EST Ancillary Procedure [facility] - WOOD PANEL INSPECTOR [facility] [address] [place] [address] 03/14/2025 10:15 AM EST Ancillary Procedure [facility] - WOOD PANEL INSPECTOR [facility] [address] [place] [address] 03/21/2025 9:30 AM EST Ancillary Procedure [facility] - WOOD PANEL INSPECTOR [facility] [address] [place] [address] documented as of this encounter Visit Diagnoses Not on filedocumented in this encounter
--- OUTSIDE RECORDS SUMMARY | 2025-02-01 15:49 | XMS_ITS | Encounter Summary ---
Author Organization [facility] Address [address] [place] [address] Care Team Providers Care Crisis Therapist Name Role Phone Unavailable Primary Care Provider Unavailabl e Encounter Details Date Type Department Care Team (Latest Contact Info) Description 12/09/2024 Travel Social History Tobacco Use Types Packs/Day [...] PM EST Ancillary Procedure [facility] - TEXTILE STYLIST & [facility] [address] [place] [address] 02/14/2025 12:30 PM EST Ancillary Procedure [facility] - TEXTILE STYLIST [facility] [address] [place] [address] 02/14/2025 1:45 PM EST Routine [facility] - TEXTILE STYLIST & [facility] [address] [facility] 410 [place] [address] Tash Menchaca MD [address] [facility] [address] [place] [address] 02/21/2025 2:00 PM EST Ancillary Procedure [facility] - TEXTILE STYLIST [facility] [address] [place] [address] 02/28/2025 9:30 AM EST Ancillary Procedure [facility] - TEXTILE STYLIST [facility] [address] [place] [address] 03/07/2025 10:15 AM EST Ancillary Procedure [facility] - TEXTILE STYLIST [facility] [address] [place] [address] 03/14/2025 10:15 AM EST Ancillary Procedure [facility] - TEXTILE STYLIST [facility] [address] [place] [address] 03/21/2025 9:30 AM EST Ancillary Procedure [facility] - TEXTILE STYLIST [facility] [address] [place] [address] documented as of this encounter Visit Diagnoses Not on filedocumented in this encounter
--- OUTSIDE RECORDS SUMMARY | 2025-02-01 15:49 | XMS_ITS | Clinical Summary ---
Author Organization [facility] Address [address] [place] [address] Care Team Providers Care Engineering Technician Parking Name Role Phone YeisonDebi johnson Primary Care Provider [phone] Allergies Active Allergy Reactions Criticality Noted Date [...] Date Smoking Tobacco: Every Day Cigarettes 1 13 Started: 2012 Smokeless Tobacco: Never Tobacco Cessation:Ready to Q uit: Not Asked; Counseling Given: Not Answered Alcohol Use Standard Drinks/Week Comments Not Currently 0 (1 standard drink = 0.6 oz pure alcohol) rarely, prior to (once monthly) [facility] [employer] Answer Date Recorded In the past 12 months has [employer], gas, oil, or water [employer] threatened to shut off services in your [...] and heating? Not hard at all 04/29/2023 [facility] [place] [facility] - Occupational Stress [...] money to buy more. Never true 04/29/19 24 Within the past 12 months, t he [...] things needed for daily living? No 04/29/2023 Mulberry Depression Scale Answer Date Recorded Mulberry Depression Scale Total 4 06/10/2023 The thought of harming myself has occurred to me . Unrecognized value 06/10/2023 Abuse Screen Answer Date Recorded [...] GED or equivalent No 04/29/2023 Preferred Language Emirati 04/29/2023 PHQ-2 Answer Date Recorded Retired PHQ-9: [...] 2 - PCV) 2014 ANNUAL PHYSICAL 11/30/2019 TDAP/TD VACCINES (3 - Td or Tdap) 03/04/2033 024, 09/08/2006 CHLAMYDIA SCREENING Discontinued 09/13/2024, 06/10/2023, 03/30/2023, Additional history exists HEPATITIS C SCREENING Completed 09/13/2024 , 09/13/2024, 09/26/2022 INFLUENZA VACCINE Completed 12/16/2024, , 11/11/2012, Additional history exists Medical Devices Implanted Type Area Lumber Puller Device Identifier Shelf Expiration Date Model / Serial / Lot Hemost Abs Surgicel Snow 4x4in - [id number] Implanted:Qty : 1 on 04/29/2023 by Juan Diego Fermin MD at [facility] Implant N/A: Uterus ETHICON DIV YVETTE Hardin AND Lashawn 09/15/2024 [id number] / / [id number] Procedures Procedure Name Priority Date/Time Associated Diagnosis [...] Reference Lab Report [facility] [address] [place] [address] or [phone] Edin Lan M.D., [employer] Fuels Research Engineer PATIENT NAME [facility] ORLY HERNANDEZ. [id number] AGE SEX SSN CLIENT REF # [id number] 28 1995 F [id number] [id number] REQUESTING Herbie. [place] [address] MATILDA CHRISTINE DATE COLLECTED DATE RECEIVED DATE [...] differentiate between HPV 18 and [address] REGISTRAR: JORDY NOVA (ASCP) CPT CODES: 39002, [id number], [id number] 06/15/2023 7:22 AM EDT [facility] ThinPrep Vial Collection / Unknown 06/10/2023 1:41 PM EDT 06/10/2023 1:41 PM EDT us Matilda Christine LEAD TINNER PATHOLOGY/CYTOLOGY ORDERAB LES Final Result [facility]
[address] [place] [address], * Obstetric Panel (09/26/2022 12:17 PM EDT) [...] 12:1 7 PM EDT 09/26/2022 Narrative [facility] (AMBULATORY) - 09/29/2022 8:35 PM EDT Performed at: - [facility] [address] [place], [place] [id number] Wireless Field Technician: Kashmir Knight PhD, Phone: [phone] Matilda Christine LEAD TINNER LAB BLOOD ORDERABLES Final Result [facility] ([facility]) [address] [place] [address], [facility] [address] [place] [address], from Last 3 Months or Most Recently [...] Of Support Discussed With: Patient Care Teams Engineering Technician Parking Relationship Specialty Start Date End Date Debi Campoverde DO [address] [place] [address] [place] [address] PCP - General Pediatrics 04/27/23
--- OUTSIDE RECORDS SUMMARY | 2025-02-01 15:49 | XMS_ITS | Encounter Summary ---
Author Organization [facility] Address [address] [place] [address] Care Team Providers Care Judge Name Role Phone Jaya Karimi MD Primary Care Provider [phone] Jaya Karimi MD Primary Care Provider [phone] Encounter Details Date Type Department Care Team ([facility] st Contact Info) Description 10/26/2024 Telephone [facility] [address] [facility] [place] [address] Pcp, None Social History Tobacco Use Types [...] PM EST Ancillary Procedure [facility] - NATURAL RESOURCE MANAGER & [facility] [address] [place] [address] 02/14/2025 12:30 PM EST Ancillary Procedure [facility] - NATURAL RESOURCE MANAGER [facility] [address] [place] [address] 02/14/2025 1:45 PM EST Routine [facility] - NATURAL RESOURCE MANAGER [facility] [address] [place] [address] [address] [place] [address] Tash Menchaca MD [address] [facility] [address] [place] [address] 02/21/2025 2:00 PM EST Ancillary Procedure [facility] - NATURAL RESOURCE MANAGER [facility] [address] [place] [address] 02/28/2025 9:30 AM EST Ancillary Procedure [facility] - NATURAL RESOURCE MANAGER [facility] [address] [place] [address] 03/07/2025 10:15 AM EST Ancillary Procedure [facility] - NATURAL RESOURCE MANAGER [facility] [address] [place] [address] 03/14/2025 10:15 AM EST Ancillary Procedure [facility] - NATURAL RESOURCE MANAGER [facility] [address] [place] [address] 03/21/2025 9:30 AM EST Ancillary Procedure [facility] - NATURAL RESOURCE MANAGER [facility] [address] [place] [address] documented as of this encounter Visit Diagnoses Not on filedocumented in this encounter Care Teams Judge Relationship Specialty Start Date End Date Jaya Karimi MD [address] [place] [address] PCP - General Adolescent Medicine 10/26/24 12/04/24 Jaya Karimi MD [address] [place] [address] PCP - General Adolescent Medicine 01/30/25 documented as of this encounter
== END 2025-02-01 23:59 | disposition home or self-care (01) ==
PROVIDERS: PCP Internal Medicine Adolescent Medicine; Visit Provider Obstetrics & Gynecology Maternal & Fetal Medicine
DX: O34.219 Maternal care for unspecified type scar from previous cesarean delivery (principal); O09.293 Supervision of pregnancy with other poor reproductive or obstetric history, third trimester; Z3A.31 31 weeks gestation of pregnancy
CPT/HCPCS: 72195